=== PATIENT | female | born 1975 | race Caucasian/White ===

== ENCOUNTER 2021-05-15 17:17 | Inpatient (IN) | payer OTHER, SELFPAY ==
[2021-05-15 17:31] VITALS: BP 102/82; BP 103/74; PULSE 121; PULSE 88; RESP 18; TEMP 36.4; O2SAT 100; O2SAT 94; BMI 24.0
--- NOTE | 2021-05-15 17:45 | ECG_ITS ---
Test Reason : MED CLEARANCE Blood Pressure : / mmHG Vent. Rate : 114 BPM Atrial Rate : 114 BPM P-R Int : 120 ms QRS Dur : 090 ms QT Int : 372 ms P-R-T Axes : 043 028 041 degrees QTc Int : 512 ms Sinus tachycardia Otherwise normal ECG No previous ECGs available Referred By: Katina Sawyer Electronically Signed By:MARGARITA PAYTON
--- NOTE | 2021-05-15 18:19 | ED.PSYCH ---
HPI - Psych General Chief Complaint: Psychiatric Symptoms Stated Complaint: si Time Seen by Provider: 05/15/21 17:45 Source: patient and EMS Mode of arrival: EMS Limitations: no limitations History of Present Illness HPI Narrative: 46-year-old female with a past medical history of high blood pressure, high cholesterol, GERD, alcohol abuse here with complaints of feeling depressed, suicidal. Patient has been living in a hotel. Staff called [facility] for wellness check. Mobile crisis was called to the site and a Section 12 was placed for transport to the hospital. Patient tells me for the last 30 days she has been drinking 1 bottle of vodka a day feeling suicidal depressed, not taking any of her medications. 2 days ago she cut her wrist in an attempt to kill herself. States I did not cut deep enough but wish I did. No homicidal ideations. No hallucinations. No additional substance use. Tetanus up-to-date Related Data Home Medications Medication Instructions Recorded Confirmed amlodipine 5 mg tablet 5 mg PO DAILY 05/15/21 05/15/21 pantoprazole 40 mg tablet,delayed 40 mg PO DAILY 05/15/21 05/15/21 release pravastatin 10 mg tablet 10 mg PO DAILY 05/15/21 05/15/21 Allergies Allergy/AdvReac Type Severity Reaction Status Date / Time No Known Allergies Allergy Verified 05/15/21 17:28 Review of Systems Review of Systems: Yes all other systems are reviewed and are negative Constitutional: Constitutional: Reports no additional constitutional complaints, Denies body ache(s), Denies chills, Denies fever(s), Denies headache(s) and Denies weakness Eyes: Eyes: Reports no additional eye complaints and Denies change in vision ENT: Reports system reviewed and no additional complaints, except as documented, Denies dizziness, Denies headache(s), Denies nasal congestion, Denies nasal discharge and Denies neck pain Cardiovascular: Cardiovascular: Reports no additional cardiovascular complaints, Denies chest pain, Denies leg edema and Denies dyspnea Respiratory: Respiratory: Reports no additional respiratory complaints, Denies cough and Denies dyspnea Gastrointestinal: Gastrointestinal: Reports no additional gastrointestinal complaints, Denies abdominal pain, Denies diarrhea, Denies nausea and Denies vomiting Genitourinary: Genitourinary: Reports no additional female genitourinary complaints and Denies urinary incontinence Musculoskeletal: Musculoskeletal: Reports no additional musculoskeletal complaints, Denies back pain, Denies arthralgias, Denies joint swelling, Denies neck pain, Denies numbness and Denies tingling Integumentary/Breasts: Skin/Breast: Reports system reviewed and no additional complaints, except as docu and Denies rash Neurologic: Reports system reviewed and no additional complaints, except as documented, Denies Abnormal speech present, Denies dizziness, Denies headache(s), Denies numbness, Denies tingling and Denies weakness Psychiatric: Psychiatric: Denies anxiety, Reports depression, Denies homicidal ideation and Reports suicidal ideation [facility] Past Medical History Attestation statement: The following information was validated with the patient. Source: old records reviewed and nursing notes reviewed Medical History (Updated 05/15/21 @ 21:05 by Katina Sawyer NP) GERD (gastroesophageal reflux disease) Hyperlipidemia Hypertension Social History Social History Alcohol intake: current Advance Directives: No Advance Directives Information Provided: No Patient : No Physical Exam Vital Signs: Vital Signs: Last Vital Signs Temp 98.2 F 05/15/21 20:38 Pulse 113 H 05/15/21 20:38 Resp 19 05/15/21 20:38 BP 109/73 05/15/21 20:38 Pulse Ox 100 05/15/21 20:38 Body Mass Index 24.0 Const: General: cooperative, healthy appearing, comfortable and no acute distress Orientation/consciousness: patient oriented x3 Limitations: no limitations HENMT: Head: Yes normal to inspection Ears: hearing grossly normal bilaterally General nose exam: Normal external nose present Face and sinus: Yes normal facial exam Mouth: Normal oral and palatal mucosa present Throat: Yes posterior oropharynx normal Eyes: General: appearance normal, both eyes and all related structures Pupils: Equal, round and reactive pupils present Neck: Neck: Yes normal visual inspection Chest: Chest palpation & inspection: normal inspection of the chest Resp: Effort & Inspection: normal respiratory effort Auscultation: clear to auscultation bilaterally Cardio: Rate: regular rate Rhythm: regular rhythm Peripheral pulses: Peripheral pulses 2+ throughout GI: Inspection: Yes normal to inspection Palpation (GI): Soft to palpation and nontender Auscultation: normal bowel sounds Back/Spine/Pelvis: Thoracic/Lumbar Spine: thoracic and lumbar spine normal to inspection Skin: General skin exam: no rashes or lesions noted Neuro: General: patient oriented x3, no focal motor deficits and normal sensation to monofilament Cranial nerves: Yes CN's II-XII intact bilaterally and Yes Equal, round and reactive pupils present Cognition (Neuro): normal cognition Speech: No Abnormal speech present Gait exam (Neuro): Normal gait present Motor exam (neuro): 5/5 motor strength present throughout Extrem: Other: To the right volar wrist there is a 3cm laceration. bleeding controlled General: Yes normal to inspection Psych: Other: flat affect Appearance: disheveled Course Course Course Narrative: 46-year-old female here with complaints of depression, suicidal thoughts, self-harm 2 days ago to the right wrist, daily alcohol abuse. Sent in on Section 12. Will need labs, drug screen, crisis evaluation. Right wrist was cleansed with hydrogen peroxide and normal saline and Steri-Strips replaced with a wrap. 2010-Labs reviewed. Sodium 122. Potassium 2.8. Chloride 88, carbon dioxide 16. Anion gap 21. Normal renal function. Spoke to Dr. Brewer from Nephrology. Recommended adding serum osmolality, urine studies. Recommended 2 L of lactated Ringer's and then a recheck of the sodium level. Also recommended potassium replacement. Ordered 60 mg of p.o. potassium and 10 mEq IV. ?multifactorial from alcohol use, poor PO intake. Nursing aware and patient was moved from the Behavioral pod to a monitored room. Seizure precautions placed. Spoke to Dr. Dodd who accepted admission from the medicine team. [facility] - Psych Medical Records Attestation: I reviewed the patient's medical records. Lab Data Attestation: I reviewed the patient's lab results. Result diagrams: 05/15/21 18:17 05/15/21 18:17 Labs: Lab Results 05/15/21 05/15/21 05/15/21 Range/Units 17:54 17:54 18:16 WBC (4.8-10.8) X10*3/uL RBC (4.20-5.50) X10*6/uL Hgb (12.0-16.0) g/dl Hct (37-47) % MCV (80-98) fL MCH (27.0-33.0) pg MCHC (31.0-35.0) g/dl RDW (11.0-16.0) % Plt Count (160-400) X10*3/uL MPV (9.4-12.3) fL Immature Gran % (Auto) (0.0-0.4) % Neut % (Auto) (45-73) % Lymph % (Auto) (20-40) % [place] % (Auto) (2-11) % Eos % (Auto) (0-4) % Baso % (Auto) (0-2) % Lymph # (Auto) (1.2-4.9) X10*3/uL [place] # (Auto) (0.1-1.2) X10*3/uL Eos # (Auto) (0.0-0.4) X10*3/uL Baso # (Auto) (0.0-0.2) X10*3/uL Abs Immat Gran (auto) (0.00-0.03) X10*3/uL Absolute Neuts (auto) (2.0-8.3) X10*3/uL Absolute Nucleated RBC (0.0-0.012) X10*3/uL Nucleated RBC % (auto) (0.0-0.2) /100WBC VBG pH (7.32-7.43) VBG pCO2 mmHg VBG pO2 mmHg VBG HCO3 (22-26) mmol/L VBG O2 Saturation % VBG Base Excess mmol/L Sodium (135-145) mmol/L Potassium (3.3-5.1) mmol/L Chloride (96-108) mmol/L Carbon Dioxide (22-29) mmol/L Anion Gap (12-20) BUN (9-16) mg/dL Creatinine (0.5-1.4) mg/dL Estim Creat Clear Calc Estimated GFR Random Glucose (60-115) mg/dL Lactic Acid (0.5-2.0) mmol/L Calcium (8.4-10.2) mg/dL Magnesium (1.6-2.6) mg/dL Total Bilirubin (0.0-1.0) mg/dL Direct Bilirubin (0.0-0.5) mg/dL AST (5-31) U/L ALT (0-31) U/L Alkaline Phosphatase (39-117) U/L Total Protein (6.5-8.0) g/dL Albumin (3.5-5.0) g/dL Urine Color Urine Appearance Urine pH (5.0-8.0) Ur Specific [place] (1.005-1.025) Urine Protein (NEG-TRACE) MG/DL Urine Glucose (UA) (NEG) MG/DL Urine Ketones (NEG) MG/DL Urine Blood (NEG) Urine Nitrite (NEG) Ur Leukocyte Esterase (NEG) Salicylates (15-30) mg/dL Urine Opiates Screen Not Detected (Not Detect) Urine Fentanyl Screen Not Detected (Not Detect) Acetaminophen (<30) mcg/mL Ur Barbiturates Screen Not Detected (Not Detect) Ur Phencyclidine Scrn Not Detected (Not Detect) Ur Amphetamines Screen Not Detected (Not Detect) U Benzodiazepines Scrn Not Detected (Not Detect) Urine Cocaine Screen Not Detected (Not Detect) U Marijuana (THC) Screen POSITIVE H (Not Detect) Ethyl Alcohol < 10 mg/dL Acetone, Qual (Negative) COVID-19 ([facility]) Negative (Negative) COVID-19 Clin Com See Note 05/15/21 05/15/21 05/15/21 Range/Units 18:17 18:17 18:17 WBC 7.9 (4.8-10.8) X10*3/uL RBC 3.71 L (4.20-5.50) X10*6/uL Hgb 12.5 (12.0-16.0) g/dl Hct 33.5 L (37-47) % MCV 90.3 (80-98) fL MCH 33.7 H (27.0-33.0) pg MCHC 37.3 H (31.0-35.0) g/dl RDW 13.2 (11.0-16.0) % Plt Count 176 (160-400) X10*3/uL MPV 10.9 (9.4-12.3) fL Immature Gran % (Auto) 0.8 H (0.0-0.4) % Neut % (Auto) 69.3 (45-73) % Lymph % (Auto) 15.6 L (20-40) % [place] % (Auto) 13.6 H (2-11) % Eos % (Auto) 0.6 (0-4) % Baso % (Auto) 0.1 (0-2) % Lymph # (Auto) 1.2 (1.2-4.9) X10*3/uL [place] # (Auto) 1.1 (0.1-1.2) X10*3/uL Eos # (Auto) 0.1 (0.0-0.4) X10*3/uL Baso # (Auto) 0.0 (0.0-0.2) X10*3/uL Abs Immat Gran (auto) 0.06 H (0.00-0.03) X10*3/uL Absolute Neuts (auto) 5.5 (2.0-8.3) X10*3/uL Absolute Nucleated RBC 0.000 (0.0-0.012) X10*3/uL Nucleated RBC % (auto) 0.0 (0.0-0.2) /100WBC VBG pH (7.32-7.43) VBG pCO2 mmHg VBG pO2 mmHg VBG HCO3 (22-26) mmol/L VBG O2 Saturation % VBG Base Excess mmol/L Sodium 122 L (135-145) mmol/L Potassium 2.8 L (3.3-5.1) mmol/L Chloride 88 L (96-108) mmol/L Carbon Dioxide 16 L (22-29) mmol/L Anion Gap 21 H (12-20) BUN 21 H (9-16) mg/dL Creatinine 0.80 (0.5-1.4) mg/dL Estim Creat Clear Calc 74.2 Estimated GFR > 60 Random Glucose 113 (60-115) mg/dL Lactic Acid (0.5-2.0) mmol/L Calcium 9.9 (8.4-10.2) mg/dL Magnesium 2.2 (1.6-2.6) mg/dL Total Bilirubin 0.8 (0.0-1.0) mg/dL Direct Bilirubin 0.3 (0.0-0.5) mg/dL AST 38 H (5-31) U/L ALT 17 (0-31) U/L Alkaline Phosphatase 85 (39-117) U/L Total Protein 7.4 (6.5-8.0) g/dL Albumin 4.7 (3.5-5.0) g/dL Urine Color Urine Appearance Urine pH (5.0-8.0) Ur Specific [place] (1.005-1.025) Urine Protein (NEG-TRACE) MG/DL Urine Glucose (UA) (NEG) MG/DL Urine Ketones (NEG) MG/DL Urine Blood (NEG) Urine Nitrite (NEG) Ur Leukocyte Esterase (NEG) Salicylates < 5.0 L (15-30) mg/dL Urine Opiates Screen (Not Detect) Urine Fentanyl Screen (Not Detect) Acetaminophen < 1 (<30) mcg/mL Ur Barbiturates Screen (Not Detect) Ur Phencyclidine Scrn (Not Detect) Ur Amphetamines Screen (Not Detect) U Benzodiazepines Scrn (Not Detect) Urine Cocaine Screen (Not Detect) U Marijuana (THC) Screen (Not Detect) Ethyl Alcohol mg/dL Acetone, Qual (Negative) COVID-19 ([facility]) (Negative) COVID-19 Clin Com 05/15/21 05/15/21 05/15/21 Range/Units 20:24 20:31 20:31 WBC (4.8-10.8) X10*3/uL RBC (4.20-5.50) X10*6/uL Hgb (12.0-16.0) g/dl Hct (37-47) % MCV (80-98) fL MCH (27.0-33.0) pg MCHC (31.0-35.0) g/dl RDW (11.0-16.0) % Plt Count (160-400) X10*3/uL MPV (9.4-12.3) fL Immature Gran % (Auto) (0.0-0.4) % Neut % (Auto) (45-73) % Lymph % (Auto) (20-40) % [place] % (Auto) (2-11) % Eos % (Auto) (0-4) % Baso % (Auto) (0-2) % Lymph # (Auto) (1.2-4.9) X10*3/uL [place] # (Auto) (0.1-1.2) X10*3/uL Eos # (Auto) (0.0-0.4) X10*3/uL Baso # (Auto) (0.0-0.2) X10*3/uL Abs Immat Gran (auto) (0.00-0.03) X10*3/uL Absolute Neuts (auto) (2.0-8.3) X10*3/uL Absolute Nucleated RBC (0.0-0.012) X10*3/uL Nucleated RBC % (auto) (0.0-0.2) /100WBC VBG pH (7.32-7.43) VBG pCO2 mmHg VBG pO2 mmHg VBG HCO3 (22-26) mmol/L VBG O2 Saturation % VBG Base Excess mmol/L Sodium (135-145) mmol/L Potassium (3.3-5.1) mmol/L Chloride (96-108) mmol/L Carbon Dioxide (22-29) mmol/L Anion Gap (12-20) BUN (9-16) mg/dL Creatinine (0.5-1.4) mg/dL Estim Creat Clear Calc Estimated GFR Random Glucose (60-115) mg/dL Lactic Acid 1.2 (0.5-2.0) mmol/L Calcium (8.4-10.2) mg/dL Magnesium (1.6-2.6) mg/dL Total Bilirubin (0.0-1.0) mg/dL Direct Bilirubin (0.0-0.5) mg/dL AST (5-31) U/L ALT (0-31) U/L Alkaline Phosphatase (39-117) U/L Total Protein (6.5-8.0) g/dL Albumin (3.5-5.0) g/dL Urine Color YELLOW Urine Appearance CLEAR Urine pH 6.5 (5.0-8.0) Ur Specific [place] <= 1.005 (1.005-1.025) Urine Protein TRACE (NEG-TRACE) MG/DL Urine Glucose (UA) NEG (NEG) MG/DL Urine Ketones 40 (NEG) MG/DL Urine Blood NEG (NEG) Urine Nitrite NEG (NEG) Ur Leukocyte Esterase NEG (NEG) Salicylates (15-30) mg/dL Urine Opiates Screen (Not Detect) Urine Fentanyl Screen (Not Detect) Acetaminophen (<30) mcg/mL Ur Barbiturates Screen (Not Detect) Ur Phencyclidine Scrn (Not Detect) Ur Amphetamines Screen (Not Detect) U Benzodiazepines Scrn (Not Detect) Urine Cocaine Screen (Not Detect) U Marijuana (THC) Screen (Not Detect) Ethyl Alcohol mg/dL Acetone, Qual Negative (Negative) COVID-19 ([facility]) (Negative) COVID-19 Clin Com 05/15/21 Range/Units 20:37 WBC (4.8-10.8) X10*3/uL RBC (4.20-5.50) X10*6/uL Hgb (12.0-16.0) g/dl Hct (37-47) % MCV (80-98) fL MCH (27.0-33.0) pg MCHC (31.0-35.0) g/dl RDW (11.0-16.0) % Plt Count (160-400) X10*3/uL MPV (9.4-12.3) fL Immature Gran % (Auto) (0.0-0.4) % Neut % (Auto) (45-73) % Lymph % (Auto) (20-40) % [place] % (Auto) (2-11) % Eos % (Auto) (0-4) % Baso % (Auto) (0-2) % Lymph # (Auto) (1.2-4.9) X10*3/uL [place] # (Auto) (0.1-1.2) X10*3/uL Eos # (Auto) (0.0-0.4) X10*3/uL Baso # (Auto) (0.0-0.2) X10*3/uL Abs Immat Gran (auto) (0.00-0.03) X10*3/uL Absolute Neuts (auto) (2.0-8.3) X10*3/uL Absolute Nucleated RBC (0.0-0.012) X10*3/uL Nucleated RBC % (auto) (0.0-0.2) /100WBC VBG pH 7.44 H (7.32-7.43) VBG pCO2 19 mmHg VBG pO2 43 mmHg VBG HCO3 13 L (22-26) mmol/L VBG O2 Saturation 76.0 % VBG Base Excess -7.6 mmol/L Sodium (135-145) mmol/L Potassium (3.3-5.1) mmol/L Chloride (96-108) mmol/L Carbon Dioxide (22-29) mmol/L Anion Gap (12-20) BUN (9-16) mg/dL Creatinine (0.5-1.4) mg/dL Estim Creat Clear Calc Estimated GFR Random Glucose (60-115) mg/dL Lactic Acid (0.5-2.0) mmol/L Calcium (8.4-10.2) mg/dL Magnesium (1.6-2.6) mg/dL Total Bilirubin (0.0-1.0) mg/dL Direct Bilirubin (0.0-0.5) mg/dL AST (5-31) U/L ALT (0-31) U/L Alkaline Phosphatase (39-117) U/L Total Protein (6.5-8.0) g/dL Albumin (3.5-5.0) g/dL Urine Color Urine Appearance Urine pH (5.0-8.0) Ur Specific [place] (1.005-1.025) Urine Protein (NEG-TRACE) MG/DL Urine Glucose (UA) (NEG) MG/DL Urine Ketones (NEG) MG/DL Urine Blood (NEG) Urine Nitrite (NEG) Ur Leukocyte Esterase (NEG) Salicylates (15-30) mg/dL Urine Opiates Screen (Not Detect) Urine Fentanyl Screen (Not Detect) Acetaminophen (<30) mcg/mL Ur Barbiturates Screen (Not Detect) Ur Phencyclidine Scrn (Not Detect) Ur Amphetamines Screen (Not Detect) U Benzodiazepines Scrn (Not Detect) Urine Cocaine Screen (Not Detect) U Marijuana (THC) Screen (Not Detect) Ethyl Alcohol mg/dL Acetone, Qual (Negative) COVID-19 ([facility]) (Negative) COVID-19 Clin Com ECG Data Attestation: I personally reviewed and interpreted this ECG as follows: ECG interpretation date: 05/15/21 ECG interpretation time: 18:02 Interpretation: ST with rate 114, normal pr, normal qrs, normal qt Discharge Plan Discharge Clinical Impression: Acute hyponatremia, Suicidal thoughts, Acute hypokalemia, Alcohol abuse Patient Disposition: Admitted As Inpatient Prescriptions: No Action amlodipine 5 mg Tablet 5 mg PO DAILY RF: 0 pravastatin 10 mg Tablet 10 mg PO DAILY RF: 0 pantoprazole 40 mg Tablet,Delayed Release (Dr/Ec) 40 mg PO DAILY RF: 0
[2021-05-15 18:24] LABS: MANUAL DIFF FLAG NO
[2021-05-15 18:43] LABS: Acetaminophen LAB < 1 mcg/mL (<30)
[2021-05-15 18:43] LABS: COVID-19 Test Negative (Negative); IDNOW Serial# 9DD0AD1C
[2021-05-15 18:44] LABS: Amphetamine Screen Urine Not Detected (Not Detect); Barbiturates, Urine Not Detected (Not Detect); Benzodiazepines Screen Urine Not Detected (Not Detect); Cannabinoid Screen Urine POSITIVE (Not Detect); Cocaine Screen Urine Not Detected (Not Detect); Fentanyl, urine Not Detected (Not Detect); Opiate Screen Urine Not Detected (Not Detect); Phencyclidine Screen Urine Not Detected (Not Detect)
[2021-05-15 18:45] LABS: Alanine Aminotransferase 17 U/L (0-31); Albumin Level 4.7 g/dL (3.5-5.0); Alkaline Phosphatase 85 U/L (39-117); Aspartate Amino Transferase 38 U/L (5-31); Bilirubin Direct 0.3 mg/dL (0.0-0.5); Bilirubin Total 0.8 mg/dL (0.0-1.0); Blood Urea Nitrogen 21 mg/dL (9-16); Calcium 9.9 mg/dL (8.4-10.2); Creatinine Clr Calc Pharmacy 74.2; Estimated Glomerular Filt Rate > 60; Glucose Random 113 mg/dL (60-115); Magnesium 2.2 mg/dL (1.6-2.6); Total Protein 7.4 g/dL (6.5-8.0)
[2021-05-15 18:55] LABS: Anion Gap 21 (12-20); Carbon Dioxide 16 mmol/L (22-29); Chloride 88 mmol/L (96-108); Potassium 2.8 mmol/L (3.3-5.1); Sodium 122 mmol/L (135-145)
[2021-05-15 18:56] LABS: Salicylate < 5.0 mg/dL (15-30)
[2021-05-15 19:08] LABS: Basophils Percent Auto 0.1 % (0-2); Eosinophils Absolute Auto 0.1 X10*3/uL (0.0-0.4); Eosinophils Percent Auto 0.6 % (0-4); Hematocrit 33.5 % (37-47); Hemoglobin 12.5 g/dl (12.0-16.0); Imm Gran Abs Auto 0.06 X10*3/uL (0.00-0.03); Imm Gran Pct Auto 0.8 % (0.0-0.4); Lymphocytes Absolute Auto 1.2 X10*3/uL (1.2-4.9); Lymphocytes Percent Auto 15.6 % (20-40); Mean Corpuscular HGB Conc 37.3 g/dl (31.0-35.0); Mean Corpuscular Hemoglobin 33.7 pg (27.0-33.0); Mean Corpuscular Volume 90.3 fL (80-98); Mean Platelet Volume 10.9 fL (9.4-12.3); Monocytes Absolute Auto 1.1 X10*3/uL (0.1-1.2); Monocytes Percent Auto 13.6 % (2-11); Neutrophils Absolute Auto 5.5 X10*3/uL (2.0-8.3); Neutrophils Percent Auto 69.3 % (45-73); Platelet Count 176 X10*3/uL (160-400); Red Blood Count 3.71 X10*6/uL (4.20-5.50); Red Cell Distribution Width 13.2 % (11.0-16.0); White Blood Count 7.9 X10*3/uL (4.8-10.8)
[2021-05-15] MEDS: LORazepam 1 MG TABLET PO (19:32)
[2021-05-15 19:33] LABS: Ethanol < 10 mg/dL
--- NOTE | 2021-05-15 20:35 | MHC.CARE ---
Pt is being medically admitted due to electrolytes. She will require a [facility] Crisis asssessment when medically cleared. Staff should consult with CARE Team.
--- NOTE | 2021-05-15 20:36 | PHA.MEDREC ---
Pharmacy Consult ? Medication Reconciliation Pharmacy has completed the medication reconciliation.
[2021-05-15 20:38] VITALS: BP 109/73; PULSE 113; RESP 19; TEMP 36.8; O2SAT 100
[2021-05-15 20:43] LABS: VBG Base Excess -7.6 mmol/L; VBG HCO3 13 mmol/L (22-26); VBG pCO2 19 mmHg; VBG pH 7.44 (7.32-7.43); VBG pO2 43 mmHg
[2021-05-15 20:43] LABS: Venous Blood Gas Refer to POC result
[2021-05-15] MEDS: 0.9 % Sodium Chloride 1,000 ML 999 ML IV (20:43)
[2021-05-15] MEDS: Potassium Chloride ER 20 MEQ TAB.ER.PRT 60 MEQ PO (20:45)
[2021-05-15 20:52] LABS: Glucose Urine UA NEG (NEG); Leukocyte Esterase Urine NEG (NEG); Nitrite Urine NEG (NEG); PH 6.5 (5.0-8.0); Specific Gravity - Urine <= 1.005 (1.005-1.025); Urine Blood NEG (NEG); Urine Ketones 40 MG/DL (NEG); Urine Protein TRACE MG/DL (NEG-TRACE)
[2021-05-15 20:54] LABS: Appearance Urine CLEAR; Color Urine YELLOW
[2021-05-15] MEDS: Potassium Chloride/H20 10 MEQ/100 ML PIGGYBACK 100 MEQ IV (20:54)
[2021-05-15 20:58] LABS: Acetone, serum QL Negative (Negative)
[2021-05-15 21:00] LABS: Lactic Acid 1.2 mmol/L (0.5-2.0)
--- NOTE | 2021-05-15 21:07 | PC.NURSE ---
Per Katina FISHER, stop NS and hang 2L LR instead.
[2021-05-15 21:08] LABS: Osmolality, Serum 255 mosm/kg (281-305)
[2021-05-15] MEDS: Lactated Ringers 2,000 ML 999 ML IV (21:09)
--- NOTE | 2021-05-15 21:19 | PC.NURSE ---
Pt with red fall prevention socks on, red fall wrist band and red star posted outside of room
[2021-05-15 21:29] LABS: Osmolality Urine 365 mosm/kg (373-1093)
[2021-05-15 21:38] LABS: Creatinine Urine 128.88 mg/dL; Potassium Urine Random 5.6 mmol/L; Sodium Urine Random < 20.0 mmol/L
[2021-05-15 21:54] LABS: Chloride Urine Random < 20.0 mmol/L; Uric Acid Urine Random 46.2 mg/dL
[2021-05-15 22:00] VITALS: BP 93/70; PULSE 104; RESP 15; O2SAT 99
--- NOTE | 2021-05-15 22:00 | MHC.CM.PN ---
CM met with admitted pt with bed pending. Pt mother, Karen Hodges at bedside. Pt suicidal. Expressing wishes to . Did try to cut R wrist. Pt tells CM she has lost everything . Has never done this before. 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 Pt has flat affect, but is weepy. Pt has been living in a hotel and drinking. Hotel staff called [employer] for Well Check. Pt was brought to ED. Pt uses no DME and has no services. D/C plan discussed with patient and her mother. Pt understands that she will be treated medically for hyponatremia and hypokalemia and when she is medically stable, the CARE team will see her inpatient to evaluate her psychologically/psychiatrically and determine if she needs inpatient psychiatric treatment. Pt expressed several times her wish to to CM. Pt c/o deep depression. CM listened and provide emotional supports. Pt had a HCP, but wanted to change her HCP. New HCP reviewed and signed. HCP/mother Karen Hodges ([phone]). Copies given. HCP uploaded into [employer] and [employer]. CM contact card given. CM to follow for d/c needs.
[2021-05-15] MEDS: Potassium Chloride Packet 20 MEQ PACKET 40 MEQ PO (22:15)
[2021-05-15] MEDS: Enoxaparin Sodium 40 MG/0.4 ML SYRINGE SUBCUT (22:17)
[2021-05-15] MEDS: PHENobarbitaL sodium 130 MG/ML VIAL 219 MG IM (22:17)
[2021-05-15 22:40] LABS: Anion Gap 14 (12-20); Blood Urea Nitrogen 17 mg/dL (9-16); Calcium 8.4 mg/dL (8.4-10.2); Carbon Dioxide 18 mmol/L (22-29); Chloride 94 mmol/L (96-108); Creatinine Clr Calc Pharmacy 83.6; Estimated Glomerular Filt Rate > 60; Glucose Random 159 mg/dL (60-115); Potassium 3.2 mmol/L (3.3-5.1); Sodium 123 mmol/L (135-145)
--- NOTE | 2021-05-15 23:29 | PC.NURSE ---
Pt's BMP drawn prior to completion of 2L LR. BLUE Duenas who is receiving pt upstairs was made aware. This RN to order repeat BMP after ensuring completion of LR
--- NOTE | 2021-05-15 23:35 | PC.NURSE ---
Per BLUE Serrano shed workers supervisor, pt unable to be transferred to room 9 until sitter is available.
[2021-05-16] VITALS (16 sets, daily range): BP systolic 80–110; BP diastolic 50–68; PULSE 84–109; RESP 12–20; TEMP 36.3–36.9; O2SAT 98–100
[2021-05-16] MEDS: Potassium Chloride Packet 20 MEQ PACKET 40 MEQ PO ×2 (01:01→14:06)
[2021-05-16] MEDS: PHENobarbitaL sodium 130 MG/ML VIAL 164 MG IM ×2 (01:51→05:09)
[2021-05-16] MEDS: oxyCODONE HCl Immed Release 5 MG TABLET PO ×2 (02:30→09:16)
[2021-05-16] MEDS: ondansetron HCL 4 MG/2 ML VIAL IVPUSH (02:30)
[2021-05-16 06:10] LABS: MANUAL DIFF FLAG NO
[2021-05-16 06:51] LABS: Basophils Percent Auto 0.4 % (0-2); Eosinophils Absolute Auto 0.1 X10*3/uL (0.0-0.4); Eosinophils Percent Auto 1.4 % (0-4); Hematocrit 27.5 % (37-47); Hemoglobin 9.9 g/dl (12.0-16.0); Imm Gran Pct Auto 1.2 % (0.0-0.4); Lymphocytes Percent Auto 24.4 % (20-40); Mean Corpuscular Hemoglobin 33.3 pg (27.0-33.0); Mean Corpuscular Volume 92.6 fL (80-98); Mean Platelet Volume 10.7 fL (9.4-12.3); Monocytes Absolute Auto 1.3 X10*3/uL (0.1-1.2); Monocytes Percent Auto 15.9 % (2-11); Neutrophils Absolute Auto 4.6 X10*3/uL (2.0-8.3); Neutrophils Percent Auto 56.7 % (45-73); Platelet Count 189 X10*3/uL (160-400); Red Blood Count 2.97 X10*6/uL (4.20-5.50); Red Cell Distribution Width 13.1 % (11.0-16.0); White Blood Count 8.1 X10*3/uL (4.8-10.8)
--- NOTE | 2021-05-16 06:51 | PM.IMHP ---
History of Present Illness Date of Service: 05/15/21 Chief Complaint: Suicidal ideation This is a 46-year-old female with a past medical history of hypertension, GERD, hyperlipidemia and alcohol abuse who presents to the hospital after the hotel she was residing on called the police for wellness check. Patient reports that she had locked herself in a hotel for the past month drinking heavily about 1 L of vodka daily as well as beer, due to a break-up with her fiance due to her history of alcohol abuse. Patient reports suicidal ideation, she attempted suicide by cutting her wrist but was unsuccessful in committing suicide. She reports that she has been drinking fluids but has not been eating well, denies any headache, no change in vision, no abdominal pain nausea or vomiting, no diarrhea constipation, no urinary symptoms. Reports dizziness but no chest pain. And no shortness of breath. She continues to be suicidal. On arrival to the ED patient hemodynamically stable with no significant abnormal vitals except for a heart rate of 121 Labs are significant for WBC count of 7.9, hemoglobin of 12.5, pH of 7.44, sodium of 122, potassium of 2.8, serum osmolarity of 255, urine osmolality of 365, sodium random less than 20, specific acid level of less than 5 Nephrology was consulted, advised given patient 2 L of LR and admitting. Review of Systems Review of Systems: Yes all other systems are reviewed and are negative [facility] Medical History Alcohol abuse GERD (gastroesophageal reflux disease) Hyperlipidemia Hypertension Social History Household Members: Spouse Household Members Other:: Fiance Housing: House Do you presently have visiting nurse or other home services: No Alcohol intake: current Patient Tobacco Use Status: Current everyday Tobacco user Tobacco use type: Cigarette Cigarettes Per Day: 8 Years Smoked: 36 Patient Interested in Nicotine Replacement: No Patient Given Instructions on How to Stop Smoking: Yes Date Education Initiated: 05/16/21 Second Hand Smoke Exposure: No Use of substances other than those prescribed or required for medical reasons: Yes Substance Use Type: Marijuana Substance Use Frequency: Occasionally Currently Displaying Signs/Symptoms of Drug Intoxication Withdrawal: No Any prior treatment program specific to substance use: No Have you been hit, kicked, punched, or otherwise hurt by someone within the past year? If so, by whom?: No Do you feel safe in your current relationship?: Yes Is there a partner from a previous relationship who is making you feel unsafe now?: No Are you made to feel afraid or neglected: No Advance Directives: No Advance Directives Information Provided: No Do you have thoughts of harming others: None Do you have a plan to hurt others: No Plan Recently lost weight without trying: Unsure How much weight loss: Unsure Eating poorly because of decreased appetite: Yes Nutrition screen score: 5 Nutrition Risks: Poor intake 0-25% >4 days Patient : No : No Poor oral hygiene: No service: No Current occupational status: unemployed Meds Allergies Allergy/AdvReac Type Severity Reaction Status Date / Time No Known Allergies Allergy Verified 05/15/21 17:28 Active Medications: Current Medications Generic Name Dose Route Start Last Admin Trade Name Freq PRN Reason Stop Dose Admin Acetaminophen 650 mg 05/15/21 21:36 Acetaminophen 325 Mg Tablet PO Q6H PRN Pain, Mild (Pain Scale 1-3) Amlodipine Besylate 5 mg 05/16/21 09:00 Amlodipine Besylate 5 Mg Tablet PO DAILY [facility] Protocol Docusate Sodium 100 mg 05/15/21 21:36 Docusate Sodium 100 Mg Capsule PO DAILY PRN Constipation Enoxaparin Sodium 40 mg 05/15/21 22:00 05/15/21 22:17 Enoxaparin Sodium 40 Mg/0.4 Ml Syringe SUBCUT 40 mg Q24H PERLITA Administration Medication 1 each 05/16/21 09:00 No Benzodiazepines MISCELLANE DAILY [facility] Omeprazole 20 mg 05/16/21 09:00 Omeprazole 20 Mg Capsule.Dr PO DAILY [facility] Ondansetron HCl 4 mg 05/15/21 21:36 05/16/21 02:30 Ondansetron Hcl 4 Mg/2 Ml Vial IVPUSH 4 mg Q8H PRN Administration Nausea and Vomiting Oxycodone HCl 5 mg 05/15/21 21:36 05/16/21 02:30 Oxycodone Hcl Immed Release 5 Mg Tablet PO 5 mg Q6H PRN Administration Pain, Severe (Pain Scale 7-10) Pharmacy Consult 1 each 05/15/21 17:46 Consult Rx Perform Med Rec MISCELLANE ONCE PRN Consult order Pharmacy Consult 1 each 05/15/21 20:19 Consult Rx Perform Med Rec MISCELLANE ONCE PRN Consult order Phenobarbital 45 mg 05/16/21 09:00 Phenobarbital 15 Mg Tablet PO 05/17/21 21:01 BID [facility] Phenobarbital 30 mg 05/18/21 09:00 Phenobarbital 30 Mg Tablet PO 05/19/21 21:01 BID [facility] Phenobarbital 15 mg 05/20/21 09:00 Phenobarbital 15 Mg Tablet PO 05/21/21 09:01 DAILY [facility] Pravastatin Sodium 10 mg 05/16/21 09:00 Pravastatin Sodium 10 Mg Tablet PO DAILY [facility] Sodium Chloride 3 ml 05/16/21 00:00 05/16/21 01:00 0.9 % Sodium Chloride Flush 3 Ml Syringe IVFLUSH Not Given QSHIFT [facility] Home Medications Medication Instructions Recorded Confirmed Last Taken Type amlodipine 5 mg tablet 5 mg PO DAILY 05/15/21 05/15/21 Unknown History pantoprazole 40 mg tablet,delayed 40 mg PO DAILY 05/15/21 05/15/21 Unknown History release pravastatin 10 mg tablet 10 mg PO DAILY 05/15/21 05/15/21 Unknown History Physical Exam Vital Signs and Narrative: Vital Signs: Last Vital Signs Temp 98.5 F 05/16/21 02:04 Pulse 109 H 05/16/21 02:04 Resp 16 05/16/21 02:04 BP 98/63 05/16/21 02:04 Pulse Ox 99 05/16/21 02:04 Body Mass Index 24.0 Const: General: cooperative and no acute distress Orientation/consciousness: patient oriented x3 Eyes: General: appearance normal, both eyes and all related structures Resp: Effort & Inspection: normal respiratory effort and able to speak in complete sentences Auscultation: clear to auscultation bilaterally Cardio: Rate: regular rate Rhythm: regular rhythm GI: Palpation (GI): Soft to palpation Auscultation: normal bowel sounds Skin: Other: Has a small laceration on the right wrist Neuro: Other: No neurological deficits General: patient oriented x3 Cognition (Neuro): normal cognition Extrem: General: Yes normal to inspection and Yes no pedal edema Results Labs CBC and Chem 7: 05/15/21 18:17 05/15/21 21:59 Labs: Laboratory Results - last 24 hr 05/15/21 05/15/21 05/15/21 17:54 17:54 18:16 MCV MCH MCHC RDW Plt Count MPV Immature Gran % (Auto) Neut % (Auto) Lymph % (Auto) [place] % (Auto) Eos % (Auto) Baso % (Auto) Lymph # (Auto) [place] # (Auto) Eos # (Auto) Baso # (Auto) Abs Immat Gran (auto) Absolute Neuts (auto) Absolute Nucleated RBC Nucleated RBC % (auto) VBG pH VBG pCO2 VBG pO2 VBG HCO3 VBG O2 Saturation VBG Base Excess Anion Gap Estim Creat Clear Calc Estimated GFR Random Glucose Osmolality Lactic Acid Calcium Magnesium Total Bilirubin Direct Bilirubin AST ALT Alkaline Phosphatase Total Protein Albumin Urine Color Urine Appearance Urine pH Ur Specific [place] Urine Protein Urine Glucose (UA) Urine Ketones Urine Blood Urine Nitrite Ur Leukocyte Esterase Urine Osmolality Ur Random Sodium Ur Random Potassium Ur Random Chloride Ur Random Uric Acid Urine Creatinine Salicylates Urine Opiates Screen Not Detected Urine Fentanyl Screen Not Detected Acetaminophen Ur Barbiturates Screen Not Detected Ur Phencyclidine Scrn Not Detected Ur Amphetamines Screen Not Detected U Benzodiazepines Scrn Not Detected Urine Cocaine Screen Not Detected U Marijuana (THC) Screen POSITIVE H Ethyl Alcohol < 10 Acetone, Qual COVID-19 ([facility]) Negative COVID-19 Clin Com See Note 05/15/21 05/15/21 05/15/21 18:17 18:17 18:17 MCV 90.3 MCH 33.7 H MCHC 37.3 H RDW 13.2 Plt Count 176 MPV 10.9 Immature Gran % (Auto) 0.8 H Neut % (Auto) 69.3 Lymph % (Auto) 15.6 L [place] % (Auto) 13.6 H Eos % (Auto) 0.6 Baso % (Auto) 0.1 Lymph # (Auto) 1.2 [place] # (Auto) 1.1 Eos # (Auto) 0.1 Baso # (Auto) 0.0 Abs Immat Gran (auto) 0.06 H Absolute Neuts (auto) 5.5 Absolute Nucleated RBC 0.000 Nucleated RBC % (auto) 0.0 VBG pH VBG pCO2 VBG pO2 VBG HCO3 VBG O2 Saturation VBG Base Excess Anion Gap 21 H Estim Creat Clear Calc 74.2 Estimated GFR > 60 Random Glucose 113 Osmolality Lactic Acid Calcium 9.9 Magnesium 2.2 Total Bilirubin 0.8 Direct Bilirubin 0.3 AST 38 H ALT 17 Alkaline Phosphatase 85 Total Protein 7.4 Albumin 4.7 Urine Color Urine Appearance Urine pH Ur Specific [place] Urine Protein Urine Glucose (UA) Urine Ketones Urine Blood Urine Nitrite Ur Leukocyte Esterase Urine Osmolality Ur Random Sodium Ur Random Potassium Ur Random Chloride Ur Random Uric Acid Urine Creatinine Salicylates < 5.0 L Urine Opiates Screen Urine Fentanyl Screen Acetaminophen < 1 Ur Barbiturates Screen Ur Phencyclidine Scrn Ur Amphetamines Screen U Benzodiazepines Scrn Urine Cocaine Screen U Marijuana (THC) Screen Ethyl Alcohol Acetone, Qual COVID-19 ([facility]) COVID-19 [employer] 05/15/21 05/15/21 05/15/21 20:23 20:23 20:23 MCV MCH MCHC RDW Plt Count MPV Immature Gran % (Auto) Neut % (Auto) Lymph % (Auto) [place] % (Auto) Eos % (Auto) Baso % (Auto) Lymph # (Auto) [place] # (Auto) Eos # (Auto) Baso # (Auto) Abs Immat Gran (auto) Absolute Neuts (auto) Absolute Nucleated RBC Nucleated RBC % (auto) VBG pH VBG pCO2 VBG pO2 VBG HCO3 VBG O2 Saturation VBG Base Excess Anion Gap Estim Creat Clear Calc Estimated GFR Random Glucose Osmolality Lactic Acid Calcium Magnesium Total Bilirubin Direct Bilirubin AST ALT Alkaline Phosphatase Total Protein Albumin Urine Color Urine Appearance Urine pH Ur Specific [place] Urine Protein Urine Glucose (UA) Urine Ketones Urine Blood Urine Nitrite Ur Leukocyte Esterase Urine Osmolality 365 L Ur Random Sodium < 20.0 Ur Random Potassium 5.6 Ur Random Chloride < 20.0 Ur Random Uric Acid 46.2 Urine Creatinine 128.88 Salicylates Urine Opiates Screen Urine Fentanyl Screen Acetaminophen Ur Barbiturates Screen Ur Phencyclidine Scrn Ur Amphetamines Screen U Benzodiazepines Scrn Urine Cocaine Screen U Marijuana (THC) Screen Ethyl Alcohol Acetone, Qual COVID-19 ([facility]) COVID-19 [employer] 05/15/21 05/15/21 05/15/21 20:24 20:31 20:31 MCV MCH MCHC RDW Plt Count MPV Immature Gran % (Auto) Neut % (Auto) Lymph % (Auto) [place] % (Auto) Eos % (Auto) Baso % (Auto) Lymph # (Auto) [place] # (Auto) Eos # (Auto) Baso # (Auto) Abs Immat Gran (auto) Absolute Neuts (auto) Absolute Nucleated RBC Nucleated RBC % (auto) VBG pH VBG pCO2 VBG pO2 VBG HCO3 VBG O2 Saturation VBG Base Excess Anion Gap Estim Creat Clear Calc Estimated GFR Random Glucose Osmolality 255 L Lactic Acid Calcium Magnesium Total Bilirubin Direct Bilirubin AST ALT Alkaline Phosphatase Total Protein Albumin Urine Color YELLOW Urine Appearance CLEAR Urine pH 6.5 Ur Specific [place] <= 1.005 Urine Protein TRACE Urine Glucose (UA) NEG Urine Ketones 40 Urine Blood NEG Urine Nitrite NEG Ur Leukocyte Esterase NEG Urine Osmolality Ur Random Sodium Ur Random Potassium Ur Random Chloride Ur Random Uric Acid Urine Creatinine Salicylates Urine Opiates Screen Urine Fentanyl Screen Acetaminophen Ur Barbiturates Screen Ur Phencyclidine Scrn Ur Amphetamines Screen U Benzodiazepines Scrn Urine Cocaine Screen U Marijuana (THC) Screen Ethyl Alcohol Acetone, Qual Negative COVID-19 ([facility]) COVID-19 [employer] 05/15/21 05/15/21 05/15/21 20:31 20:37 21:59 MCV MCH MCHC RDW Plt Count MPV Immature Gran % (Auto) Neut % (Auto) Lymph % (Auto) [place] % (Auto) Eos % (Auto) Baso % (Auto) Lymph # (Auto) [place] # (Auto) Eos # (Auto) Baso # (Auto) Abs Immat Gran (auto) Absolute Neuts (auto) Absolute Nucleated RBC Nucleated RBC % (auto) VBG pH 7.44 H VBG pCO2 19 VBG pO2 43 VBG HCO3 13 L VBG O2 Saturation 76.0 VBG Base Excess -7.6 Anion Gap 14 Estim Creat Clear Calc 83.6 Estimated GFR > 60 Random Glucose 159 H D Osmolality Lactic Acid 1.2 Calcium 8.4 D Magnesium Total Bilirubin Direct Bilirubin AST ALT Alkaline Phosphatase Total Protein Albumin Urine Color Urine Appearance Urine pH Ur Specific [place] Urine Protein Urine Glucose (UA) Urine Ketones Urine Blood Urine Nitrite Ur Leukocyte Esterase Urine Osmolality Ur Random Sodium Ur Random Potassium Ur Random Chloride Ur Random Uric Acid Urine Creatinine Salicylates Urine Opiates Screen Urine Fentanyl Screen Acetaminophen Ur Barbiturates Screen Ur Phencyclidine Scrn Ur Amphetamines Screen U Benzodiazepines Scrn Urine Cocaine Screen U Marijuana (THC) Screen Ethyl Alcohol Acetone, Qual COVID-19 ([facility]) COVID-19 [employer] ECG Interpretation: Sinus tachycardia Assessment and Plan (1) Acute hyponatremia: Status: Acute (2) Suicidal thoughts: Status: Acute (3) Acute hypokalemia: Status: Acute (4) Alcohol abuse: Status: Acute 46-year-old female with past medical history of hypertension, presents the hospital of to her attempting suicide found to have hyponatremia # acute hyponatremia - most likely hypovolemic hyponatremia - has low serum osmolality, increased urine osmolality, and sodium urine less than 20 - hemodynamically and neurologically stable - received 2 L of LR per Nephrology recommendation - will start her on NS 100 cc/an hour - follow BMP q.6 hours - nephrology consult # suicidal ideation - crisis consult - patient 1 on 1 - pH evaluation # acute hyperkalemia - repleted - follow BMP # alcohol abuse and withdrawal - patient with a CIWA of 10 - will start on phenobarb - thiamine and folic acid DVT prophylaxis: lovenox Quality Stroke Does the patient have a stroke diagnosis?: No VTE Prior VTE?: No VTE Risk Level:: Medical - moderate - high VTE Device Contraindication: Treatment Not Indicated VTE Drug Contraindication: N/A - Med Ordered
[2021-05-16] MEDS: 0.9 % Sodium Chloride Flush 3 ML SYRINGE IVFLUSH ×3 (07:41→20:14)
[2021-05-16] MEDS: 0.9 % Sodium Chloride 1,000 ML 80 ML IVCONT (07:41)
--- NOTE | 2021-05-16 07:43 | P.CONNP_ITS ---
History of Present Illness Reason for Consult Consult date: 05/16/21 Reason for consult: low na and K Chief Complaint Chief complaint: Hyponatremia History of Present Illness Narrative: 46-year-old female with a past medical history of hypertension, GERD, hyperlipidemia and alcohol abuse who presents to the hospital after the hotel she was residing on called the police for wellness check.? Patient reports that she had locked herself in a hotel for the past month drinking heavily about 1 L of vodka daily as well as beer, due to a break-up with her fiance due to her history of alcohol abuse Review of Systems Review of Systems Yes all other systems are reviewed and are negative Constitutional: Reports no additional constitutional complaints, Denies body ache(s), Denies chills, Denies fever(s), Denies headache(s) and Denies weakness Eyes: Reports no additional eye complaints and Denies change in vision Reports system reviewed and no additional complaints, except as documented, Denies dizziness, Denies headache(s), Denies nasal congestion, Denies nasal discharge and Denies neck pain Cardiovascular: Reports no additional cardiovascular complaints, Denies chest pain, Denies leg edema and Denies dyspnea Respiratory: Reports no additional respiratory complaints, Denies cough and Denies dyspnea Gastrointestinal: Reports no additional gastrointestinal complaints, Denies abdominal pain, Denies diarrhea, Denies nausea and Denies vomiting Musculoskeletal: Reports no additional musculoskeletal complaints, Denies back pain, Denies arthralgias, Denies joint swelling, Denies neck pain, Denies numbness and Denies tingling Skin/Breast: Reports system reviewed and no additional complaints, except as docu and Denies rash Reports system reviewed and no additional complaints, except as documented, Denies Abnormal speech present, Denies dizziness, Denies headache(s), Denies num bness, Denies tingling and Denies weakness Psychiatric: Denies anxiety, Reports depression, Denies homicidal ideation and Reports suicidal ideation [facility] Past Medical History Medical History Alcohol abuse GERD (gastroesophageal reflux disease) Hyperlipidemia Hypertension Social History Social History Household Members: Spouse Household Members Other:: Fiance Housing: House Do you presently have visiting nurse or other home services: No Alcohol intake: current Patient Tobacco Use Status: Current everyday Tobacco user Tobacco use type: Cigarette Cigarettes Per Day: 8 Years Smoked: 36 Patient Interested in Nicotine Replacement: No Patient Given Instructions on How to Stop Smoking: Yes Date Education Initiated: 05/16/21 Second Hand Smoke Exposure: No Use of substances other than those prescribed or required for medical reasons: Yes Substance Use Type: Marijuana Substance Use Frequency: Occasionally Currently Displaying Signs/Symptoms of Drug Intoxication Withdrawal: No Any prior treatment program specific to substance use: No Have you been hit, kicked, punched, or otherwise hurt by someone within the past year? If so, by whom?: No Do you feel safe in your current relationship?: Yes Is there a partner from a previous relationship who is making you feel unsafe now?: No Are you made to feel afraid or neglected: No Advance Directives: No Advance Directives Information Provided: No Do you have thoughts of harming others: None Do you have a plan to hurt others: No Plan Recently lost weight without trying: Unsure How much weight loss: Unsure Eating poorly because of decreased appetite: Yes Nutrition screen score: 5 Nutrition Risks: Poor intake 0-25% >4 days Patient : No : No Poor oral hygiene: No service: No Current occupational status: unemployed Meds Allergies Allergy/AdvReac Type Severity Reaction Status Date / Time No Known Allergies Allergy Verified 05/15/21 17:28 Active Medications: Current Medications Generic Name Dose Route Start Last Admin Trade Name Freq PRN Reason Stop Dose Admin Acetaminophen 650 mg 05/15/21 21:36 Acetaminophen 325 Mg Tablet PO Q6H PRN Pain, Mild (Pain Scale 1-3) Amlodipine Besylate 5 mg 05/16/21 09:00 Amlodipine Besylate 5 Mg Tablet PO DAILY [facility] Protocol Docusate Sodium 100 mg 05/15/21 21:36 Docusate Sodium 100 Mg Capsule PO DAILY PRN Constipation Enoxaparin Sodium 40 mg 05/15/21 22:00 05/15/21 22:17 Enoxaparin Sodium 40 Mg/0.4 Ml Syringe SUBCUT 40 mg Q24H PERLITA Administration Folic Acid 1 mg 05/16/21 09:00 Folic Acid 1 Mg Tablet PO DAILY [facility] Sodium Chloride 1,000 mls @ 80 mls/hr 05/16/21 07:00 05/16/21 07:41 Ns IVCONT 80 mls/hr .[id number] [facility] Administration Medication 1 each 05/16/21 09:00 No Benzodiazepines MISCELLANE DAILY [facility] Omeprazole 20 mg 05/16/21 09:00 Omeprazole 20 Mg Capsule.Dr PO DAILY [facility] Ondansetron HCl 4 mg 05/15/21 21:36 05/16/21 02:30 Ondansetron Hcl 4 Mg/2 Ml Vial IVPUSH 4 mg Q8H PRN Administration Nausea and Vomiting Oxycodone HCl 5 mg 05/15/21 21:36 05/16/21 02:30 Oxycodone Hcl Immed Release 5 Mg Tablet PO 5 mg Q6H PRN Administration Pain, Severe (Pain Scale 7-10) Pharmacy Consult 1 each 05/15/21 17:46 Consult Rx Perform Med Rec MISCELLANE ONCE PRN Consult order Pharmacy Consult 1 each 05/15/21 20:19 Consult Rx Perform Med Rec MISCELLANE ONCE PRN Consult order Phenobarbital 45 mg 05/16/21 09:00 Phenobarbital 15 Mg Tablet PO 05/17/21 21:01 BID [facility] Phenobarbital 30 mg 05/18/21 09:00 Phenobarbital 30 Mg Tablet PO 05/19/21 21:01 BID [facility] Phenobarbital 15 mg 05/20/21 09:00 Phenobarbital 15 Mg Tablet PO 05/21/21 09:01 DAILY [facility] Pravastatin Sodium 10 mg 05/16/21 09:00 Pravastatin Sodium 10 Mg Tablet PO DAILY [facility] Sodium Chloride 3 ml 05/16/21 00:00 05/16/21 07:41 0.9 % Sodium Chloride Flush 3 Ml Syringe IVFLUSH 3 ml QSHIFT [facility] Administration Thiamine HCl 100 mg 05/16/21 09:00 Thiamine Hcl 100 Mg Tablet PO DAILY [facility] Home Medications Medication Instructions Recorded Confirmed Last Taken Type amlodipine 5 mg tablet 5 mg PO DAILY 05/15/21 05/15/21 Unknown History pantoprazole 40 mg tablet,delayed 40 mg PO DAILY 05/15/21 05/15/21 Unknown History release pravastatin 10 mg tablet 10 mg PO DAILY 05/15/21 05/15/21 Unknown History Physical Exam Vital Signs: Last Vital Signs Temp 98.3 F 05/16/21 07:27 Pulse 93 05/16/21 07:27 Resp 12 05/16/21 07:27 BP 82/58 L 05/16/21 07:27 Pulse Ox 100 05/16/21 07:27 Body Mass Index 24.0 Const General: cooperative, healthy appearing, comfortable and no acute distress Orientation/consciousness: patient oriented x3 Limitations: no limitations HENMT Head: Yes normal to inspection Ears: hearing grossly normal bilaterally General nose exam: Normal external nose present Face and sinus: Yes normal facial exam Mouth: Normal oral and palatal mucosa present Throat: Yes posterior oropharynx normal Eyes General: appearance normal, both eyes and all related structures Pupils: Equal, round and reactive pupils present Neck Neck: Yes normal visual inspection Chest Chest palpation & inspection: normal inspection of the chest Resp Effort & Inspection: normal respiratory effort and able to speak in complete sentences Auscultation: clear to auscultation bilaterally Cardio Rate: regular rate Rhythm: regular rhythm Peripheral pulses: Peripheral pulses 2+ throughout GI Inspection: Yes normal to inspection Palpation (GI): Soft to palpation and nontender Auscultation: normal bowel sounds Back/Spine/Pelvis Thoracic/Lumbar Spine: thoracic and lumbar spine normal to inspection Skin Other: Has a small laceration on the right wrist General skin exam: no rashes or lesions noted Neuro Other: No neurological deficits General: patient oriented x3, no focal motor deficits and normal sensation to monofilament Cranial nerves: Yes CN's II-XII intact bilaterally and Yes Equal, round and reactive pupils present Cognition (Neuro): normal cognition Speech: No Abnormal speech present Gait exam (Neuro): Normal gait present Motor exam (neuro): 5/5 motor strength present throughout Extrem Other: To the right volar wrist there is a 3cm laceration. bleeding controlled General: Yes normal to inspection and Yes no pedal edema Psych Other: flat affect Appearance: disheveled Results Lab Results Result Diagrams: 05/16/21 05:37 05/15/21 21:59 Lab results: Chemistry 05/15/21 05/15/21 18:17 21:59 Sodium 122 L 123 L Potassium 2.8 L 3.2 L Carbon Dioxide 16 L 18 L BUN 21 H 17 H Creatinine 0.80 0.71 Calcium 9.9 8.4 D Hematology 05/15/21 05/16/21 18:17 05:37 WBC 7.9 8.1 Hgb 12.5 9.9 L D Plt Count 176 189 Urinalysis 05/15/21 20:24 Urine Color YELLOW Urine Appearance CLEAR Urine pH 6.5 Ur Specific [place] <= 1.005 Urine Protein TRACE Urine Glucose (UA) NEG Urine Ketones 40 Urine Blood NEG Urine Nitrite NEG Ur Leukocyte Esterase NEG Urine Studies 05/15/21 05/15/21 20:23 20:23 Urine Osmolality 365 L Urine Creatinine 128.88 Assessment and Plan (1) Acute hyponatremia: Status: Acute beer potomania low urine na replace with NS and aggressive IV kcl (2) Suicidal thoughts: Status: Acute (3) Acute hypokalemia: Status: Acute as above (4) Alcohol abuse: Status: Acute 46-year-old female with past medical history of hypertension, presents the hospital of to her attempting suicide found to have hyponatremia # acute hyponatremia - most likely hypovolemic hyponatremia - has low serum osmolality, increased urine osmolality, and sodium urine less than 20 - hemodynamically and neurologically stable - received 2 L of LR per Nephrology recommendation - will start her on NS 100 cc/an hour - follow BMP q.6 hours - nephrology consult # suicidal ideation - crisis consult - patient 1 on 1 - pH evaluation # acute hyperkalemia - repleted - follow BMP # alcohol abuse and withdrawal - patient with a CIWA of 10 - will start on phenobarb - thiamine and folic acid DVT prophylaxis: lovenox Procedures Date of Service Date of Service: 05/16/21
[2021-05-16] MEDS: PHENobarbitaL 15 MG TABLET 45 MG PO ×2 (08:12→20:13)
[2021-05-16] MEDS: Thiamine HCL 100 MG TABLET PO (08:12)
[2021-05-16] MEDS: Pravastatin Sodium 10 MG TABLET PO (08:12)
[2021-05-16] MEDS: Folic Acid 1 MG TABLET PO (08:12)
[2021-05-16] MEDS: Omeprazole 20 MG CAPSULE.DR PO (08:12)
[2021-05-16] MEDS: Midodrine HCl 5 MG TABLET PO ×4 (11:34→20:13)
--- NOTE | 2021-05-16 13:14 | P.PNIM_ITS ---
Subjective Subjective Date of Service: 05/16/21 Interval History: the patient was seen and evaluated this morning Laying in bed, feels little better today Still reporting feeling suicidal Feeling weak, sodium level improving Denies any fever, chills or shortness of breath No reported other overnight events. Systemic review: No fever, chills but reporting weakness No chest pain, palpitation No shortness of breath or coughing No abdominal pain, nausea or vomiting No urinary symptoms No any rash or wounds Physical Exam Vital Signs: Vital Signs: Last Vital Signs Temp 97.4 F 05/16/21 11:01 Pulse 93 05/16/21 11:34 Resp 20 05/16/21 11:01 BP 110/50 L 05/16/21 12:22 Pulse Ox 100 05/16/21 11:01 Body Mass Index 24.0 Const: Other: Constitutional : Alert, oriented, not in distress Neck : Normal inspection, Supple Cardiovascular : RRR, S1 S2, no lower extremity edema Respiratory : Good bilateral air entry, no crackles, wheezes or rhonchi Gastrointestinal: soft, lax, Normal bowel sounds, Non tender Skin : Warm, Dry, large wound on her right wrist Neurological : Alert & oriented x3, No focal deficit the Objective Data Current Medications Generic Name Dose Route Start Last Admin Trade Name Freq PRN Reason Stop Dose Admin Acetaminophen 650 mg 05/15/21 21:36 Acetaminophen 325 Mg Tablet PO Q6H PRN Pain, Mild (Pain Scale 1-3) Docusate Sodium 100 mg 05/15/21 21:36 Docusate Sodium 100 Mg Capsule PO DAILY PRN Constipation Enoxaparin Sodium 40 mg 05/15/21 22:00 05/15/21 22:17 Enoxaparin Sodium 40 Mg/0.4 Ml Syringe SUBCUT 40 mg Q24H PERLITA Administration Folic Acid 1 mg 05/16/21 09:00 05/16/21 08:12 Folic Acid 1 Mg Tablet PO 1 mg DAILY PERLITA Administration Sodium Chloride 1,000 mls @ 100 mls/hr 05/16/21 07:00 05/16/21 11:32 Ns IVCONT 100 mls/hr .Q10H PERLITA Infusion Medication 1 each 05/16/21 09:00 No Benzodiazepines MISCELLANE DAILY PERLITA Midodrine 5 mg 05/16/21 11:25 05/16/21 11:34 Midodrine Hcl 5 Mg Tablet PO 5 mg TID PERLITA Administration Omeprazole 20 mg 05/16/21 09:00 05/16/21 08:12 Omeprazole 20 Mg Capsule.Dr PO 20 mg DAILY PERLITA Administration Ondansetron HCl 4 mg 05/15/21 21:36 05/16/21 02:30 Ondansetron Hcl 4 Mg/2 Ml Vial IVPUSH 4 mg Q8H PRN Administration Nausea and Vomiting Oxycodone HCl 5 mg 05/15/21 21:36 05/16/21 09:16 Oxycodone Hcl Immed Release 5 Mg Tablet PO 5 mg Q6H PRN Administration Pain, Severe (Pain Scale 7-10) Pharmacy Consult 1 each 05/15/21 17:46 Consult Rx Perform Med Rec MISCELLANE ONCE PRN Consult order Pharmacy Consult 1 each 05/15/21 20:19 Consult Rx Perform Med Rec MISCELLANE ONCE PRN Consult order Phenobarbital 45 mg 05/16/21 09:00 05/16/21 08:12 Phenobarbital 15 Mg Tablet PO 05/17/21 21:01 45 mg BID PERLITA Administration Phenobarbital 30 mg 05/18/21 09:00 Phenobarbital 30 Mg Tablet PO 05/19/21 21:01 BID PERLITA Phenobarbital 15 mg 05/20/21 09:00 Phenobarbital 15 Mg Tablet PO 05/21/21 09:01 DAILY PERLITA Pravastatin Sodium 10 mg 05/16/21 09:00 05/16/21 08:12 Pravastatin Sodium 10 Mg Tablet PO 10 mg DAILY PERLITA Administration Sodium Chloride 3 ml 05/16/21 00:00 05/16/21 07:41 0.9 % Sodium Chloride Flush 3 Ml Syringe IVFLUSH 3 ml QSHIFT [facility] Administration Thiamine HCl 100 mg 05/16/21 09:00 05/16/21 08:12 Thiamine Hcl 100 Mg Tablet PO 100 mg DAILY PERLITA Administration Labs CBC & Chem 7: 05/16/21 05:37 05/15/21 21:59 Labs: Laboratory Results - last 24 hr 05/15/21 05/15/21 05/15/21 17:54 17:54 18:16 MCV MCH MCHC RDW Plt Count MPV Immature Gran % (Auto) Neut % (Auto) Lymph % (Auto) [place] % (Auto) Eos % (Auto) Baso % (Auto) Lymph # (Auto) [place] # (Auto) Eos # (Auto) Baso # (Auto) Abs Immat Gran (auto) Absolute Neuts (auto) Absolute Nucleated RBC Nucleated RBC % (auto) VBG pH VBG pCO2 VBG pO2 VBG HCO3 VBG O2 Saturation VBG Base Excess Anion Gap Estim Creat Clear Calc Estimated GFR Random Glucose Osmolality Lactic Acid Calcium Magnesium Total Bilirubin Direct Bilirubin AST ALT Alkaline Phosphatase Total Protein Albumin Urine Color Urine Appearance Urine pH Ur Specific [place] Urine Protein Urine Glucose (UA) Urine Ketones Urine Blood Urine Nitrite Ur Leukocyte Esterase Urine Osmolality Ur Random Sodium Ur Random Potassium Ur Random Chloride Ur Random Uric Acid Urine Creatinine Salicylates Urine Opiates Screen Not Detected Urine Fentanyl Screen Not Detected Acetaminophen Ur Barbiturates Screen Not Detected Ur Phencyclidine Scrn Not Detected Ur Amphetamines Screen Not Detected U Benzodiazepines Scrn Not Detected Urine Cocaine Screen Not Detected U Marijuana (THC) Screen POSITIVE H Ethyl Alcohol < 10 Acetone, Qual COVID-19 ([facility]HELBIE) Negative COVID-19 Clin Com See Note 05/15/21 05/15/21 05/15/21 18:17 18:17 18:17 MCV 90.3 MCH 33.7 H MCHC 37.3 H RDW 13.2 Plt Count 176 MPV 10.9 Immature Gran % (Auto) 0.8 H Neut % (Auto) 69.3 Lymph % (Auto) 15.6 L [place] % (Auto) 13.6 H Eos % (Auto) 0.6 Baso % (Auto) 0.1 Lymph # (Auto) 1.2 [place] # (Auto) 1.1 Eos # (Auto) 0.1 Baso # (Auto) 0.0 Abs Immat Gran (auto) 0.06 H Absolute Neuts (auto) 5.5 Absolute Nucleated RBC 0.000 Nucleated RBC % (auto) 0.0 VBG pH VBG pCO2 VBG pO2 VBG HCO3 VBG O2 Saturation VBG Base Excess Anion Gap 21 H Estim Creat Clear Calc 74.2 Estimated GFR > 60 Random Glucose 113 Osmolality Lactic Acid Calcium 9.9 Magnesium 2.2 Total Bilirubin 0.8 Direct Bilirubin 0.3 AST 38 H ALT 17 Alkaline Phosphatase 85 Total Protein 7.4 Albumin 4.7 Urine Color Urine Appearance Urine pH Ur Specific [place] Urine Protein Urine Glucose (UA) Urine Ketones Urine Blood Urine Nitrite Ur Leukocyte Esterase Urine Osmolality Ur Random Sodium Ur Random Potassium Ur Random Chloride Ur Random Uric Acid Urine Creatinine Salicylates < 5.0 L Urine Opiates Screen Urine Fentanyl Screen Acetaminophen < 1 Ur Barbiturates Screen Ur Phencyclidine Scrn Ur Amphetamines Screen U Benzodiazepines Scrn Urine Cocaine Screen U Marijuana (THC) Screen Ethyl Alcohol Acetone, Qual COVID-19 ([facility]E) COVID-19 [employer] 05/15/21 05/15/21 05/15/21 20:23 20:23 20:23 MCV MCH MCHC RDW Plt Count MPV Immature Gran % (Auto) Neut % (Auto) Lymph % (Auto) [place] % (Auto) Eos % (Auto) Baso % (Auto) Lymph # (Auto) [place] # (Auto) Eos # (Auto) Baso # (Auto) Abs Immat Gran (auto) Absolute Neuts (auto) Absolute Nucleated RBC Nucleated RBC % (auto) VBG pH VBG pCO2 VBG pO2 VBG HCO3 VBG O2 Saturation VBG Base Excess Anion Gap Estim Creat Clear Calc Estimated GFR Random Glucose Osmolality Lactic Acid Calcium Magnesium Total Bilirubin Direct Bilirubin AST ALT Alkaline Phosphatase Total Protein Albumin Urine Color Urine Appearance Urine pH Ur Specific [place] Urine Protein Urine Glucose (UA) Urine Ketones Urine Blood Urine Nitrite Ur Leukocyte Esterase Urine Osmolality 365 L Ur Random Sodium < 20.0 Ur Random Potassium 5.6 Ur Random Chloride < 20.0 Ur Random Uric Acid 46.2 Urine Creatinine 128.88 Salicylates Urine Opiates Screen Urine Fentanyl Screen Acetaminophen Ur Barbiturates Screen Ur Phencyclidine Scrn Ur Amphetamines Screen U Benzodiazepines Scrn Urine Cocaine Screen U Marijuana (THC) Screen Ethyl Alcohol Acetone, Qual COVID-19 ([facility]E) COVID-19 [employer] 05/15/21 05/15/21 05/15/21 20:24 20:31 20:31 MCV MCH MCHC RDW Plt Count MPV Immature Gran % (Auto) Neut % (Auto) Lymph % (Auto) [place] % (Auto) Eos % (Auto) Baso % (Auto) Lymph # (Auto) [place] # (Auto) Eos # (Auto) Baso # (Auto) Abs Immat Gran (auto) Absolute Neuts (auto) Absolute Nucleated RBC Nucleated RBC % (auto) VBG pH VBG pCO2 VBG pO2 VBG HCO3 VBG O2 Saturation VBG Base Excess Anion Gap Estim Creat Clear Calc Estimated GFR Random Glucose Osmolality 255 L Lactic Acid Calcium Magnesium Total Bilirubin Direct Bilirubin AST ALT Alkaline Phosphatase Total Protein Albumin Urine Color YELLOW Urine Appearance CLEAR Urine pH 6.5 Ur Specific [place] <= 1.005 Urine Protein TRACE Urine Glucose (UA) NEG Urine Ketones 40 Urine Blood NEG Urine Nitrite NEG Ur Leukocyte Esterase NEG Urine Osmolality Ur Random Sodium Ur Random Potassium Ur Random Chloride Ur Random Uric Acid Urine Creatinine Salicylates Urine Opiates Screen Urine Fentanyl Screen Acetaminophen Ur Barbiturates Screen Ur Phencyclidine Scrn Ur Amphetamines Screen U Benzodiazepines Scrn Urine Cocaine Screen U Marijuana (THC) Screen Ethyl Alcohol Acetone, Qual Negative COVID-19 ([facility]E) COVID-19 [employer] 05/15/21 05/15/21 05/15/21 20:31 20:37 21:59 MCV MCH MCHC RDW Plt Count MPV Immature Gran % (Auto) Neut % (Auto) Lymph % (Auto) [place] % (Auto) Eos % (Auto) Baso % (Auto) Lymph # (Auto) [place] # (Auto) Eos # (Auto) Baso # (Auto) Abs Immat Gran (auto) Absolute Neuts (auto) Absolute Nucleated RBC Nucleated RBC % (auto) VBG pH 7.44 H VBG pCO2 19 VBG pO2 43 VBG HCO3 13 L VBG O2 Saturation 76.0 VBG Base Excess -7.6 Anion Gap 14 Estim Creat Clear Calc 83.6 Estimated GFR > 60 Random Glucose 159 H D Osmolality Lactic Acid 1.2 Calcium 8.4 D Magnesium Total Bilirubin Direct Bilirubin AST ALT Alkaline Phosphatase Total Protein Albumin Urine Color Urine Appearance Urine pH Ur Specific [place] Urine Protein Urine Glucose (UA) Urine Ketones Urine Blood Urine Nitrite Ur Leukocyte Esterase Urine Osmolality Ur Random Sodium Ur Random Potassium Ur Random Chloride Ur Random Uric Acid Urine Creatinine Salicylates Urine Opiates Screen Urine Fentanyl Screen Acetaminophen Ur Barbiturates Screen Ur Phencyclidine Scrn Ur Amphetamines Screen U Benzodiazepines Scrn Urine Cocaine Screen U Marijuana (THC) Screen Ethyl Alcohol Acetone, Qual COVID-19 ([facility]E) COVID-19 [employer] 05/16/21 05:37 MCV 92.6 MCH 33.3 H MCHC 36.0 H RDW 13.1 Plt Count 189 MPV 10.7 Immature Gran % (Auto) 1.2 H Neut % (Auto) 56.7 Lymph % (Auto) 24.4 [place] % (Auto) 15.9 H Eos % (Auto) 1.4 Baso % (Auto) 0.4 Lymph # (Auto) 2.0 [place] # (Auto) 1.3 H Eos # (Auto) 0.1 Baso # (Auto) 0.0 Abs Immat Gran (auto) 0.10 H Absolute Neuts (auto) 4.6 Absolute Nucleated RBC 0.000 Nucleated RBC % (auto) 0.0 VBG pH VBG pCO2 VBG pO2 VBG HCO3 VBG O2 Saturation VBG Base Excess Anion Gap Estim Creat Clear Calc Estimated GFR Random Glucose Osmolality Lactic Acid Calcium Magnesium Total Bilirubin Direct Bilirubin AST ALT Alkaline Phosphatase Total Protein Albumin Urine Color Urine Appearance Urine pH Ur Specific [place] Urine Protein Urine Glucose (UA) Urine Ketones Urine Blood Urine Nitrite Ur Leukocyte Esterase Urine Osmolality Ur Random Sodium Ur Random Potassium Ur Random Chloride Ur Random Uric Acid Urine Creatinine Salicylates Urine Opiates Screen Urine Fentanyl Screen Acetaminophen Ur Barbiturates Screen Ur Phencyclidine Scrn Ur Amphetamines Screen U Benzodiazepines Scrn Urine Cocaine Screen U Marijuana (THC) Screen Ethyl Alcohol Acetone, Qual COVID-19 ([facility]) COVID-19 Clin Com Assessment and Plan (1) Alcohol abuse: Status: Acute (2) Acute hyponatremia: Status: Acute (3) Suicidal thoughts: Status: Acute (4) Acute hypokalemia: Status: Acute (5) Suicide attempt: Status: Acute Assessment and Plan: 46-year-old female with past medical history of hypertension, presents the hospital of to her attempting suicide found to have hyponatremia # acute hyponatremia Secondary to possible Beer potomania, hypokalemia Sodium 123 Continue IVF follow BMP q.6 hours nephrology consult appreciated # suicidal ideation # forearm wound crisis consult patient 1 on 1 To get surgical evaluation of the wound # acute hypokalemia Give supplement follow BMP # alcohol abuse and withdrawal CIWA on phenobarb thiamine and folic acid DVT prophylaxis lovenox Quality Stroke Does the patient have a stroke diagnosis?: No VTE Prior VTE?: No VTE Risk Level:: Medical - moderate - high VTE Device Contraindication: Treatment Not Indicated VTE Drug Contraindication: N/A - Med Ordered
[2021-05-16 15:41] LABS: Anion Gap 12 (12-20); Blood Urea Nitrogen 9 mg/dL (9-16); Calcium 8.1 mg/dL (8.4-10.2); Carbon Dioxide 17 mmol/L (22-29); Chloride 100 mmol/L (96-108); Creatinine Clr Calc Pharmacy 97.3; Estimated Glomerular Filt Rate > 60; Glucose Random 124 mg/dL (60-115); Potassium 4.5 mmol/L (3.3-5.1); Sodium 124 mmol/L (135-145)
[2021-05-16] MEDS: 0.9 % Sodium Chloride 500 ML IV (16:34)
--- NOTE | 2021-05-16 16:57 | P.CONGS_ITS ---
History of Present Illness Consult details Consult date: 05/16/21 Reason for consult: wound care Narrative: This is a 46-year-old female who presented to the emergency room yesterday for evaluation of suicidal ideation and heavy alcohol use. She attempted suicide by cutting her right forearm 3 days ago. In the emergency department,She was noted to have a sodium of 122 and a potassium of 2.8. She was admitted to the medical service for management of hyponatremia, hypokalemia, alcohol abuse and suicidal ideation. General surgery is asked to evaluate the wound on her right forearm, which was not sutured in the emergency room because of the length of time that had elapsed between the occurrence and evaluation in the emergency department. She reports tenderness in the area of the injury and difficulty closing her hand fully because of pain in the area of the laceration. She does not report fever or chills. She reports increasing difficulty with depression and alcohol use as well as concern regarding her daughter's health. Her daughter lives in [place] and was recently diagnosed with glaucoma. Review of Systems Constitutional: Constitutional: Denies chills and Denies fever(s) ENT: Denies dizziness Gastrointestinal: Gastrointestinal: Denies melena and Denies hematochezia Musculoskeletal: Musculoskeletal: Reports as per HPI Neurologic: Denies dizziness PMFSH Past Medical History Medical History Alcohol abuse GERD (gastroesophageal reflux disease) Hyperlipidemia Hypertension Family History Pertinent family history: Daughter-glaucoma Social History Social History Household Members: Spouse Household Members Other:: Fiance Housing: House Do you presently have visiting nurse or other home services: No Alcohol intake: current Patient Tobacco Use Status: Current everyday Tobacco user Tobacco use type: Cigarette Cigarettes Per Day: 8 Years Smoked: 36 Patient Interested in Nicotine Replacement: No Patient Given Instructions on How to Stop Smoking: Yes Date Education Initiated: 05/16/21 Second Hand Smoke Exposure: No Use of substances other than those prescribed or required for medical reasons: Yes Substance Use Type: Marijuana Substance Use Frequency: Occasionally Currently Displaying Signs/Symptoms of Drug Intoxication Withdrawal: No Any prior treatment program specific to substance use: No Have you been hit, kicked, punched, or otherwise hurt by someone within the past year? If so, by whom?: No Do you feel safe in your current relationship?: Yes Is there a partner from a previous relationship who is making you feel unsafe now?: No Are you made to feel afraid or neglected: No Advance Directives: No Advance Directives Information Provided: No Do you have thoughts of harming others: None Do you have a plan to hurt others: No Plan Recently lost weight without trying: Unsure How much weight loss: Unsure Eating poorly because of decreased appetite: Yes Nutrition screen score: 5 Nutrition Risks: Poor intake 0-25% >4 days Patient : No : No Poor oral hygiene: No service: No Current occupational status: unemployed Meds Allergies Allergy/AdvReac Type Severity Reaction Status Date / Time No Known Allergies Allergy Verified 05/15/21 17:28 Active Medications: Current Medications Generic Name Dose Route Start Last Admin Trade Name Freq PRN Reason Stop Dose Admin Acetaminophen 650 mg 05/15/21 21:36 Acetaminophen 325 Mg Tablet PO Q6H PRN Pain, Mild (Pain Scale 1-3) Docusate Sodium 100 mg 05/15/21 21:36 Docusate Sodium 100 Mg Capsule PO DAILY PRN Constipation Enoxaparin Sodium 40 mg 05/15/21 22:00 05/15/21 22:17 Enoxaparin Sodium 40 Mg/0.4 Ml Syringe SUBCUT 40 mg Q24H PERLITA Administration Folic Acid 1 mg 05/16/21 09:00 05/16/21 08:12 Folic Acid 1 Mg Tablet PO 1 mg DAILY PERLITA Administration Sodium Chloride 1,000 mls @ 100 mls/hr 05/16/21 07:00 05/16/21 16:35 Ns IVCONT 0 mls/hr .Q10H PERLITA Infusion Sodium Chloride 500 mls @ 500 mls/hr 05/16/21 16:15 05/16/21 16:34 Ns IV 05/16/21 17:14 500 mls/hr .Q1H PERLITA Administration Medication 1 each 05/16/21 09:00 No Benzodiazepines MISCELLANE DAILY PERLITA Midodrine 5 mg 05/16/21 11:25 05/16/21 14:06 Midodrine Hcl 5 Mg Tablet PO 5 mg TID PERLITA Administration Omeprazole 20 mg 05/16/21 09:00 05/16/21 08:12 Omeprazole 20 Mg Capsule.Dr PO 20 mg DAILY PERLITA Administration Ondansetron HCl 4 mg 05/15/21 21:36 05/16/21 02:30 Ondansetron Hcl 4 Mg/2 Ml Vial IVPUSH 4 mg Q8H PRN Administration Nausea and Vomiting Oxycodone HCl 5 mg 05/15/21 21:36 05/16/21 09:16 Oxycodone Hcl Immed Release 5 Mg Tablet PO 5 mg Q6H PRN Administration Pain, Severe (Pain Scale 7-10) Pharmacy Consult 1 each 05/15/21 17:46 Consult Rx Perform Med Rec MISCELLANE ONCE PRN Consult order Pharmacy Consult 1 each 05/15/21 20:19 Consult Rx Perform Med Rec MISCELLANE ONCE PRN Consult order Phenobarbital 45 mg 05/16/21 09:00 05/16/21 08:12 Phenobarbital 15 Mg Tablet PO 05/17/21 21:01 45 mg BID PERLITA Administration Phenobarbital 30 mg 05/18/21 09:00 Phenobarbital 30 Mg Tablet PO 05/19/21 21:01 BID PERLITA Phenobarbital 15 mg 05/20/21 09:00 Phenobarbital 15 Mg Tablet PO 05/21/21 09:01 DAILY PERLITA Pravastatin Sodium 10 mg 05/16/21 09:00 05/16/21 08:12 Pravastatin Sodium 10 Mg Tablet PO 10 mg DAILY PERLITA Administration Sodium Chloride 3 ml 05/16/21 00:00 05/16/21 16:35 0.9 % Sodium Chloride Flush 3 Ml Syringe IVFLUSH 3 ml QSHIFT PERLITA Administration Thiamine HCl 100 mg 05/16/21 09:00 05/16/21 08:12 Thiamine Hcl 100 Mg Tablet PO 100 mg DAILY PERLITA Administration Home Medications Medication Instructions Recorded Confirmed Last Taken Type amlodipine 5 mg tablet 5 mg PO DAILY 05/15/21 05/15/21 Unknown History pantoprazole 40 mg tablet,delayed 40 mg PO DAILY 05/15/21 05/15/21 Unknown History release pravastatin 10 mg tablet 10 mg PO DAILY 05/15/21 05/15/21 Unknown History Physical Exam Vital Signs: Vital Signs: Last Vital Signs Temp 98.1 F 05/16/21 15:49 Pulse 88 05/16/21 16:35 Resp 18 05/16/21 15:49 BP 84/50 L 05/16/21 16:35 Pulse Ox 100 05/16/21 15:49 Body Mass Index 24.0 Const: General: cooperative, no acute distress and alert HENMT: Head: Yes normocephalic and Yes atraumatic Eyes: Sclerae: sclerae normal EOM: EOMs intact bilaterally Skin: Other: Normal color, warm and dry Extrem: Other: Clean, slightly oblique laceration volar surface right distal forearm approximately 3 cm resulting in open wound 1 cm x 3 cm by 0.4 cm, exposed subcutaneous tissue is clean Results Labs Result diagrams: 05/16/21 05:37 05/16/21 14:48 Labs: Abnormal lab results 05/15/21 05/15/21 05/15/21 Range/Units 17:54 18:17 18:17 RBC 3.71 L (4.20-5.50) X10*6/uL Hgb (12.0-16.0) g/dl Hct 33.5 L (37-47) % MCH 33.7 H (27.0-33.0) pg MCHC 37.3 H (31.0-35.0) g/dl Immature Gran % (Auto) 0.8 H (0.0-0.4) % Lymph % (Auto) 15.6 L (20-40) % [place] % (Auto) 13.6 H (2-11) % [place] # (Auto) (0.1-1.2) X10*3/uL Abs Immat Gran (auto) 0.06 H (0.00-0.03) X10*3/uL VBG pH (7.32-7.43) VBG HCO3 (22-26) mmol/L Sodium 122 L (135-145) mmol/L Potassium 2.8 L (3.3-5.1) mmol/L Chloride 88 L (96-108) mmol/L Carbon Dioxide 16 L (22-29) mmol/L Anion Gap 21 H (12-20) BUN 21 H (9-16) mg/dL Random Glucose (60-115) mg/dL Osmolality (281-305) mosm/kg Calcium (8.4-10.2) mg/dL AST 38 H (5-31) U/L Urine Osmolality (373-1093) mosm/kg Salicylates (15-30) mg/dL U Marijuana (THC) Screen POSITIVE H (Not Detect) 05/15/21 05/15/21 05/15/21 Range/Units 18:17 20:23 20:31 RBC (4.20-5.50) X10*6/uL Hgb (12.0-16.0) g/dl Hct (37-47) % MCH (27.0-33.0) pg MCHC (31.0-35.0) g/dl Immature Gran % (Auto) (0.0-0.4) % Lymph % (Auto) (20-40) % [place] % (Auto) (2-11) % [place] # (Auto) (0.1-1.2) X10*3/uL Abs Immat Gran (auto) (0.00-0.03) X10*3/uL VBG pH (7.32-7.43) VBG HCO3 (22-26) mmol/L Sodium (135-145) mmol/L Potassium (3.3-5.1) mmol/L Chloride (96-108) mmol/L Carbon Dioxide (22-29) mmol/L Anion Gap (12-20) BUN (9-16) mg/dL Random Glucose (60-115) mg/dL Osmolality 255 L (281-305) mosm/kg Calcium (8.4-10.2) mg/dL AST (5-31) U/L Urine Osmolality 365 L (373-1093) mosm/kg Salicylates < 5.0 L (15-30) mg/dL U Marijuana (THC) Screen (Not Detect) 05/15/21 05/15/21 05/16/21 Range/Units 20:37 21:59 05:37 RBC 2.97 L (4.20-5.50) X10*6/uL Hgb 9.9 L D (12.0-16.0) g/dl Hct 27.5 L (37-47) % MCH 33.3 H (27.0-33.0) pg MCHC 36.0 H (31.0-35.0) g/dl Immature Gran % (Auto) 1.2 H (0.0-0.4) % Lymph % (Auto) (20-40) % [place] % (Auto) 15.9 H (2-11) % [place] # (Auto) 1.3 H (0.1-1.2) X10*3/uL Abs Immat Gran (auto) 0.10 H (0.00-0.03) X10*3/uL VBG pH 7.44 H (7.32-7.43) VBG HCO3 13 L (22-26) mmol/L Sodium 123 L (135-145) mmol/L Potassium 3.2 L (3.3-5.1) mmol/L Chloride 94 L (96-108) mmol/L Carbon Dioxide 18 L (22-29) mmol/L Anion Gap (12-20) BUN 17 H (9-16) mg/dL Random Glucose 159 H D (60-115) mg/dL Osmolality (281-305) mosm/kg Calcium (8.4-10.2) mg/dL AST (5-31) U/L Urine Osmolality (373-1093) mosm/kg Salicylates (15-30) mg/dL U Marijuana (THC) Screen (Not Detect) 05/16/21 Range/Units 14:48 RBC (4.20-5.50) X10*6/uL Hgb (12.0-16.0) g/dl Hct (37-47) % MCH (27.0-33.0) pg MCHC (31.0-35.0) g/dl Immature Gran % (Auto) (0.0-0.4) % Lymph % (Auto) (20-40) % [place] % (Auto) (2-11) % [place] # (Auto) (0.1-1.2) X10*3/uL Abs Immat Gran (auto) (0.00-0.03) X10*3/uL VBG pH (7.32-7.43) VBG HCO3 (22-26) mmol/L Sodium 124 L (135-145) mmol/L Potassium (3.3-5.1) mmol/L Chloride (96-108) mmol/L Carbon Dioxide 17 L (22-29) mmol/L Anion Gap (12-20) BUN (9-16) mg/dL Random Glucose 124 H (60-115) mg/dL Osmolality (281-305) mosm/kg Calcium 8.1 L (8.4-10.2) mg/dL AST (5-31) U/L Urine Osmolality (373-1093) mosm/kg Salicylates (15-30) mg/dL U Marijuana (THC) Screen (Not Detect) Short CBC 05/15/21 05/16/21 Range/Units 18:17 05:37 WBC 7.9 8.1 (4.8-10.8) X10*3/uL Hgb 12.5 9.9 L D (12.0-16.0) g/dl Hct 33.5 L 27.5 L (37-47) % Plt Count 176 189 (160-400) X10*3/uL BMP 05/15/21 05/15/21 05/16/21 18:17 21:59 14:48 Sodium 122 L 123 L 124 L Potassium 2.8 L 3.2 L 4.5 D Chloride 88 L 94 L 100 Carbon Dioxide 16 L 18 L 17 L BUN 21 H 17 H 9 Creatinine 0.80 0.71 0.61 Calcium 9.9 8.4 D 8.1 L Liver Function 05/15/21 Range/Units 18:17 Total Bilirubin 0.8 (0.0-1.0) mg/dL Direct Bilirubin 0.3 (0.0-0.5) mg/dL AST 38 H (5-31) U/L ALT 17 (0-31) U/L Alkaline Phosphatase 85 (39-117) U/L Albumin 4.7 (3.5-5.0) g/dL Urine 05/15/21 Range/Units 20:24 Urine Color YELLOW Urine Appearance CLEAR Urine pH 6.5 (5.0-8.0) Ur Specific [place] <= 1.005 (1.005-1.025) Urine Protein TRACE (NEG-TRACE) MG/DL Urine Glucose (UA) NEG (NEG) MG/DL All other labs normal. Assessment and Plan (1) Laceration of right forearm: Status: Acute She has a clean laceration of the volar aspect of the right distal forearm secondary to a suicide attempt. She did not seek medical attention initially and evaluation of the wound did not occur until approximately 48 hours after the injury. Primary closure is not appropriate due to the increased risk of infection. Dressing change, new Steri-Strips applied. Anticipate conversion to an alternate dressing type within next few days, likely silver alginate and DSD. Procedures Date of Service Date of Service: 05/16/21
[2021-05-16] MEDS: 0.9 % Sodium Chloride 1,000 ML 100 ML IVCONT (17:43)
[2021-05-16] MEDS: 0.9 % Sodium Chloride 1,000 ML 999 ML IV (18:25)
--- NOTE | 2021-05-16 18:36 | PC.NURSE ---
Patient's BP in the 80s systolic throughout the day; midodrine 5 mg given x 3, 500 mL of NS given, 1L bolus of NS currently running. Patient denies dizziness/lightheadedness, just feels tired. Hospitalist notified, to monitor, to contact if any further symptoms. Patient expressing SI, 1:[address] Laceration to right wrist covered with steri-strips, gauze pad, and wrapped with gauze. General surgery consulted. Will pass to oncoming RN.
[2021-05-16] MEDS: Enoxaparin Sodium 40 MG/0.4 ML SYRINGE SUBCUT (20:14)
[2021-05-16] MEDS: Acetaminophen 325 MG TABLET 650 MG PO (20:17)
[2021-05-17] VITALS (11 sets, daily range): BP systolic 82–101; BP diastolic 57–72; PULSE 88–100; RESP 16–20; TEMP 36.1–36.9; O2SAT 99–100
[2021-05-17] MEDS: 0.9 % Sodium Chloride 1,000 ML 999 ML IV
[2021-05-17] MEDS: 0.9 % Sodium Chloride 1,000 ML 100 ML IVCONT ×2 (06:06→20:05)
--- NOTE | 2021-05-17 08:21 | PM.PNNEP ---
Subjective Subjective Date of Service: 05/17/21 Interval history: the patient was seen and evaluated this morning Laying in bed, feels little better today Still reporting feeling suicidal Feeling weak, sodium level improving Denies any fever, chills or shortness of breath No reported other overnight events. Systemic review: No fever, chills but reporting weakness No chest pain, palpitation No shortness of breath or coughing No abdominal pain, nausea or vomiting No urinary symptoms No any rash or wounds Physical Exam Vital Signs: Vital Signs: Last Vital Signs Temp 98.5 F 05/17/21 07:32 Pulse 92 05/17/21 07:32 Resp 18 05/17/21 07:32 BP 90/64 05/17/21 07:32 Pulse Ox 100 05/17/21 07:32 Body Mass Index 24.0 Const: Other: Constitutional : Alert, oriented, not in distress Neck : Normal inspection, Supple Cardiovascular : RRR, S1 S2, no lower extremity edema Respiratory : Good bilateral air entry, no crackles, wheezes or rhonchi Gastrointestinal: soft, lax, Normal bowel sounds, Non tender Skin : Warm, Dry, large wound on her right wrist Neurological : Alert & oriented x3, No focal deficit the General: cooperative, healthy appearing, comfortable, no acute distress and alert Orientation/consciousness: patient oriented x3 Limitations: no limitations HENMT: Head: Yes normal to inspection, Yes normocephalic and Yes atraumatic Ears: hearing grossly normal bilaterally General nose exam: Normal external nose present Face and sinus: Yes normal facial exam Mouth: Normal oral and palatal mucosa present Throat: Yes posterior oropharynx normal Eyes: General: appearance normal, both eyes and all related structures Sclerae: sclerae normal Pupils: Equal, round and reactive pupils present EOM: EOMs intact bilaterally Neck: Neck: Yes normal visual inspection Chest: Chest palpation & inspection: normal inspection of the chest Resp: Effort & Inspection: normal respiratory effort and able to speak in complete sentences Auscultation: clear to auscultation bilaterally Cardio: Rate: regular rate Rhythm: regular rhythm Peripheral pulses: Peripheral pulses 2+ throughout GI: Inspection: Yes normal to inspection Palpation (GI): Soft to palpation and nontender Auscultation: normal bowel sounds Back/Spine/Pelvis: Thoracic/Lumbar Spine: thoracic and lumbar spine normal to inspection Skin: Other: Normal color, warm and dry General skin exam: no rashes or lesions noted Neuro: Other: No neurological deficits General: patient oriented x3, no focal motor deficits and normal sensation to monofilament Cranial nerves: Yes CN's II-XII intact bilaterally and Yes Equal, round and reactive pupils present Cognition (Neuro): normal cognition Speech: No Abnormal speech present Gait exam (Neuro): Normal gait present Motor exam (neuro): 5/5 motor strength present throughout Extrem: Other: Clean, slightly oblique laceration volar surface right distal forearm approximately 3 cm resulting in open wound 1 cm x 3 cm by 0.4 cm, exposed subcutaneous tissue is clean General: Yes normal to inspection and Yes no pedal edema Psych: Other: flat affect Appearance: disheveled Objective Data Labs CBC & Chem 7: 05/16/21 05:37 05/16/21 14:48 Labs: Laboratory Results - last 24 hr 05/16/21 14:48 Sodium 124 L Potassium 4.5 D Chloride 100 Carbon Dioxide 17 L Anion Gap 12 BUN 9 Creatinine 0.61 Estim Creat Clear Calc 97.3 Estimated GFR > 60 Random Glucose 124 H Calcium 8.1 L Microbiology Microbiology Results: Microbiology 05/15/21 20:31 Blood - Venous Blood Culture - Preliminary No growth after 24 hours. 05/15/21 20:31 Blood - Venous Blood Culture - Preliminary No growth after 24 hours. Procedures Date of Service Date of Service: 05/17/21 Assessment & Plan Assessment and plan (1) Acute hyponatremia: Status: Acute Assessment and Plan: persistent low na the urine na is low c/w pre-renal picture will repeat urine studies (2) Acute hypokalemia: Status: Acute Assessment and Plan: this has resolved with aggressive replacement Time Spent With Patient Time: Total time spent is greater than 50% in coordination of care (as documented) at patient's floor/unit and/or counseling patient: Progress Note: Quality Stroke Does the patient have a stroke diagnosis?: No
[2021-05-17] MEDS: Pravastatin Sodium 10 MG TABLET PO (08:45)
[2021-05-17] MEDS: Folic Acid 1 MG TABLET PO (08:45)
[2021-05-17] MEDS: PHENobarbitaL 15 MG TABLET 45 MG PO ×2 (08:45→20:00)
[2021-05-17] MEDS: Thiamine HCL 100 MG TABLET PO (08:45)
[2021-05-17] MEDS: Omeprazole 20 MG CAPSULE.DR PO (08:45)
[2021-05-17] MEDS: Midodrine HCl 5 MG TABLET PO ×3 (08:46→20:00)
[2021-05-17] MEDS: Acetaminophen 325 MG TABLET 650 MG PO ×3 (08:49→23:30)
[2021-05-17 09:16] LABS: Hematocrit 23.9 % (37-47); Hemoglobin 8.5 g/dl (12.0-16.0); Mean Corpuscular HGB Conc 35.6 g/dl (31.0-35.0); Mean Corpuscular Volume 95.6 fL (80-98); Mean Platelet Volume 10.1 fL (9.4-12.3); Platelet Count 234 X10*3/uL (160-400); Red Cell Distribution Width 13.7 % (11.0-16.0)
[2021-05-17 09:52] LABS: Anion Gap 10 (12-20); Blood Urea Nitrogen 4 mg/dL (9-16); Calcium 7.5 mg/dL (8.4-10.2); Carbon Dioxide 17 mmol/L (22-29); Chloride 106 mmol/L (96-108); Creatinine Clr Calc Pharmacy 118.7; Estimated Glomerular Filt Rate > 60; Glucose Random 110 mg/dL (60-115); Potassium 3.2 mmol/L (3.3-5.1); Sodium 130 mmol/L (135-145)
[2021-05-17 10:02] LABS: Alanine Aminotransferase 13 U/L (0-31); Alkaline Phosphatase 60 U/L (39-117); Aspartate Amino Transferase 35 U/L (5-31); Bilirubin Direct < 0.2 mg/dL (0.0-0.5); Bilirubin Total < 0.2 mg/dL (0.0-1.0); Total Protein 4.5 g/dL (6.5-8.0)
[2021-05-17] MEDS: vancomycin HCL 1,500 MG in 0.9 % Sodium Chloride 500 ML 333.33 MG IV (10:06)
[2021-05-17 10:41] LABS: Lactic Acid 1.9 mmol/L (0.5-2.0)
[2021-05-17] MEDS: cefTRIAXone sodium 1 GM in 0.9 % Sodium Chloride 50 ML IV (10:47)
[2021-05-17] MEDS: 0.9 % Sodium Chloride 1,905.09 ML 952.55 ML IV (11:59)
--- NOTE | 2021-05-17 13:12 | HO.PM.IMPN ---
Subjective Subjective Date of Service: 05/17/21 Interval History: the patient was seen and evaluated this morning Laying in bed, feels weak and has no energy Still reporting feeling suicidal Right forearm wound draining whitish material with increased pain in the area the Denies any fever, chills or shortness of breath No reported other overnight events. Systemic review: No fever, chills but reporting weakness No chest pain, palpitation No shortness of breath or coughing No abdominal pain, nausea or vomiting No urinary symptoms Right forearm CT wound with reported drainage Physical Exam Vital Signs: Vital Signs: Last Vital Signs Temp 98.0 F 05/17/21 10:51 Pulse 96 05/17/21 10:51 Resp 20 05/17/21 10:51 BP 101/72 05/17/21 10:51 Pulse Ox 99 05/17/21 10:51 Body Mass Index 24.0 Const: Other: Constitutional : Alert, oriented, not in distress Neck : Normal inspection, Supple Cardiovascular : RRR, S1 S2, no lower extremity edema Respiratory : Good bilateral air entry, no crackles, wheezes or rhonchi Gastrointestinal: soft, lax, Normal bowel sounds, Non tender Skin : Warm, Dry, large wound on her right wrist covered with dressing with reported drainage Neurological : Alert & oriented x3, No focal deficit the Objective Data Current Medications Generic Name Dose Route Start Last Admin Trade Name Tinq PRN Reason Stop Dose Admin Acetaminophen 650 mg 05/15/21 21:36 05/17/21 08:49 Acetaminophen 325 Mg Tablet PO 650 mg Q6H PRN Administration Pain, Mild (Pain Scale 1-3) Docusate Sodium 100 mg 05/15/21 21:36 Docusate Sodium 100 Mg Capsule PO DAILY PRN Constipation Enoxaparin Sodium 40 mg 05/15/21 22:00 05/16/21 20:14 Enoxaparin Sodium 40 Mg/0.4 Ml Syringe SUBCUT 40 mg Q24H PERLITA Administration Folic Acid 1 mg 05/16/21 09:00 05/17/21 08:45 Folic Acid 1 Mg Tablet PO 1 mg DAILY PERLITA Administration Sodium Chloride 1,000 mls @ 100 mls/hr 05/16/21 07:00 05/17/21 12:08 Ns IVCONT 100 mls/hr .Q10H PERLITA Infusion Ceftriaxone Sodium 1 gm/ 50 mls @ 100 mls/hr 05/17/21 10:00 05/17/21 11:17 Sodium Chloride IV Infused Q24H PERLITA Infusion Medication 1 each 05/16/21 09:00 No Benzodiazepines MISCELLANE DAILY PERLITA Midodrine 5 mg 05/16/21 11:25 05/17/21 08:46 Midodrine Hcl 5 Mg Tablet PO 5 mg TID PERLITA Administration Omeprazole 20 mg 05/16/21 09:00 05/17/21 08:45 Omeprazole 20 Mg Capsule.Dr PO 20 mg DAILY PERLITA Administration Ondansetron HCl 4 mg 05/15/21 21:36 05/16/21 02:30 Ondansetron Hcl 4 Mg/2 Ml Vial IVPUSH 4 mg Q8H PRN Administration Nausea and Vomiting Oxycodone HCl 5 mg 05/15/21 21:36 05/16/21 09:16 Oxycodone Hcl Immed Release 5 Mg Tablet PO 5 mg Q6H PRN Administration Pain, Severe (Pain Scale 7-10) Pharmacy Consult 1 each 05/15/21 17:46 Consult Rx Perform Med Rec MISCELLANE ONCE PRN Consult order Pharmacy Consult 1 each 05/15/21 20:19 Consult Rx Perform Med Rec MISCELLANE ONCE PRN Consult order Pharmacy Consult 1 each 05/17/21 09:44 Consult Rx Vancomycin Dosing MISCELLANE DAILY PRN Consult order Phenobarbital 45 mg 05/16/21 09:00 05/17/21 08:45 Phenobarbital 15 Mg Tablet PO 05/17/21 21:01 45 mg BID PERLITA Administration Phenobarbital 30 mg 05/18/21 09:00 Phenobarbital 30 Mg Tablet PO 05/19/21 21:01 BID PERLITA Phenobarbital 15 mg 05/20/21 09:00 Phenobarbital 15 Mg Tablet PO 05/21/21 09:01 DAILY PERLITA Pravastatin Sodium 10 mg 05/16/21 09:00 05/17/21 08:45 Pravastatin Sodium 10 Mg Tablet PO 10 mg DAILY PERLITA Administration Sodium Chloride 3 ml 05/16/21 00:00 05/17/21 08:08 0.9 % Sodium Chloride Flush 3 Ml Syringe IVFLUSH Not Given QSHIFT PERLITA Thiamine HCl 100 mg 05/16/21 09:00 05/17/21 08:45 Thiamine Hcl 100 Mg Tablet PO 100 mg DAILY PERLITA Administration Labs CBC & Chem 7: 05/17/21 08:59 05/17/21 08:59 Labs: Laboratory Results - last 24 hr 05/16/21 05/17/21 05/17/21 14:48 08:59 08:59 MCV 95.6 MCH 34.0 H MCHC 35.6 H RDW 13.7 Plt Count 234 MPV 10.1 Absolute Nucleated RBC 0.000 Nucleated RBC % (auto) 0.0 Anion Gap 12 10 L Estim Creat Clear Calc 97.3 118.7 Estimated GFR > 60 > 60 Random Glucose 124 H 110 Lactic Acid Calcium 8.1 L 7.5 L D Total Bilirubin Direct Bilirubin AST ALT Alkaline Phosphatase Total Protein Albumin 05/17/21 05/17/21 08:59 10:11 MCV MCH MCHC RDW Plt Count MPV Absolute Nucleated RBC Nucleated RBC % (auto) Anion Gap Estim Creat Clear Calc Estimated GFR Random Glucose Lactic Acid 1.9 Calcium Total Bilirubin < 0.2 Direct Bilirubin < 0.2 AST 35 H ALT 13 Alkaline Phosphatase 60 D Total Protein 4.5 L D Albumin 3.0 L D Microbiology Microbiology Results: Microbiology 05/15/21 20:31 Blood Culture - Preliminary Blood - Venous No growth after 24 hours. 05/15/21 20:31 Blood Culture - Preliminary Blood - Venous No growth after 24 hours. Assessment and Plan (1) Laceration of right forearm: Status: Acute (2) Suicide attempt: Status: Acute (3) Alcohol abuse: Status: Acute (4) Acute hyponatremia: Status: Acute Assessment and Plan: 46-year-old female with past medical history of hypertension, presents the hospital of to her attempting suicide found to have hyponatremia # right forearm wound infection Hypotension could be secondary to severe sepsis, responded 30 cc/kg IV fluids Sepsis focused exam done Lactic acid within normal blood culture sent Started IV antibiotics of vancomycin and ceftriaxone continue to monitor Surgery following the patient # acute hyponatremia Secondary to possible Beer potomania, hypokalemia Sodium improved to 130 Continue IVF follow BMP nephrology consult appreciated # suicidal ideation # forearm wound crisis consult patient 1 on 1 To get surgical evaluation of the wound # acute hypokalemia Give supplement follow BMP # alcohol abuse and withdrawal CIWA on phenobarb thiamine and folic acid DVT prophylaxis lovenox Quality Stroke Does the patient have a stroke diagnosis?: No VTE Prior VTE?: No VTE Risk Level:: Medical - moderate - high VTE Device Contraindication: Treatment Not Indicated VTE Drug Contraindication: N/A - Med Ordered
[2021-05-17 16:19] LABS: Anion Gap 10 (12-20); Blood Urea Nitrogen 4 mg/dL (9-16); Calcium 7.1 mg/dL (8.4-10.2); Carbon Dioxide 15 mmol/L (22-29); Chloride 112 mmol/L (96-108); Creatinine Clr Calc Pharmacy 114.2; Estimated Glomerular Filt Rate > 60; Glucose Random 83 mg/dL (60-115); Potassium 3.3 mmol/L (3.3-5.1); Sodium 134 mmol/L (135-145)
[2021-05-17 18:06] LABS: Potassium Urine Random 40.8 mmol/L
[2021-05-17 18:27] LABS: Urea, Random Urine 746 mg/dL
[2021-05-17 18:56] LABS: OBS Int Ctl Valid YES; OBS1 NEGATIVE (NEGATIVE)
[2021-05-17] MEDS: Enoxaparin Sodium 40 MG/0.4 ML SYRINGE SUBCUT (20:00)
[2021-05-17] MEDS: 0.9 % Sodium Chloride Flush 3 ML SYRINGE IVFLUSH (20:01)
[2021-05-18] VITALS (9 sets, daily range): BP systolic 84–106; BP diastolic 54–72; PULSE 60–94; RESP 18–20; TEMP 36.1–36.9; O2SAT 98–100
[2021-05-18] MEDS: 0.9 % Sodium Chloride 1,000 ML 100 ML IVCONT ×2 (06:20→17:17)
[2021-05-18] MEDS: Omeprazole 20 MG CAPSULE.DR PO (06:20)
[2021-05-18] MEDS: Acetaminophen 325 MG TABLET 650 MG PO ×2 (06:29→22:43)
[2021-05-18 07:06] LABS: Anion Gap 11 (12-20); Blood Urea Nitrogen 3 mg/dL (9-16); Calcium 7.6 mg/dL (8.4-10.2); Carbon Dioxide 17 mmol/L (22-29); Chloride 109 mmol/L (96-108); Creatinine Clr Calc Pharmacy 126.4; Estimated Glomerular Filt Rate > 60; Glucose Random 76 mg/dL (60-115); Potassium 3.1 mmol/L (3.3-5.1); Sodium 134 mmol/L (135-145)
[2021-05-18 07:17] LABS: Magnesium 1.2 mg/dL (1.6-2.6)
[2021-05-18] MEDS: oxyCODONE HCl Immed Release 5 MG TABLET PO ×2 (08:02→17:22)
[2021-05-18] MEDS: Midodrine HCl 5 MG TABLET PO ×3 (08:03→20:52)
[2021-05-18] MEDS: Folic Acid 1 MG TABLET PO (08:03)
[2021-05-18] MEDS: Pravastatin Sodium 10 MG TABLET PO (08:03)
[2021-05-18] MEDS: PHENobarbitaL 30 MG TABLET PO ×2 (08:03→20:52)
[2021-05-18] MEDS: Thiamine HCL 100 MG TABLET PO (08:03)
[2021-05-18] MEDS: 0.9 % Sodium Chloride Flush 3 ML SYRINGE IVFLUSH ×2 (08:04→20:53)
[2021-05-18] MEDS: Potassium Chloride Packet 20 MEQ PACKET 40 MEQ PO ×2 (08:17→14:17)
[2021-05-18] MEDS: Magnesium Sulfate/H2O 2 GM/50 ML PIGGYBACK IV ×2 (08:17→14:20)
[2021-05-18] MEDS: Magnesium Oxide 400 MG TABLET PO ×2 (08:18→17:17)
--- NOTE | 2021-05-18 08:45 | P.PNGS_ITS ---
Subjective Subjective Date of Service: 05/18/21 Interval history: Says the right wrist is sore Otherwise no new complaints Says she feels much better mentally Physical Exam Vital Signs: Vital Signs: Last Vital Signs Temp 97 F 05/18/21 07:36 Pulse 89 05/18/21 08:03 Resp 20 05/18/21 07:36 BP 106/72 05/18/21 08:03 Pulse Ox 100 05/18/21 07:36 Body Mass Index 24.0 Const: Other: Chemistry 05/15/21 05/15/21 05/16/21 18:17 21:59 14:48 Sodium 122 L 123 L 124 L Potassium 2.8 L 3.2 L 4.5 D Carbon Dioxide 16 L 18 L 17 L BUN 21 H 17 H 9 Creatinine 0.80 0.71 0.61 Calcium 9.9 8.4 D 8.1 L 05/17/21 05/17/21 05/18/21 08:59 14:55 06:01 Sodium 130 L 134 L 134 L Potassium 3.2 L D 3.3 3.1 L Carbon Dioxide 17 L 15 L 17 L BUN 4 L D 4 L 3 L Creatinine 0.50 0.52 0.47 L Calcium 7.5 L D 7.1 L 7.6 L D Hematology 05/15/21 05/16/21 05/17/21 18:17 05:37 08:59 WBC 7.9 8.1 8.0 Hgb 12.5 9.9 L D 8.5 L Plt Count 176 189 234 Urinalysis 05/15/21 20:24 Urine Color YELLOW Urine Appearance CLEAR Urine pH 6.5 Ur Specific Gravit y <= 1.005 Urine Protein TRACE Urine Glucose (UA) NEG Urine Ketones 40 Urine Blood NEG Urine Nitrite NEG Ur Leukocyte Yulissa ase NEG Urine Studies 05/15/21 05/15/21 20:23 20:23 Urine Osmolality 365 L Urine Creatinine 128.88 General: comfortable and no acute distress Resp: Effort & Inspection: normal respiratory effort Cardio: Rate: regular rate GI: Palpation (GI): Soft to palpation and nontender Extrem: Other: Laceration, wrist, clean, with skin gap, no cellulitis, no pus Procedures Date of Service Date of Service: 05/18/21 Progress Note: A&P Assessment and plan (1) Laceration of right forearm: Status: Acute Assessment and Plan: Laceration clean, with skin gap Will allow to heal by secondary intention Dressings changed Continue daily wound care - okay to do dry dressings, wrap wrist with Josiane roll Keep the area clean and dry Once discharged, we can follow her in the office for wound checks Fall Risk Details Current Medications: Current Medications Generic Name Dose Route Start Last Admin Trade Name Tinq PRN Reason Stop Dose Admin Acetaminophen 650 mg 05/15/21 21:36 05/18/21 06:29 Acetaminophen 325 Mg Tablet PO 650 mg Q6H PRN Administration Pain, Mild (Pain Scale 1-3) Docusate Sodium 100 mg 05/15/21 21:36 Docusate Sodium 100 Mg Capsule PO DAILY PRN Constipation Enoxaparin Sodium 40 mg 05/15/21 22:00 05/17/21 20:00 Enoxaparin Sodium 40 Mg/0.4 Ml Syringe SUBCUT 40 mg Q24H PERLITA Administration Folic Acid 1 mg 05/16/21 09:00 05/18/21 08:03 Folic Acid 1 Mg Tablet PO 1 mg DAILY PERLITA Administration Sodium Chloride 1,000 mls @ 100 mls/hr 05/16/21 07:00 05/18/21 06:20 Ns IVCONT 100 mls/hr .Q10H PERLITA Administration Ceftriaxone Sodium 1 gm/ 50 mls @ 100 mls/hr 05/17/21 10:00 05/17/21 11:17 Sodium Chloride IV Infused Q24H PERLITA Infusion Magnesium Sulfate 2 gm in 50 mls @ 25 mls/hr 05/18/21 08:30 05/18/21 08:17 Magnesium Sulfate/H2o IV 05/18/21 10:29 25 mls/hr ONCE ONE Administration Loperamide HCl 2 mg 05/18/21 08:12 Loperamide Hcl 2 Mg Capsule PO Q4H PRN Diarrhea Magnesium Oxide 400 mg 05/18/21 08:30 05/18/21 08:18 Magnesium Oxide 400 Mg Tablet PO 400 mg BIDPC PERLITA Administration Medication 1 each 05/16/21 09:00 No Benzodiazepines MISCELLANE DAILY PERLITA Midodrine 5 mg 05/16/21 11:25 05/18/21 08:03 Midodrine Hcl 5 Mg Tablet PO 5 mg TID PERLITA Administration Omeprazole 20 mg 05/16/21 09:00 05/18/21 06:20 Omeprazole 20 Mg Capsule.Dr PO 20 mg DAILY PERLITA Administration Ondansetron HCl 4 mg 05/15/21 21:36 05/16/21 02:30 Ondansetron Hcl 4 Mg/2 Ml Vial IVPUSH 4 mg Q8H PRN Administration Nausea and Vomiting Oxycodone HCl 5 mg 05/15/21 21:36 05/18/21 08:02 Oxycodone Hcl Immed Release 5 Mg Tablet PO 5 mg Q6H PRN Administration Pain, Severe (Pain Scale 7-10) Pharmacy Consult 1 each 05/15/21 17:46 Consult Rx Perform Med Rec MISCELLANE ONCE PRN Consult order Pharmacy Consult 1 each 05/15/21 20:19 Consult Rx Perform Med Rec MISCELLANE ONCE PRN Consult order Pharmacy Consult 1 each 05/17/21 09:44 Consult Rx Vancomycin Dosing MISCELLANE DAILY PRN Consult order Phenobarbital 30 mg 05/18/21 09:00 05/18/21 08:03 Phenobarbital 30 Mg Tablet PO 05/19/21 21:01 30 mg BID PERLITA Administration Phenobarbital 15 mg 05/20/21 09:00 Phenobarbital 15 Mg Tablet PO 05/21/21 09:01 DAILY PERLITA Potassium Chloride 40 meq 05/18/21 09:00 05/18/21 08:17 Potassium Chloride Packet 20 Meq Packet PO 05/18/21 13:01 40 meq Q4H PERLITA Administration Pravastatin Sodium 10 mg 05/16/21 09:00 05/18/21 08:03 Pravastatin Sodium 10 Mg Tablet PO 10 mg DAILY PERLITA Administration Sodium Chloride 3 ml 05/16/21 00:00 05/18/21 08:04 0.9 % Sodium Chloride Flush 3 Ml Syringe IVFLUSH 3 ml QSHIFT PERLITA Administration Thiamine HCl 100 mg 05/16/21 09:00 05/18/21 08:03 Thiamine Hcl 100 Mg Tablet PO 100 mg DAILY PERLITA Administration Time Spent With Patient Time: Total time spent is greater than 50% in coordination of care (as do cumented) at patient's floor/unit and/or counseling patient: Time with patient: 15 - 24 minutes Quality Stroke Does the patient have a stroke diagnosis?: No VTE Prior VTE?: No VTE Risk Level:: Medical - moderate - high VTE Device Contraindication: Treatment Not Indicated VTE Drug Contraindication: N/A - Med Ordered
[2021-05-18] MEDS: cefTRIAXone sodium 1 GM in 0.9 % Sodium Chloride 50 ML IV (10:09)
[2021-05-18] MEDS: Loperamide HCl 2 MG CAPSULE PO ×2 (10:09→22:44)
[2021-05-18 10:21] LABS: CDiff Gene PCR NEGATIVE (Negative)
--- NOTE | 2021-05-18 11:59 | MHC.CM.PN ---
CM RECEIVED A MESSAGE INDICATING THIS PTS MOTHER/HCP HAD CALLED AND WAS REQUESTING TO SPEAK TO CM RE PTS TREATMENT/DC PLANS. BECAUSE PT IS FULLY ALERT AND ORIENTED, CM MET WITH HER AND REQUESTED PERMISSION TO RETURN HER MOTHERS CALL. PT STATED SHE HAD JUST SPOKEN TO HER MOTHER AND WOULD UPDATE HER PERSONALLY. PT REPORTED SHE DOES NOT WANT CM TO CONTACT HER MOTHER.
--- NOTE | 2021-05-18 13:39 | HO.PM.IMPN ---
Subjective Subjective Date of Service: 05/18/21 Interval History: the patient was seen and evaluated this morning Laying in bed, feels weak and has no energy Blood pressure running solved Right forearm wound painful today, no drainage reported Denies any fever, chills or shortness of breath No reported other overnight events. Systemic review: No fever, chills but reporting weakness No chest pain, palpitation No shortness of breath or coughing No abdominal pain, nausea or vomiting No urinary symptoms Right forearm wound with reported drainage Physical Exam Vital Signs: Vital Signs: Last Vital Signs Temp 97 F 05/18/21 11:38 Pulse 83 05/18/21 11:38 Resp 18 05/18/21 11:38 BP 98/57 L 05/18/21 11:38 Pulse Ox 100 05/18/21 11:38 Body Mass Index 24.0 Const: Other: Constitutional : Alert, oriented, not in distress Neck : Normal inspection, Supple Cardiovascular : RRR, S1 S2, no lower extremity edema Respiratory : Good bilateral air entry, no crackles, wheezes or rhonchi Gastrointestinal: soft, lax, Normal bowel sounds, Non tender Skin : Warm, Dry, large wound on her right wrist covered with dressing with no drainage Neurological : Alert & oriented x3, No focal deficit the Objective Data Current Medications Generic Name Dose Route Start Last Admin Trade Name Tinq PRN Reason Stop Dose Admin Acetaminophen 650 mg 05/15/21 21:36 05/18/21 06:29 Acetaminophen 325 Mg Tablet PO 650 mg Q6H PRN Administration Pain, Mild (Pain Scale 1-3) Docusate Sodium 100 mg 05/15/21 21:36 Docusate Sodium 100 Mg Capsule PO DAILY PRN Constipation Enoxaparin Sodium 40 mg 05/15/21 22:00 05/17/21 20:00 Enoxaparin Sodium 40 Mg/0.4 Ml Syringe SUBCUT 40 mg Q24H PERLITA Administration Folic Acid 1 mg 05/16/21 09:00 05/18/21 08:03 Folic Acid 1 Mg Tablet PO 1 mg DAILY PERLITA Administration Sodium Chloride 1,000 mls @ 100 mls/hr 05/16/21 07:00 05/18/21 06:20 Ns IVCONT 100 mls/hr .Q10H PERLITA Administration Ceftriaxone Sodium 1 gm/ 50 mls @ 100 mls/hr 05/17/21 10:00 05/18/21 10:46 Sodium Chloride IV Infused Q24H PERLITA Infusion Loperamide HCl 2 mg 05/18/21 08:12 05/18/21 10:09 Loperamide Hcl 2 Mg Capsule PO 2 mg Q4H PRN Administration Diarrhea Magnesium Oxide 400 mg 05/18/21 08:30 05/18/21 08:18 Magnesium Oxide 400 Mg Tablet PO 400 mg BIDPC PERLITA Administration Medication 1 each 05/16/21 09:00 No Benzodiazepines MISCELLANE DAILY PERLITA Midodrine 5 mg 05/16/21 11:25 05/18/21 08:03 Midodrine Hcl 5 Mg Tablet PO 5 mg TID PERLITA Administration Omeprazole 20 mg 05/16/21 09:00 05/18/21 06:20 Omeprazole 20 Mg Capsule.Dr PO 20 mg DAILY PERLITA Administration Ondansetron HCl 4 mg 05/15/21 21:36 05/16/21 02:30 Ondansetron Hcl 4 Mg/2 Ml Vial IVPUSH 4 mg Q8H PRN Administration Nausea and Vomiting Oxycodone HCl 5 mg 05/15/21 21:36 05/18/21 08:02 Oxycodone Hcl Immed Release 5 Mg Tablet PO 5 mg Q6H PRN Administration Pain, Severe (Pain Scale 7-10) Pharmacy Consult 1 each 05/15/21 17:46 Consult Rx Perform Med Rec MISCELLANE ONCE PRN Consult order Pharmacy Consult 1 each 05/15/21 20:19 Consult Rx Perform Med Rec MISCELLANE ONCE PRN Consult order Pharmacy Consult 1 each 05/17/21 09:44 Consult Rx Vancomycin Dosing MISCELLANE DAILY PRN Consult order Phenobarbital 30 mg 05/18/21 09:00 05/18/21 08:03 Phenobarbital 30 Mg Tablet PO 05/19/21 21:01 30 mg BID PERLITA Administration Phenobarbital 15 mg 05/20/21 09:00 Phenobarbital 15 Mg Tablet PO 05/21/21 09:01 DAILY PERLITA Pravastatin Sodium 10 mg 05/16/21 09:00 05/18/21 08:03 Pravastatin Sodium 10 Mg Tablet PO 10 mg DAILY PERLITA Administration Sodium Chloride 3 ml 05/16/21 00:00 05/18/21 08:04 0.9 % Sodium Chloride Flush 3 Ml Syringe IVFLUSH 3 ml QSHIFT PERLITA Administration Thiamine HCl 100 mg 05/16/21 09:00 05/18/21 08:03 Thiamine Hcl 100 Mg Tablet PO 100 mg DAILY PERLITA Administration Labs CBC & Chem 7: 05/17/21 08:59 05/18/21 06:01 Labs: Laboratory Results - last 24 hr 05/15/21 05/17/21 05/17/21 20:23 14:55 17:20 Anion Gap 10 L Estim Creat Clear Calc 114.2 Estimated GFR > 60 Random Glucose 83 Calcium 7.1 L Magnesium Ur Random Sodium 114.0 Ur Random Potassium 40.8 Ur Random Urea 746 Stool Occult Blood C. difficile Tox B Gene 05/17/21 05/18/21 05/18/21 17:20 06:01 06:01 Anion Gap 11 L Estim Creat Clear Calc 126.4 Estimated GFR > 60 Random Glucose 76 Calcium 7.6 L D Magnesium 1.2 L* Ur Random Sodium Ur Random Potassium Ur Random Urea Stool Occult Blood NEGATIVE C. difficile Tox B Gene 05/18/21 09:00 Anion Gap Estim Creat Clear Calc Estimated GFR Random Glucose Calcium Magnesium Ur Random Sodium Ur Random Potassium Ur Random Urea Stool Occult Blood C. difficile Tox B Gene NEGATIVE Microbiology Microbiology Results: Microbiology 05/17/21 10:11 Blood Culture - Preliminary Blood - Venous No growth after 24 hours. 05/17/21 10:16 Blood Culture - Preliminary Blood - Venous No growth after 24 hours. 05/15/21 20:31 Blood Culture - Preliminary Blood - Venous No growth after 48 hours. 05/15/21 20:31 Blood Culture - Preliminary Blood - Venous No growth after 48 hours. Assessment and Plan (1) Laceration of right forearm: Status: Acute (2) Suicide attempt: Status: Acute (3) Alcohol abuse: Status: Acute (4) Acute hyponatremia: Status: Acute (5) Suicidal thoughts: Status: Acute (6) Hypomagnesemia: Status: Acute Assessment and Plan: 46-year-old female with past medical history of hypertension, presents the hospital of to her attempting suicide found to have hyponatremia # right forearm wound infection Clean wound per surgical team blood culture pending Discontinue vancomycin and ceftriaxone continue to monitor Surgery following the patient # Hypotension Blood pressure running on the soft side, patient is able to ambulate and go to the bathroom with no reported symptoms Could be secondary to liver disease from alcoholism Responded partially to IV fluids and albumin, no infection identified Will continue to monitor and give IV fluid # Metabolic acidosis Bicarbonate of 17 Start p.o. supplement continue to monitor # acute hyponatremia Secondary to possible Beer potomania, hypokalemia Sodium improved to 134 Continue IVF follow BMP nephrology consult appreciated # suicidal ideation # forearm wound crisis consult patient 1 on 1 To get BHN 1 patient is medically clear # Hypo magnesemia Magnesium 1.3 to give IV and oral supplement Follow mg # acute hypokalemia Give supplement follow BMP # alcohol abuse and withdrawal CIWA on phenobarb thiamine and folic acid DVT prophylaxis lovenox Quality Stroke Does the patient have a stroke diagnosis?: No VTE Prior VTE?: No VTE Risk Level:: Medical - moderate - high VTE Device Contraindication: Treatment Not Indicated VTE Drug Contraindication: N/A - Med Ordered
[2021-05-18] MEDS: Sodium Bicarbonate 650 MG TABLET 1300 MG PO ×2 (14:18→20:52)
--- NOTE | 2021-05-18 15:54 | PC.NURSE ---
Skin/Wound assessment completed today. On admission it was noted patient has a laceration to right wrist. The laceration is slowly closing up, there is scant serosanguineous draining with subcutaneous fat showing no pus seen at this time. Applied woundres' gel covered with gauze and roll gauze.
[2021-05-18] MEDS: Enoxaparin Sodium 40 MG/0.4 ML SYRINGE SUBCUT (20:52)
[2021-05-19] VITALS (7 sets, daily range): BP systolic 92–114; BP diastolic 62–77; PULSE 75–89; RESP 16–20; TEMP 36.3–36.8; O2SAT 96–100
[2021-05-19] MEDS: oxyCODONE HCl Immed Release 5 MG TABLET PO ×3 (01:36→15:29)
[2021-05-19] MEDS: 0.9 % Sodium Chloride 1,000 ML 100 ML IVCONT (06:42)
[2021-05-19] MEDS: Omeprazole 20 MG CAPSULE.DR PO (06:47)
[2021-05-19 07:43] LABS: Alanine Aminotransferase 13 U/L (0-31); Alkaline Phosphatase 70 U/L (39-117); Anion Gap 12 (12-20); Aspartate Amino Transferase 24 U/L (5-31); Bilirubin Direct < 0.2 mg/dL (0.0-0.5); Bilirubin Total 0.3 mg/dL (0.0-1.0); Blood Urea Nitrogen 2 mg/dL (9-16); Calcium 7.6 mg/dL (8.4-10.2); Carbon Dioxide 16 mmol/L (22-29); Chloride 110 mmol/L (96-108); Creatinine Clr Calc Pharmacy 126.4; Estimated Glomerular Filt Rate > 60; Glucose Random 72 mg/dL (60-115); Magnesium 2.3 mg/dL (1.6-2.6); Potassium 3.9 mmol/L (3.3-5.1); Sodium 134 mmol/L (135-145); Total Protein 4.9 g/dL (6.5-8.0)
[2021-05-19 07:55] LABS: Hematocrit 24.5 % (37-47); Hemoglobin 8.6 g/dl (12.0-16.0); Mean Corpuscular HGB Conc 35.1 g/dl (31.0-35.0); Mean Corpuscular Hemoglobin 33.9 pg (27.0-33.0); Mean Corpuscular Volume 96.5 fL (80-98); Mean Platelet Volume 9.5 fL (9.4-12.3); Platelet Count 464 X10*3/uL (160-400); Red Blood Count 2.54 X10*6/uL (4.20-5.50); Red Cell Distribution Width 14.6 % (11.0-16.0); White Blood Count 8.8 X10*3/uL (4.8-10.8)
[2021-05-19 07:56] LABS: VBG Base Excess -5.6 mmol/L; VBG HCO3 18 mmol/L (22-26); VBG pCO2 30 mmHg; VBG pH 7.38 (7.32-7.43); VBG pO2 35 mmHg
[2021-05-19 07:56] LABS: Venous Blood Gas Refer to POC result
[2021-05-19] MEDS: Midodrine HCl 5 MG TABLET PO ×2 (08:16→15:30)
[2021-05-19] MEDS: Pravastatin Sodium 10 MG TABLET PO (08:16)
[2021-05-19] MEDS: Folic Acid 1 MG TABLET PO (08:17)
[2021-05-19] MEDS: PHENobarbitaL 30 MG TABLET PO (08:17)
[2021-05-19] MEDS: Thiamine HCL 100 MG TABLET PO (08:17)
[2021-05-19] MEDS: Magnesium Oxide 400 MG TABLET PO (08:17)
[2021-05-19] MEDS: Sodium Bicarbonate 650 MG TABLET 1300 MG PO (08:18)
--- NOTE | 2021-05-19 08:44 | P.CDIC_ITS ---
[facility] Concurrent Query Service Date: 05/19/21 Documentation Clarification: Please clarify if you are treating a proba ble/suspected/likely or confirmed: Severe Sepsis, Treat/Rule out/Resolved Other, please specify if known or undetermined Provider Response: Other Other Diagnosis: No sepsis\severe sepsis PLEASE DO NOT DELETE/MODIFY EXISTING CONTENT Additional information is needed in order to code to the highest accuracy and appropriate Severity of Illness (SOI). Please clarify the information noted below in your progress notes and discharge summary. Risk Factors/Clinical Indicators/Treatments PN: 05/17 - hypotension could be secondary to severe sepsis, responded 30 cc/kg IV. Sepsis focus exam done. PN: 05/18 - Discontinued Vancomycin, Ceftriaxone. BP could be 2nd to liver disease from alcoholism, no infection ID. CDS: Bibi Amezcua CCS, [facility] Contact Number: [phone] Please Review the information above and exercise your independent professional judgment in responding to the query. If you concur, pleas document in the PROGRESS NOTES and DISCHARGE SUMMARY. If you do not agree with the query, please document in the query above. THIS QUERY IS PART OF THE PERMANENT MEDICAL RECORD
--- NOTE | 2021-05-19 12:52 | PM.PNNEP ---
Subjective Subjective Date of Service: 05/19/21 Interval history: Seen and examined, events noted Physical Exam Vital Signs: Vital Signs: Last Vital Signs Temp 97.6 F 05/19/21 10:59 Pulse 75 05/19/21 10:59 Resp 20 05/19/21 10:59 BP 92/66 05/19/21 10:59 Pulse Ox 100 05/19/21 10:59 Body Mass Index 24.0 Const: Other: Constitutional : Alert, oriented, not in distress Neck : Normal inspection, Supple Cardiovascular : RRR, S1 S2, no lower extremity edema Respiratory : Good bilateral air entry, no crackles, wheezes or rhonchi Gastrointestinal: soft, lax, Normal bowel sounds, Non tender Skin : Warm, Dry, large wound on her right wrist Neurological : Alert & oriented x3, No focal deficit the General: cooperative, healthy appearing, comfortable, no acute distress and alert Orientation/consciousness: patient oriented x3 Limitations: no limitations HENMT: Head: Yes normal to inspection, Yes normocephalic and Yes atraumatic Ears: hearing grossly normal bilaterally General nose exam: Normal external nose present Face and sinus: Yes normal facial exam Mouth: Normal oral and palatal mucosa present Throat: Yes posterior oropharynx normal Eyes: General: appearance normal, both eyes and all related structures Sclerae: sclerae normal Pupils: Equal, round and reactive pupils present EOM: EOMs intact bilaterally Neck: Neck: Yes normal visual inspection Chest: Chest palpation & inspection: normal inspection of the chest Resp: Effort & Inspection: normal respiratory effort and able to speak in complete sentences Auscultation: clear to auscultation bilaterally Cardio: Rate: regular rate Rhythm: regular rhythm Peripheral pulses: Peripheral pulses 2+ throughout GI: Inspection: Yes normal to inspection Palpation (GI): Soft to palpation and nontender Auscultation: normal bowel sounds Back/Spine/Pelvis: Thoracic/Lumbar Spine: thoracic and lumbar spine normal to inspection Skin: Other: Normal color, warm and dry General skin exam: no rashes or lesions noted Neuro: Other: No neurological deficits General: patient oriented x3, no focal motor deficits and normal sensation to monofilament Cranial nerves: Yes CN's II-XII intact bilaterally and Yes Equal, round and reactive pupils present Cognition (Neuro): normal cognition Speech: No Abnormal speech present Gait exam (Neuro): Normal gait present Motor exam (neuro): 5/5 motor strength present throughout Extrem: Other: Clean, slightly oblique laceration volar surface right distal forearm approximately 3 cm resulting in open wound 1 cm x 3 cm by 0.4 cm, exposed subcutaneous tissue is clean General: Yes normal to inspection and Yes no pedal edema Psych: Other: flat affect Appearance: disheveled Objective Data Labs CBC & Chem 7: 05/19/21 07:46 05/19/21 06:13 Labs: Laboratory Results - last 24 hr 05/19/21 05/19/21 05/19/21 06:13 07:46 07:48 WBC 8.8 RBC 2.54 L Hgb 8.6 L Hct 24.5 L MCV 96.5 MCH 33.9 H MCHC 35.1 H RDW 14.6 Plt Count 464 H D MPV 9.5 Absolute Nucleated RBC 0.000 Nucleated RBC % (auto) 0.0 VBG pH 7.38 VBG pCO2 30 VBG pO2 35 VBG HCO3 18 L VBG O2 Saturation 63.0 VBG Base Excess -5.6 Sodium 134 L Potassium 3.9 D Chloride 110 H Carbon Dioxide 16 L Anion Gap 12 BUN 2 L Creatinine 0.47 L Estim Creat Clear Calc 126.4 Estimated GFR > 60 Random Glucose 72 Calcium 7.6 L Magnesium 2.3 Total Bilirubin 0.3 Direct Bilirubin < 0.2 AST 24 ALT 13 Alkaline Phosphatase 70 Total Protein 4.9 L Albumin 3.0 L Microbiology Microbiology Results: Microbiology 05/17/21 10:11 Blood - Venous Blood Culture - Preliminary No growth after 48 hours. 05/17/21 10:16 Blood - Venous Blood Culture - Preliminary No growth after 48 hours. 05/15/21 20:31 Blood - Venous Blood Culture - Preliminary No growth after 48 hours. 05/15/21 20:31 Blood - Venous Blood Culture - Preliminary No growth after 48 hours. Procedures Date of Service Date of Service: 05/19/21 Assessment & Plan Assessment and plan (1) Acute hyponatremia: Status: Acute Assessment and Plan: persistent low na the urine na is low c/w pre-renal picture will repeat urine studies (2) Acute hypokalemia: Status: Acute Assessment and Plan: HypoNatremia: mulitfact; resolving NAG depressed HCO3 but VABG c/w primary resp alkalosis: etiol for this is unlcear and may have combination mied A/B disorder with both a primary resp alk and primary NAGMA DDx for resp alk is quite narrow and she does not fit in with any causes other than possibly psychogenic chronic hypervent DDx NAGMA: diarrhea, RTA or if her primary disoder is vanessa resp alk then the kidney dumps HCO3 didier to compensate ( her urine pH was high) Low BPs REC: agree with po NaHCO3; check TSH, am cortisol; may need BG if serum HCO3 decr further; will repeat urine stuides and measure Urine AG if serum HCO3 decr furhter will follow with team Time Spent With Patient Time: Total time spent is greater than 50% in coordination of care (as documented) at patient's floor/unit and/or counseling patient: Progress Note: Quality Stroke Does the patient have a stroke diagnosis?: No
--- NOTE | 2021-05-19 14:21 | P.DS_ITS ---
DS: Providers Provider Date of Service: 05/19/21 Date of admission: 05/15/21 21:23 Primary care physician: Unknown Physician Consults: 05/15/21 20:10 Consult to Nephrology Stat Consulting Provider: Asher Brewer Reason for consultation: hyponatremia 05/16/21 13:21 Consult to General Surgery Routine Consulting Provider: Imani Noble Reason for consultation: Forearm cut wound, suicidal attempt for your kind eval DS: Diagnosis Discharge Diagnosis (1) Acute hyponatremia: Status: Resolved (2) Acute hypokalemia: Status: Resolved (3) Hypomagnesemia: Status: Resolved (4) Laceration of right forearm: Status: Resolved (5) Suicide attempt: (6) Alcohol abuse: DS: Medications Discharge Medications Home Medications: Home Medications Medication Instructions Recorded Confirmed amlodipine 5 mg tablet 5 mg PO DAILY 05/15/21 05/15/21 pantoprazole 40 mg tablet,delayed 40 mg PO DAILY 05/15/21 05/15/21 release pravastatin 10 mg tablet 10 mg PO DAILY 05/15/21 05/15/21 DS: Summary Hospital Course Hospital Course: Admission note HPI This is a 46-year-old female with a past medical history of hypertension, GERD, hyperlipidemia and alcohol abuse who presents to the hospital after the hotel she was residing on called the police for wellness check.? Patient reports that she had locked herself in a hotel for the past month drinking heavily about 1 L of vodka daily as well as beer, due to a break-up with her fiance due to her history of alcohol abuse.? Patient reports suicidal ideation, she attempted suicide by cutting her wrist but was unsuccessful in committing suicide.? She reports that she has been drinking fluids but has not been eating well, denies any headache, no change in vision, no abdominal pain nausea or vomiting, no d iarrhea constipation, no urinary symptoms.? Reports dizziness but no chest pain.? And no shortness of breath.? She continues to be suicidal. On arrival to the ED patient hemodynamically stable with no significant abnormal vitals except for a heart rate of 121 Labs are significant for WBC count of 7.9, hemoglobin of 12.5, pH of 7.44, sodium of 122, potassium of 2.8, serum osmolarity of 255, urine osmolality of 365, sodium random less than 20, specific acid level of less than 5 Hospital course The patient was admitted to the hospital for suicidal attempt by laceration of the right wrist few days prior to hospital presentation. No infection was noted in the wound as to was evaluated by surgical team who recommended wound care with no surgical intervention needed at this point. To follow-up with surgery team as outpatient after discharge. The patient was noted to have acute hyponatremia which believed to be a result of poor p.o. to chase and hypovolemia. Treated with IV fluid with good response over the course of hospital stay as nephrology team follow the patient closely. Sodium improved back to 134. She was noted as well to hypokalemia and hypomagnesemia which both were replaced and improved back to normal. Started on phenobarbital for alcohol withdrawal with good response as no symptoms developed. To be continued on both thiamine and folic acid. Advised to quit drinking altogether. Patient was noted to be hypotensive. Workup started for possible infection but no infection was found and the patient seems to be doing well on T-piece low readings of 90s over 60s which could be contributed to her chronic alcohol usage. A started on midodrine which will keep her on at time of discharge. Patient was evaluated by the crisis team after being medically stable who recom mended inpatient psych admission. Time Spent with Patient Time attestation: Total time spent providing and/or coordinating discharge services: Discharge coordination time: Greater than 30 minutes Quality: Stroke Does the patient have a stroke diagnosis?: No Physical Exam Vital Signs: Vital Signs: Last Vital Signs Temp 97.6 F 05/19/21 10:59 Pulse 75 05/19/21 10:59 Resp 20 05/19/21 10:59 BP 92/66 05/19/21 10:59 Pulse Ox 100 05/19/21 10:59 Body Mass Index 24.0 Const: Other: Constitutional : Alert, oriented, not in distress Neck : Normal inspection, Supple Cardiovascular : RRR, S1 S2, no lower extremity edema Respiratory : Good bilateral air entry, no crackles, wheezes or rhonchi Gastrointestinal: soft, lax, Normal bowel sounds, Non tender Skin : Warm, clean and dry wound on her right wrist covered with dressing with no drainage Neurological : Alert & oriented x3, No focal deficit the DS: Data Data Completed and Pending Labs on day of discharge: Laboratory Results - last 24 hr 05/19/21 05/19/21 05/19/21 06:13 07:46 07:48 WBC 8.8 RBC 2.54 L Hgb 8.6 L Hct 24.5 L MCV 96.5 MCH 33.9 H MCHC 35.1 H RDW 14.6 Plt Count 464 H D MPV 9.5 Absolute Nucleated RBC 0.000 Nucleated RBC % (auto) 0.0 VBG pH 7.38 VBG pCO2 30 VBG pO2 35 VBG HCO3 18 L VBG O2 Saturation 63.0 VBG Base Excess -5.6 Sodium 134 L Potassium 3.9 D Chloride 110 H Carbon Dioxide 16 L Anion Gap 12 BUN 2 L Creatinine 0.47 L Estim Creat Clear Calc 126.4 Estimated GFR > 60 Random Glucose 72 Calcium 7.6 L Magnesium 2.3 Total Bilirubin 0.3 Direct Bilirubin < 0.2 AST 24 ALT 13 Alkaline Phosphatase 70 Total Protein 4.9 L Albumin 3.0 L Preliminary micro results at discharge 05/17/21 10:11 Blood Culture - Preliminary Blood - Venous No growth after 48 hours. 05/17/21 10:16 Blood Culture - Preliminary Blood - Venous No growth after 48 hours. 05/15/21 20:31 Blood Culture - Preliminary Blood - Venous No growth after 48 hours. 05/15/21 20:31 Blood Culture - Preliminary Blood - Venous No growth after 48 hours. Discharge Plan Discharge Patient Disposition: Xfer Psychiatric Hosp Referrals: Physician,Unknown [Primary Care Provider] - 1 Week Discharge Medications: New midodrine 5 mg Tablet 5 mg PO TID 7 Days Qty: 21 RF: 0 magnesium oxide 400 mg (241.3 mg magnesium) Tablet 400 mg PO BIDPC 30 Days Qty: 60 RF: 0 sodium bicarbonate 650 mg Tablet 650 mg PO BID 7 Days Qty: 14 RF: 0 folic acid 1 mg Tablet 1 mg PO DAILY 30 Days Qty: 30 RF: 0 thiamine mononitrate (vit B1) 100 mg Tablet 100 mg PO DAILY 30 Days Qty: 30 RF: 0 Continued pravastatin 10 mg Tablet 10 mg PO DAILY RF: 0 pantoprazole 40 mg Tablet,Delayed Release (Dr/Ec) 40 mg PO DAILY RF: 0 Discontinued amlodipine 5 mg Tablet 5 mg PO DAILY RF: 0 Discharge Orders: Discharge Order (Routine); Ordered 05/19/21 Ordered By: Ingrid Pollard Activity on Discharge: As tolerated Stand Alone Forms: Patient Portal Discharge page Discharge Date/Time: 05/19/21 20:59
--- NOTE | 2021-05-19 16:19 | MHC.RECOVRN ---
46 year old female presented to [facility] ED via EMS on 05/15 due to currently living in a hotel/recently became homeless. Hotel staff called [employer] for wellness check. According to EMS pt cut wrist with razor a few days ago and has been laying in bed since. Pt still reports SI upon arrival to ED per lead cargo mover. Upon evaluation, reported drinking 1 bottle vodka daily x 30 days and was found to have hyponatremia as well as hypokalemia. Pt medically admitted.? T/w met with pt in 473 after consult placed to CARE Team. Pt has been medically cleared and will be transferring to later today. Pt reports always having a drinking problem however, can abstain for periods of time. Pt reports most recent increase in alcohol consumption has been due to depression, loss of job, and daughter living in [place]. Pt reports within the past 30 days consuming alcohol most days. Pt reports some days will be a 12 pack of beer others will be a 1.75 liter bottle of vodka.? Pt denies ever experiencing withdrawal symptoms. Other than one ATS admission to [facility] at age 23, pt has not received treatment for AUD. Pt states I know I can do it on my own. I was just in [place] for 2 weeks and didn't have a drop. Pt provided with education and resources regarding treatment and supports for AUD. Pt educated regarding medication for AUD; interested in Campral.? Pt denies other questions or concerns at this time. Pt provided with t/w contact information if needed.? Case discussed with pts RN as well as Gladys Carolina APRN.?
[2021-05-20 06:46] LABS: VBG Base Excess -6.9 mmol/L; VBG HCO3 15 mmol/L (22-26); VBG pCO2 24 mmHg; VBG pH 7.41 (7.32-7.43); VBG pO2 39 mmHg
== END 2021-05-19 20:59 | DRG 426 ==
LOC: HO.ED 21:05 → HO.EDOVER 21:39 → HO.IMC 23:01
PROVIDERS: Nurse Practitioner Family; Admitting Provider Internal Medicine; Emergency Provider Emergency Medicine; Visit Provider Student in an Organized Health Care Education/Training Program
DX: E87.1 Hypo-osmolality and hyponatremia (principal); R45.851 Suicidal ideations; E83.42 Hypomagnesemia; E78.5 Hyperlipidemia, unspecified; S61.511A Laceration without foreign body of right wrist, initial encounter; X78.9XXA Intentional self-harm by unspecified sharp object, initial encounter; K21.9 Gastro-esophageal reflux disease without esophagitis; F10.10 Alcohol abuse, uncomplicated; Z20.822 Contact with and (suspected) exposure to COVID-19; E87.6 Hypokalemia; F17.210 Nicotine dependence, cigarettes, uncomplicated; Z91.5 Personal history of self-harm; Z71.6 Tobacco abuse counseling; Z79.899 Other long term (current) drug therapy
CPT/HCPCS: 36415; 80048; 80076; 80143; 80179; 80307; 81003; 82009; 82077; 82272; 82436; 82803; 83605; 83735; 83930; 83935; 84133; 84300; 84540; 84560; 85025; 85027; 87040; 87493; 87635; 93005; 96361; 96365; 99285; J0696; J1650; J2405; J2560; J3370; J3475

== ENCOUNTER 2021-05-19 21:02 | Inpatient (IN) | payer OTHER, SELFPAY ==
--- NOTE | ~2021-05-19 | XR_ITS ---
EXAMINATION: XR CHEST CLINICAL INFORMATION: Elevated BNP. Edema. COMPARISON: None TECHNIQUE: Frontal portable view of the chest was obtained. 4:38 PM FINDINGS: No significant abnormality is noted involving the heart, lungs, mediastinum, bony thorax or soft tissues. XR/XR chest 1V IMPRESSION: Unremarkable examination.
--- NOTE | ~2021-05-19 | US_ITS ---
EXAMINATION: US VENOUS ULTRASOUND WITH DOPPLER LOWER EXTREMITY, BILATERAL CLINICAL INFORMATION: Swelling and pain COMPARISON: None TECHNIQUE: Ultrasound of the deep veins is performed from the hip to the calf with compression sonography and color and pulse Doppler assessment. Spectral analysis with color-flow imaging is performed. FINDINGS: RIGHT: There is normal venous compression and respiratory variation and augmented flow. The visualized common femoral vein, superficial femoral vein, profunda femoral vein, popliteal vein, and the trifurcation region shows no evidence of deep venous thrombosis. There is no significant popliteal fossa cyst. Subcutaneous edema is seen in the medial calf. LEFT: There is normal venous compression and respiratory variation and augmented flow. The visualized common femoral vein, superficial femoral vein, profunda femoral vein, popliteal vein, and the trifurcation region shows no evidence of deep venous thrombosis. There is no significant popliteal fossa cyst. Subcutaneous edema is seen in the medial calf. If the patient's symptoms persist, followup ultrasound in 5 days 7 days might be of value to exclude proximal propagation from a non-visualized calf vein. US/US venous duplex LE BI IMPRESSION: No DVT demonstrated in the bilateral lower extremities.
[2021-05-19 21:41] VITALS: BMI 51.2
[2021-05-19] MEDS: oxyCODONE HCl Immed Release 5 MG TABLET 2.5 MG PO (22:30)
[2021-05-19] MEDS: hydrOXYzine HCL 25 MG TABLET PO (22:31)
[2021-05-19] MEDS: traZODone HCL 50 MG TABLET PO ×2 (22:31→23:56)
[2021-05-19 22:41] VITALS: BP 110/70; PULSE 83; RESP 16; TEMP 36.5; O2SAT 99
[2021-05-19] MEDS: Sodium Bicarbonate 650 MG TABLET PO (23:56)
--- NOTE | 2021-05-20 00:05 | PC.ADMIT ---
PT is 46 year old female admitted to unit for first time at 21:32 from [facility], PT is on here on a CV, NKA, denies SI/HI. PT has history of alcohol abuse and SI. PT has a gash on right wrist from razor, dressing clean, dry and intact. Past medical history of GERD, hyperlipidemia, and HTN. PT oriented to unit and staff. PT states she is depressed 'because my daughter lives in [place] and recently got diagnosed with glaucoma . PT was recently living in a hotel due to significant other not being able to deal with PT drinking anymore, PT reported drinking heavily ever day and not eating. Hotel staff did a wellness check on PT and called EMS. PT would like to get help for drinking and depressive issues. PT had a fall within the past 6 months but was drinking at the time. PT took meds and was pleasant.
[2021-05-20] MEDS: Omeprazole 20 MG CAPSULE.DR PO (08:01)
[2021-05-20 08:23] LABS: Cholesterol 112 mg/dL; HDL Cholesterol 33 mg/dL; LDL Cholesterol Calculated 59 mg/dl; Triglycerides 102 mg/dL
[2021-05-20 08:25] VITALS: BP 90/58; PULSE 84; RESP 14; TEMP 36.3; O2SAT 100
[2021-05-20 08:34] LABS: Thyroid Stimulating Hormone 1.14 uIU/mL (0.32-4.0)
[2021-05-20] MEDS: Pravastatin Sodium 10 MG TABLET PO (08:52)
[2021-05-20] MEDS: Magnesium Oxide 400 MG TABLET PO ×2 (08:52→16:17)
[2021-05-20] MEDS: Thiamine HCL 100 MG TABLET PO (08:52)
[2021-05-20 08:53] VITALS: BP 90/58; PULSE 84
[2021-05-20] MEDS: Sodium Bicarbonate 650 MG TABLET PO ×2 (08:53→22:17)
[2021-05-20] MEDS: Midodrine HCl 5 MG TABLET PO ×3 (08:53→22:17)
[2021-05-20] MEDS: Folic Acid 1 MG TABLET PO (08:54)
[2021-05-20] MEDS: Acetaminophen 325 MG TABLET 650 MG PO ×2 (08:58→15:53)
[2021-05-20] MEDS: oxyCODONE HCl Immed Release 5 MG TABLET 2.5 MG PO (08:58)
[2021-05-20 09:37] LABS: Folate 5.4 ng/mL (> or = 4.0); Vitamin B12 474 pg/mL (200-900)
[2021-05-20 11:18] LABS: Estimated Average Glucose 85 mg/dL; Hemoglobin A1c % 4.6 %
--- NOTE | 2021-05-20 15:44 | P.HPPS_ITS ---
HPI Chief Complaint: SI Sources of Information: patient interviewed, chart reviewed and crisis/core team assessment reviewed HPI Subjective Notes: Conditional Voluntary Healthcare Proxy: No Guardianship: No Medical Problems Affecting Mental Status: No Narrative: recently homeless after sirisha left her due to her drinking (14 year relationship). recently lost her job due to calling out sick too many times due to drinking. daughter recently diagnosed with glaucoma, which she has found has affected her mood and alcohol consumption. had been staying in a hotel for the 30 days [employer], ended up cutting her wrist in hotel room. a safety and welfare check had been requested by hotel staff and police found her in her room with wound and she was then brought to the ED. on interview with pt explains she has been depressed ever since her daughter was about 13 years old (she is 26 yo now). she believes she has been drinking so much because of her depression. she feels she has thrown herself into her work in order to avoid feeling her depression and has just been on the go for years and years. she denies any symptoms of depression until she found out her daughter has glaucoma, per her report, and her drinking escalated. she has been drinking 3-4 times per week, 3 or so drinks each time, for most of the past 20 years. in the past month she has sharply escalated to what sounds like 750 mL of vodka in a day. she reports she was sober at the time of her cutting. she states she just felt like giving up, like there was nothing worth living for. upon admission she felt the same, but since she has been in the hospital her perspective has changed. she states she does not want to or kill herself and she just wants to get better. she denies any HI/AVH. she denies CASTORENA, swe ats, tremors, n/v/d, panic. she denies all neurovegetative Sx of depression until she heard the news about her daughter's health and started drinking more (calling into question her narrative of chronic depression and her drinking's being driven by it). R/B of wellbutrin discussed, including Sz, agitation/insomnia. pt reports previous Rx for the medication for smoking cessation; she tolerated it without difficulty then. agrees to start at wellbutrin XL 150 mg daily. also interested in campral. does not want antabuse or naltrexone. plan made to start campral trial once it is evident she is tolerating wellbutrin again. Past Psychiatric History: pt denies any formal psychiatric history. she does report feeling she developed a depression when her daughter was about 13 yo and her daughter developed mental health issues and started to have psychiatric hospitalizations. she believes she has been depressed more or less since, although she has never had any counseling or medication. no h/o SA. no SI prior to the index event, by her report. Medical Evaluation Reviewed: Yes [facility] Medical History Alcohol abuse GERD (gastroesophageal reflux disease) Hyperlipidemia Hypertension Family History: daughter - diagnosed with bipolar disorder and ADHD. currently doing well, on medication. daughter has h/o psychiatric hosps. pt's father and various non-first degree relatives with alcohol use disorder. Social History: lived in [place], [place] until 10 yo, then moved to [place]. has 2 younger brothers and grew up with both parents in the home. one daughter who is 26 yo and recently moved to [place]. Substance History: pt reports h/o drinking 3-4 nights weekly about 3 drinks per night for most of the past 20 years. she had a detox about 23 [address] [facility] and then was sober 2.5 years. since she learned her daughter has glaucoma she began drinking more (daughter also recently moved to [place]). then she lost her housing, fiancee, and job; she radically increased her drinking over the past month such that she is unable to reliably indicate how much she was drinking, but she states that some days she consumed a bottle of vodka. cigarettes - yes cannabis - yes (utox POS) Diagnostics Vital Signs (24Hr): Vital Signs - 24 hr 05/19/21 22:41 05/20/21 08:25 05/20/21 08:53 Temperature 97.7 F 97.3 F Pulse Rate 83 84 84 Respiratory Rate 16 14 Blood Pressure 110/70 90/58 L 90/58 L Pulse Oximetry 99 100 Body Mass Index 51.2 Labs Labs: Laboratory Results - last 48 hr 05/20/21 05/20/21 05/20/21 07:09 07:10 07:10 Estimat Average Glucose 85 Hemoglobin A1c % 4.6 Triglycerides 102 Cholesterol 112 LDL Cholesterol, Calc 59 HDL Cholesterol 33 Vitamin B12 474 Folate 5.4 TSH 1.14 Meds/Allergies Meds Home Medications Acetaminophen (Acetaminophen 325 Mg Tablet) 650 mg PO Q6H PRN PRN Reason: Pain, Mild (Pain Scale 1-3) Last Admin: 05/20/21 15:53 Dose: 650 mg Documented by: Al Hydroxide/Mg Hydroxide (Magnesium Hydrox/Alum Hydrox 30 Ml Oral.Susp) 30 ml PO Q6H PRN PRN Reason: Heartburn/Nausea Bupropion HCl (Bupropion Hcl Xl 150 Mg Tab.Er.24h) 150 mg PO DAILY [facility] Last Admin: 05/20/21 15:53 Dose: 150 mg Documented by: Docusate Sodium (Docusate Sodium 100 Mg Capsule) 100 mg PO DAILY PRN PRN Reason: Constipation Folic Acid (Folic Acid 1 Mg Tablet) 1 mg PO DAILY [facility] Last Admin: 05/20/21 08:54 Dose: 1 mg Documented by: Hydroxyzine HCl (Hydroxyzine Hcl 25 Mg Tablet) 25 mg PO BEDTIME PRN PRN Reason: Anxiety Last Admin: 05/19/21 22:31 Dose: 25 mg Documented by: Loperamide HCl (Loperamide Hcl 2 Mg Capsule) 2 mg PO Q4H PRN PRN Reason: Diarrhea Magnesium Hydroxide (Milk Of Magnesia 30 Ml Oral.Susp) 30 ml PO DAILY PRN PRN Reason: Constipation Magnesium Oxide (Magnesium Oxide 400 Mg Tablet) 400 mg PO BIDPC [facility] Last Admin: 05/20/21 16:17 Dose: 400 mg Documented by: Midodrine (Midodrine Hcl 5 Mg Tablet) 5 mg PO TID [facility] Last Admin: 05/20/21 15:53 Dose: 5 mg Documented by: Omeprazole (Omeprazole 20 Mg Capsule.) 20 mg PO DAILY@0630 [facility] Last Admin: 05/20/21 08:01 Dose: 20 mg Documented by: Ondansetron HCl (Ondansetron Hcl 4 Mg/2 Ml Vial) 4 mg IVPUSH Q8H PRN PRN Reason: Nausea and Vomiting Oxycodone HCl (Oxycodone Hcl Immed Release 5 Mg Tablet) 5 mg PO Q6H PRN PRN Reason: Pain, Severe (Pain Scale 7-10) Last Admin: 05/20/21 16:16 Dose: 5 mg Documented by: Pravastatin Sodium (Pravastatin Sodium 10 Mg Tablet) 10 mg PO DAILY [facility] Last Admin: 05/20/21 08:52 Dose: 10 mg Documented by: Sodium Bicarbonate (Sodium Bicarbonate 650 Mg Tablet) 650 mg PO BID [facility] Last Admin: 05/20/21 08:53 Dose: 650 mg Documented by: Thiamine HCl (Thiamine Hcl 100 Mg Tablet) 100 mg PO DAILY [facility] Last Admin: 05/20/21 08:52 Dose: 100 mg Documented by: Trazodone HCl (Trazodone Hcl 50 Mg Tablet) 50 mg PO BEDTIME PRN PRN Reason: Insomnia Last Admin: 05/19/21 23:56 Dose: 50 mg Documented by: Allergies Allergies Allergy/AdvReac Type Severity Reaction Status Date / Time No Known Allergies Allergy Verified 05/15/21 17:28 Mental Status Exam Mental Status Exam Narrative: appropriately dressed and groomed. bandage on right volar forearm. no PMA/PMR. cooperative with interview. speech nml in rate, amount. decr loudness. decr prosody. nml latency. thoughts linear and logical without paranoia or delusions. affect constricted, appropriate to context, normo- intense, non-labile. mood i'm sad. i just want to get better. denies SI/HI/AVH. Assessment & Plan Assessment & Plan (1) Major depressive disorder with current active episode: Status: Acute Code(s): F32.9 - Major depressive disorder, single episode, unspecified Assessment and Plan: improved mood since admission, no longer suicidal. (2) Alcohol use disorder: Status: Acute Assessment and Plan: detoxed. no need for 4th dose of phenobarb. Assessment and Plan: 1. MDD - started wellbutrin XL 150 mg daily as of 05/20. interested in med mgmt and psychotherapy at discharge. 2. AUD - detox completed. interested in campral. will start once stable on wellbutrin. 3. Dispo - pending. Reason for continued inpatient stay Substantial Risk for: harm to self, inability to function and rapid decompensation
[2021-05-20 15:53] VITALS: BP 92/53; PULSE 80
[2021-05-20] MEDS: buPROPion HCl XL 150 MG TAB.ER.24H PO (15:53)
[2021-05-20] MEDS: oxyCODONE HCl Immed Release 5 MG TABLET PO ×2 (16:16→22:21)
[2021-05-20 18:00] VITALS: BP 92/55; PULSE 87; TEMP 36.6; O2SAT 100
[2021-05-20 19:17] VITALS: BMI 23.3
[2021-05-20 22:17] VITALS: BP 97/52; PULSE 86
[2021-05-20] MEDS: traZODone HCL 50 MG TABLET PO (22:17)
[2021-05-20 22:26] VITALS: BP 97/52; PULSE 81; O2SAT 100
[2021-05-21] MEDS: traZODone HCL 50 MG TABLET PO ×2 (00:06→22:29)
[2021-05-21 06:00] VITALS: BP 87/61; PULSE 77; RESP 16; TEMP 36.4; O2SAT 100
[2021-05-21] MEDS: Omeprazole 20 MG CAPSULE.DR PO (06:43)
[2021-05-21] MEDS: Acetaminophen 325 MG TABLET 650 MG PO ×3 (06:45→20:02)
[2021-05-21] MEDS: oxyCODONE HCl Immed Release 5 MG TABLET PO ×3 (06:45→20:01)
[2021-05-21 08:18] VITALS: BP 87/61; PULSE 77
[2021-05-21] MEDS: Midodrine HCl 5 MG TABLET PO ×3 (08:18→20:02)
[2021-05-21] MEDS: buPROPion HCl XL 150 MG TAB.ER.24H PO (08:18)
[2021-05-21] MEDS: Magnesium Oxide 400 MG TABLET PO ×2 (08:18→17:32)
[2021-05-21] MEDS: Pravastatin Sodium 10 MG TABLET PO (08:18)
[2021-05-21] MEDS: Sodium Bicarbonate 650 MG TABLET PO ×2 (08:18→20:03)
[2021-05-21] MEDS: Folic Acid 1 MG TABLET PO (08:18)
[2021-05-21] MEDS: Thiamine HCL 100 MG TABLET PO (08:18)
--- NOTE | 2021-05-21 13:22 | P.PNPSI_ITS ---
Subjective Subjective Date of Service: 05/21/21 Reason For Visit: SI Interim History: pt reports she continues to improve in terms of her mood, just wants to get better and move on with her life. interested in rehab for AUD Tx. mother brought her some clothes and will be visiting today. feeling lonely and sad. plans to call her daughter today as well. did not sleep well last night but declines to increase trazodone dosing for the time being. agreeable to increase wellbutrin on tuesday and then start campral on tuesday. no other complaints or requests, states she is enjoying art group and looking forward to attending more psychotherapy groups. learning about coping skills. per staff, anxious and depression 03/12. angry with her self for what she has done. showering, saw wound care nurse last night. states wound not closed. attending groups, pleasant. interacting with peers. Mental Status Exam Mental Status Exam Narrative: appropriately dressed and groomed. bandage on right volar forearm. no PMA/PMR. cooperative with interview. speech nml in rate, amount, loudness. decr prosody. nml latency. thoughts linear and logical without paranoia or delusions. affect constricted, appropriate to context, normo-intense. no SI/HI/AVH expressed. Diagnostics Vital Signs (24Hr): Vital Signs - 24 hr 05/20/21 15:53 05/20/21 18:00 05/20/21 22:17 Temperature 97.8 F Pulse Rate 80 87 86 Respiratory Rate Blood Pressure 92/53 L 92/55 L 97/52 L Pulse Oximetry 100 05/20/21 22:26 05/21/21 06:00 05/21/21 08:18 Temperature 97.6 F Pulse Rate 81 77 77 Respiratory Rate 16 Blood Pressure 97/52 L 87/61 L 87/61 L Pulse Oximetry 100 100 Body Mass Index 23.3 Labs Labs: Laboratory Results - last 48 hr 05/20/21 05/20/21 05/20/21 07:09 07:10 07:10 Estimat Average Glucose 85 Hemoglobin A1c % 4.6 Triglycerides 102 Cholesterol 112 LDL Cholesterol, Calc 59 HDL Cholesterol 33 Vitamin B12 474 Folate 5.4 TSH 1.14 Medications Medications Current Medications Generic Name Dose Route Start Last Admin Trade Name Freq PRN Reason Stop Dose Admin Acetaminophen 650 mg 05/19/21 21:14 05/21/21 13:16 Acetaminophen 325 Mg Tablet PO 650 mg Q6H PRN Administration Pain, Mild (Pain Scale 1-3) Al Hydroxide/Mg Hydroxide 30 ml 05/19/21 21:14 Magnesium Hydrox/Alum Hydrox 30 Ml Oral.Susp PO Q6H PRN Heartburn/Nausea Bupropion HCl 150 mg 05/20/21 14:00 05/21/21 08:18 Bupropion Hcl Xl 150 Mg Tab.Er.24h PO 150 mg DAILY [facility] Administration Docusate Sodium 100 mg 05/19/21 21:14 Docusate Sodium 100 Mg Capsule PO DAILY PRN Constipation Folic Acid 1 mg 05/20/21 09:00 05/21/21 08:18 Folic Acid 1 Mg Tablet PO 1 mg DAILY [facility] Administration Hydroxyzine HCl 25 mg 05/19/21 21:14 05/19/21 22:31 Hydroxyzine Hcl 25 Mg Tablet PO 25 mg BEDTIME PRN Administration Anxiety Loperamide HCl 2 mg 05/19/21 21:14 Loperamide Hcl 2 Mg Capsule PO Q4H PRN Diarrhea Magnesium Hydroxide 30 ml 05/19/21 21:14 Milk Of Magnesia 30 Ml Oral.Susp PO DAILY PRN Constipation Magnesium Oxide 400 mg 05/20/21 08:30 05/21/21 08:18 Magnesium Oxide 400 Mg Tablet PO 400 mg BIDPC [facility] Administration Midodrine 5 mg 05/20/21 09:00 05/21/21 08:18 Midodrine Hcl 5 Mg Tablet PO 5 mg TID [facility] Administration Omeprazole 20 mg 05/20/21 06:30 05/21/21 06:43 Omeprazole 20 Mg Capsule. PO 20 mg DAILY@0630 [facility] Administration Ondansetron HCl 4 mg 05/19/21 21:14 Ondansetron Hcl 4 Mg/2 Ml Vial IVPUSH Q8H PRN Nausea and Vomiting Oxycodone HCl 5 mg 05/20/21 15:43 05/21/21 13:16 Oxycodone Hcl Immed Release 5 Mg Tablet PO 5 mg Q6H PRN Administration Pain, Severe (Pain Scale 7-10) Pravastatin Sodium 10 mg 05/20/21 09:00 05/21/21 08:18 Pravastatin Sodium 10 Mg Tablet PO 10 mg DAILY [facility] Administration Sodium Bicarbonate 650 mg 05/19/21 21:14 05/21/21 08:18 Sodium Bicarbonate 650 Mg Tablet PO 650 mg BID [facility] Administration Thiamine HCl 100 mg 05/20/21 09:00 05/21/21 08:18 Thiamine Hcl 100 Mg Tablet PO 100 mg DAILY [facility] Administration Trazodone HCl 50 mg 05/19/21 21:14 05/21/21 00:06 Trazodone Hcl 50 Mg Tablet PO 50 mg BEDTIME PRN Administration Insomnia Allergies Allergies Allergy/AdvReac Type Severity Reaction Status Date / Time No Known Allergies Allergy Verified 05/15/21 17:28 Assessment & Plan Assessment & Plan (1) Major depressive disorder with current active episode: Status: Acute Code(s): F32.9 - Major depressive disorder, single episode, unspecified Assessment and Plan: improved mood since admission, no longer suicidal. (2) Alcohol use disorder: Status: Acute Assessment and Plan: detoxed. no need for 4th dose of phenobarb. Assessment and Plan: 1. MDD - started wellbutrin XL 150 mg daily as of 05/20; increase to 300 mg daily as of 05/23. interested in med mgmt and psychotherapy at discharge. 2. AUD - detox completed. interested in campral. will start once stable on wellbutrin (planning for friday 05/25). 3. Dispo - pending. Greater than 50% of the session was spent on counseling and/or coordination of care Reason for contiued inpatient stay Substantial Risk for: harm to self
[2021-05-21 18:00] VITALS: BP 97/71; PULSE 88; RESP 18; TEMP 36.7
[2021-05-21 20:02] VITALS: BP 95/71; PULSE 84
[2021-05-22] MEDS: traZODone HCL 50 MG TABLET PO ×2 (00:38→22:24)
[2021-05-22 06:00] VITALS: BP 91/53; PULSE 85; RESP 16; TEMP 36.7; O2SAT 100
[2021-05-22] MEDS: Omeprazole 20 MG CAPSULE.DR PO (06:24)
[2021-05-22] MEDS: oxyCODONE HCl Immed Release 5 MG TABLET PO ×3 (06:29→18:31)
[2021-05-22] MEDS: Magnesium Oxide 400 MG TABLET PO ×2 (08:08→17:30)
[2021-05-22 08:09] VITALS: BP 91/53; PULSE 85
[2021-05-22] MEDS: Midodrine HCl 5 MG TABLET PO ×3 (08:09→21:06)
[2021-05-22] MEDS: Sodium Bicarbonate 650 MG TABLET PO ×2 (08:09→20:39)
[2021-05-22] MEDS: Pravastatin Sodium 10 MG TABLET PO (08:09)
[2021-05-22] MEDS: buPROPion HCl XL 150 MG TAB.ER.24H PO (08:09)
[2021-05-22] MEDS: Folic Acid 1 MG TABLET PO (08:09)
[2021-05-22] MEDS: Acetaminophen 325 MG TABLET 650 MG PO (08:10)
[2021-05-22] MEDS: Thiamine HCL 100 MG TABLET PO (08:10)
--- NOTE | 2021-05-22 12:28 | HO.PSYCHPN ---
Subjective Subjective Date of Service: 05/22/21 Reason For Visit: SI Interim History: pt c/o severe pain at her incision site not relieved by oxycodone. MD and pt agree to schedule ibuprofen 600 mg QID and T/C hospitalist consult if pain does not improve with ibuprofen. pt reports that otherwise she is feeling better, had a good talk with her daughter this morning and her mother last night. interested in rehab. no other complaints or requests. per staff, pt has been active, out of her room, attending groups. c/o 8/10 anxiety and 7/10 depression. wound open but no signs of infection. late rin the day RN reported she asked wound nurse to come look at the wound and wound nurse recommended a surgical consult. Mental Status Exam Mental Status Exam Narrative: appropriately dressed and groomed. bandage on right volar forearm. no PMA/PMR. cooperative with interview. speech nml in rate, amount, loudness. decr prosody. nml latency. thoughts linear and logical without paranoia or delusions. affect constricted, appropriate to context, normo-intense. no SI/HI/AVH expressed. Diagnostics Vital Signs (24Hr): Vital Signs - 24 hr 05/21/21 18:00 05/21/21 20:02 05/22/21 08:09 Temperature 98.0 F Pulse Rate 88 84 85 Respiratory Rate 18 Blood Pressure 97/71 95/71 91/53 L Body Mass Index 23.3 Medications Medications Current Medications Generic Name Dose Route Start Last Admin Trade Name Freq PRN Reason Stop Dose Admin Acetaminophen 650 mg 05/19/21 21:14 05/22/21 08:10 Acetaminophen 325 Mg Tablet PO 650 mg Q6H PRN Administration Pain, Mild (Pain Scale 1-3) Al Hydroxide/Mg Hydroxide 30 ml 05/19/21 21:14 Magnesium Hydrox/Alum Hydrox 30 Ml Oral.Susp PO Q6H PRN Heartburn/Nausea Bupropion HCl 300 mg 05/23/21 09:00 Bupropion Hcl Xl 300 Mg Tab.Er.24h PO DAILY [facility] Docusate Sodium 100 mg 05/19/21 21:14 Docusate Sodium 100 Mg Capsule PO DAILY PRN Constipation Folic Acid 1 mg 05/20/21 09:00 05/22/21 08:09 Folic Acid 1 Mg Tablet PO 1 mg DAILY [facility] Administration Hydroxyzine HCl 25 mg 05/19/21 21:14 05/19/21 22:31 Hydroxyzine Hcl 25 Mg Tablet PO 25 mg BEDTIME PRN Administration Anxiety Loperamide HCl 2 mg 05/19/21 21:14 Loperamide Hcl 2 Mg Capsule PO Q4H PRN Diarrhea Magnesium Hydroxide 30 ml 05/19/21 21:14 Milk Of Magnesia 30 Ml Oral.Susp PO DAILY PRN Constipation Magnesium Oxide 400 mg 05/20/21 08:30 05/22/21 08:08 Magnesium Oxide 400 Mg Tablet PO 400 mg BIDPC [facility] Administration Midodrine 5 mg 05/20/21 09:00 05/22/21 08:09 Midodrine Hcl 5 Mg Tablet PO 5 mg TID [facility] Administration Non-Formulary Medication 666 mg 05/25/21 09:00 Campral PO TID [facility] Omeprazole 20 mg 05/20/21 06:30 05/22/21 06:24 Omeprazole 20 Mg Capsule.Dr PO 20 mg DAILY@0630 [facility] Administration Ondansetron HCl 4 mg 05/19/21 21:14 Ondansetron Hcl 4 Mg/2 Ml Vial IVPUSH Q8H PRN Nausea and Vomiting Oxycodone HCl 5 mg 05/20/21 15:43 05/22/21 06:29 Oxycodone Hcl Immed Release 5 Mg Tablet PO 5 mg Q6H PRN Administration Pain, Severe (Pain Scale 7-10) Pravastatin Sodium 10 mg 05/20/21 09:00 05/22/21 08:09 Pravastatin Sodium 10 Mg Tablet PO 10 mg DAILY [facility] Administration Sodium Bicarbonate 650 mg 05/19/21 21:14 05/22/21 08:09 Sodium Bicarbonate 650 Mg Tablet PO 650 mg BID [facility] Administration Thiamine HCl 100 mg 05/20/21 09:00 05/22/21 08:10 Thiamine Hcl 100 Mg Tablet PO 100 mg DAILY [facility] Administration Trazodone HCl 50 mg 05/19/21 21:14 05/22/21 00:38 Trazodone Hcl 50 Mg Tablet PO 50 mg BEDTIME PRN Administration Insomnia Allergies Allergies Allergy/AdvReac Type Severity Reaction Status Date / Time No Known Allergies Allergy Verified 05/15/21 17:28 Assessment & Plan Assessment & Plan (1) Major depressive disorder with current active episode: Status: Acute Code(s): F32.9 - Major depressive disorder, single episode, unspecified Assessment and Plan: improved mood since admission, no longer suicidal. (2) Alcohol use disorder: Status: Acute Assessment and Plan: detoxed. no need for 4th dose of phenobarb. (3) Laceration of right forearm: Status: Acute Code(s): S51.811A - Laceration without foreign body of right forearm, initial encounter Assessment and Plan: wound care. surgical consult ordered as of 05/22 at the request of wound care nurse. Assessment and Plan: 1. MDD - started wellbutrin XL 150 mg daily as of 05/20; increase to 300 mg daily as of 05/23. interested in med mgmt and psychotherapy at discharge. 2. AUD - detox completed. interested in campral. will start once stable on wellbutrin (planning for friday 05/25). 3. wound - wound care nurse advising care. 05/22 she recommended surgical consult, which has been placed. 3. Dispo - pending. referrals to rehabs in place. Greater than 50% of the session was spent on counseling and/or coordination of care Reason for contiued inpatient stay Substantial Risk for: harm to self and rapid decompensation
[2021-05-22] MEDS: Ibuprofen 600 MG TABLET PO ×3 (13:12→20:39)
--- NOTE | 2021-05-22 13:48 | P.CONGS_ITS ---
History of Present Illness Consult details Consult date: 05/22/21 Narrative: 46-year-old female referred for wound check. She is known to me from the [facility]. She had been admitted last 05/16/2021 because of recent suicidal thoughts, with an attempted suicide attempt via a laceration the right wrist. She had an open wound as it had been more than 3 days after date of injury before she presented in the ER. I had recommended doing wound care daily with dry dressings at that time. She was eventually transferred to the psych unit as the patient stated that she was willing to go through detox and further treatment of her behavior health issues. I have been requested to go wound check. The patient says that she thought that the wound seemed to be a little ?dirty?. She describes persistent pain in the area. Dressing changes are being done with a foam dressing. Overall, the patient says she feels better mentally and says she wants to complete her treatment here in the psych unit. Review of Systems Constitutional: Constitutional: Denies chills and Denies fever(s) Cardiovascular: Cardiovascular: Denies chest pain, Denies dyspnea and Denies dyspnea on exertion Respiratory: Respiratory: Denies cough, Denies dyspnea and Denies dyspnea on exertion Gastrointestinal: Gastrointestinal: Denies hematochezia and Denies change in bowel habits Genitourinary: Genitourinary: Denies hematuria Musculoskeletal: Musculoskeletal: Denies back pain and Denies limited range of motion Neurologic: Denies focal weakness and Denies convulsions Psychiatric: Psychiatric: Denies depression and Denies mood swings PMFSH Past Medical History Medical History (Updated 05/22/21 @ 13:52 by Andrey Clements MD) Alcohol abuse GERD (gastroesophageal reflux disease) Hyperlipidemia Hypertension Open wound Social History Social History Household Members: Significant Other Household Members Other:: NA Housing: House Housing Other:: Significant other said, You need to get some help Do you presently have visiting nurse or other home services: No Alcohol intake: current Patient Tobacco Use Status: Current everyday Tobacco user Tobacco use type: Cigarette Cigarettes Per Day: 5 Years Smoked: 37 Smoked in Last 30 Days: Yes Patient Interested in Nicotine Replacement: No Patient Given Instructions on How to Stop Smoking: Yes Date Education Initiated: 05/19/21 Second Hand Smoke Exposure: No Use of substances other than those prescribed or required for medical reasons: Yes Substance Use Type: Marijuana Substance Use Type Other:: NA Substance Use Frequency: Occasionally Last Used Substance: Weeks (ago) Last Used Substance Other:: marijuana Currently Displaying Signs/Symptoms of Drug Intoxication Withdrawal: No Other Past Substance Use Problem:: NA Any prior treatment program specific to substance use: No Have you been hit, kicked, punched, or otherwise hurt by someone within the past year? If so, by whom?: No Do you feel safe in your current relationship?: Yes Is there a partner from a previous relationship who is making you feel unsafe now?: No Are you made to feel afraid or neglected: No Spiritual Healthcare Practices: NA Holiness Healthcare Practices: NA Cultural Healthcare Practices: NA Advance Directives: No Advance Directives Information Provided: No Advance Directives on File: No Do you have thoughts of harming others: None Do you have a plan to hurt others: No Plan Recently lost weight without trying: Yes How much weight loss: Unsure Eating poorly because of decreased appetite: No Nutrition screen score: 4 Nutrition Risks: No Nutritional Risk Patient : No : No Poor oral hygiene: No service: No Current occupational status: unemployed Sexual orientation: Did not discuss. Meds Allergies Allergy/AdvReac Type Severity Reaction Status Date / Time No Known Allergies Allergy Verified 05/15/21 17:28 Active Medications: Current Medications Generic Name Dose Route Start Last Admin Trade Name Freq PRN Reason Stop Dose Admin Acamprosate 666 mg 05/25/21 09:00 Acamprosate Calcium 333 Mg Tablet. PO TID [facility] Acetaminophen 650 mg 05/19/21 21:14 05/22/21 08:10 Acetaminophen 325 Mg Tablet PO 650 mg Q6H PRN Administration Pain, Mild (Pain Scale 1-3) Al Hydroxide/Mg Hydroxide 30 ml 05/19/21 21:14 Magnesium Hydrox/Alum Hydrox 30 Ml Oral.Susp PO Q6H PRN Heartburn/Nausea Bupropion HCl 300 mg 05/23/21 09:00 Bupropion Hcl Xl 300 Mg Tab.Er.24h PO DAILY [facility] Docusate Sodium 100 mg 05/19/21 21:14 Docusate Sodium 100 Mg Capsule PO DAILY PRN Constipation Folic Acid 1 mg 05/20/21 09:00 05/22/21 08:09 Folic Acid 1 Mg Tablet PO 1 mg DAILY [facility] Administration Hydroxyzine HCl 25 mg 05/19/21 21:14 05/19/21 22:31 Hydroxyzine Hcl 25 Mg Tablet PO 25 mg BEDTIME PRN Administration Anxiety Ibuprofen 600 mg 05/22/21 13:00 05/22/21 13:12 Ibuprofen 600 Mg Tablet PO 600 mg QID [facility] Administration Loperamide HCl 2 mg 05/19/21 21:14 Loperamide Hcl 2 Mg Capsule PO Q4H PRN Diarrhea Magnesium Hydroxide 30 ml 05/19/21 21:14 Milk Of Magnesia 30 Ml Oral.Susp PO DAILY PRN Constipation Magnesium Oxide 400 mg 05/20/21 08:30 05/22/21 08:08 Magnesium Oxide 400 Mg Tablet PO 400 mg BIDPC [facility] Administration Midodrine 5 mg 05/20/21 09:00 05/22/21 08:09 Midodrine Hcl 5 Mg Tablet PO 5 mg TID [facility] Administration Omeprazole 20 mg 05/20/21 06:30 05/22/21 06:24 Omeprazole 20 Mg Capsule.Dr PO 20 mg DAILY@0630 [facility] Administration Ondansetron HCl 4 mg 05/19/21 21:14 Ondansetron Hcl 4 Mg/2 Ml Vial IVPUSH Q8H PRN Nausea and Vomiting Oxycodone HCl 5 mg 05/20/21 15:43 05/22/21 12:29 Oxycodone Hcl Immed Release 5 Mg Tablet PO 5 mg Q6H PRN Administration Pain, Severe (Pain Scale 7-10) Pravastatin Sodium 10 mg 05/20/21 09:00 05/22/21 08:09 Pravastatin Sodium 10 Mg Tablet PO 10 mg DAILY [facility] Administration Sodium Bicarbonate 650 mg 05/19/21 21:14 05/22/21 08:09 Sodium Bicarbonate 650 Mg Tablet PO 650 mg BID [facility] Administration Thiamine HCl 100 mg 05/20/21 09:00 05/22/21 08:10 Thiamine Hcl 100 Mg Tablet PO 100 mg DAILY [facility] Administration Trazodone HCl 50 mg 05/19/21 21:14 05/22/21 00:38 Trazodone Hcl 50 Mg Tablet PO 50 mg BEDTIME PRN Administration Insomnia Home Medications Medication Instructions Recorded Confirmed Last Taken Type pantoprazole 40 mg tablet,delayed 40 mg PO DAILY 05/15/21 05/15/21 Unknown History release pravastatin 10 mg tablet 10 mg PO DAILY 05/15/21 05/15/21 Unknown History Physical Exam Vital Signs: Vital Signs: Last Vital Signs Temp 98.0 F 05/22/21 06:00 Pulse 85 05/22/21 08:09 Resp 16 05/22/21 06:00 BP 91/53 L 05/22/21 08:09 Pulse Ox 100 05/22/21 06:00 Body Mass Index 23.3 Const: Other: Does not appear depressed General: comfortable and no acute distress Resp: Effort & Inspection: normal respiratory effort Cardio: Rate: regular rate Extrem: Other: Right wrist - open wound, clean, about 3 cm long, with skin separation about 2 cm, no pus, some redness on the edges of the skin, no cellulitis , no necrotic tissue Results Labs Labs: All other labs normal. Assessment and Plan (1) Open wound: Status: Acute This is from a recent laceration, self-inflicted. The wound was left open as it had been at least 3 days after injury before she presented. I had gently debrided the wound bluntly with a gauze. I covered the wound with a dry dressing and wrapped this with a Josiane. I would continue with the same daily wound care for now. The wound can be gently cleaned with normal saline. I would allow the wound to heal by secondary intention. I will see her again for wound check while she is here and the psych unit. The above was discussed with the nursing staff. Procedures Date of Service Date of Service: 05/22/21
[2021-05-22 18:00] VITALS: BP 95/54; PULSE 61; RESP 18; TEMP 36.6; O2SAT 95
[2021-05-22 21:06] VITALS: BP 119/75; PULSE 85
[2021-05-23] MEDS: oxyCODONE HCl Immed Release 5 MG TABLET PO ×4 (01:14→18:38)
[2021-05-23] MEDS: traZODone HCL 50 MG TABLET PO ×2 (01:15→22:21)
[2021-05-23] MEDS: Acetaminophen 325 MG TABLET 650 MG PO ×4 (01:15→21:03)
[2021-05-23] MEDS: Omeprazole 20 MG CAPSULE.DR PO (06:16)
--- NOTE | 2021-05-23 07:22 | HO.PSYCHPN ---
Subjective Subjective Date of Service: 05/25/21 Reason For Visit: SI Interim History: pt continues to c/o severe pain at her incision site not relieved by oxycodone. Pt reports in terms of mood she is less depressed. she is future oriented in that she wants to continue tx for alcohol use. She adamantly denies Si/HI. she reports sleeping fairly well but woken up but pain. She has been visible in the unit, she is attending every groups. She reports having supportive family. Medication Compliance: Yes Side effects from medications: No Review of Systems Constitutional: Denies chills and Denies fever(s) Cardiovascular: Denies chest pain, Denies dyspnea and Denies dyspnea on exertion Respiratory: Denies cough, Denies dyspnea and Denies dyspnea on exertion Gastrointestinal: Denies hematochezia and Denies change in bowel habits Musculoskeletal: Denies back pain and Denies limited range of motion Denies focal weakness and Denies convulsions Psychiatric: Denies depression and Denies mood swings Mental Status Exam Mental Status Exam Narrative: appropriately dressed and groomed. bandage on right volar forearm. no PMA/PMR. cooperative with interview. speech nml in rate, amount, loudness. decr prosody. nml latency. thoughts linear and logical without paranoia or delusions. affect constricted, appropriate to context, normo-intense. no SI/HI/AVH expressed. Diagnostics Vital Signs (24Hr): Vital Signs - 24 hr 05/24/21 08:03 05/24/21 14:05 05/24/21 18:00 Temperature 97.1 F Pulse Rate 76 76 81 Respiratory Rate 18 Blood Pressure 103/65 103/65 132/87 Pulse Oximetry 99 05/24/21 20:45 Temperature Pulse Rate 81 Respiratory Rate Blood Pressure 132/87 Pulse Oximetry Body Mass Index 23.3 Medications Medications Current Medications Generic Name Dose Route Start Last Admin Trade Name Freq PRN Reason Stop Dose Admin Acamprosate 666 mg 05/25/21 09:00 Acamprosate Calcium 333 Mg Tablet. PO TID [facility] Acetaminophen 650 mg 05/19/21 21:14 05/25/21 06:13 Acetaminophen 325 Mg Tablet PO 650 mg Q6H PRN Administration Pain, Mild (Pain Scale 1-3) Al Hydroxide/Mg Hydroxide 30 ml 05/19/21 21:14 Magnesium Hydrox/Alum Hydrox 30 Ml Oral.Susp PO Q6H PRN Heartburn/Nausea Bupropion HCl 300 mg 05/23/21 09:00 05/24/21 08:03 Bupropion Hcl Xl 300 Mg Tab.Er.24h PO 300 mg DAILY [facility] Administration Docusate Sodium 100 mg 05/19/21 21:14 Docusate Sodium 100 Mg Capsule PO DAILY PRN Constipation Folic Acid 1 mg 05/20/21 09:00 05/24/21 08:01 Folic Acid 1 Mg Tablet PO 1 mg DAILY [facility] Administration Hydroxyzine HCl 25 mg 05/19/21 21:14 05/24/21 22:32 Hydroxyzine Hcl 25 Mg Tablet PO 25 mg BEDTIME PRN Administration Anxiety Ibuprofen 600 mg 05/22/21 13:00 05/24/21 20:46 Ibuprofen 600 Mg Tablet PO 600 mg QID [facility] Administration Loperamide HCl 2 mg 05/19/21 21:14 Loperamide Hcl 2 Mg Capsule PO Q4H PRN Diarrhea Magnesium Hydroxide 30 ml 05/19/21 21:14 Milk Of Magnesia 30 Ml Oral.Susp PO DAILY PRN Constipation Magnesium Oxide 400 mg 05/20/21 08:30 05/24/21 17:33 Magnesium Oxide 400 Mg Tablet PO 400 mg BIDPC [facility] Administration Midodrine 5 mg 05/20/21 09:00 05/24/21 20:45 Midodrine Hcl 5 Mg Tablet PO 5 mg TID [facility] Administration Omeprazole 20 mg 05/20/21 06:30 05/25/21 06:13 Omeprazole 20 Mg Capsule.Dr PO 20 mg DAILY@0630 [facility] Administration Ondansetron HCl 4 mg 05/19/21 21:14 Ondansetron Hcl 4 Mg/2 Ml Vial IVPUSH Q8H PRN Nausea and Vomiting Oxycodone HCl 5 mg 05/20/21 15:43 05/25/21 06:27 Oxycodone Hcl Immed Release 5 Mg Tablet PO 5 mg Q6H PRN Administration Pain, Severe (Pain Scale 7-10) Pravastatin Sodium 10 mg 05/20/21 09:00 05/24/21 08:03 Pravastatin Sodium 10 Mg Tablet PO 10 mg DAILY [facility] Administration Sodium Bicarbonate 650 mg 05/19/21 21:14 05/24/21 20:47 Sodium Bicarbonate 650 Mg Tablet PO 650 mg BID [facility] Administration Thiamine HCl 100 mg 05/20/21 09:00 05/24/21 08:01 Thiamine Hcl 100 Mg Tablet PO 100 mg DAILY [facility] Administration Trazodone HCl 50 mg 05/19/21 21:14 05/25/21 01:03 Trazodone Hcl 50 Mg Tablet PO 50 mg BEDTIME PRN Administration Insomnia Allergies Allergies Allergy/AdvReac Type Severity Reaction Status Date / Time No Known Allergies Allergy Verified 05/15/21 17:28 Assessment & Plan Assessment & Plan (1) Open wound: Status: Acute Code(s): T14.8XXA - Other injury of unspecified body region, initial encounter Assessment and Plan: This is from a recent laceration, self-inflicted. The wound was left open as it had been at least 3 days after injury before she presented. I had gently debrided the wound bluntly with a gauze. I covered the wound with a dry dressing and wrapped this with a Josiane. I would continue with the same daily wound care for now. The wound can be gently cleaned with normal saline. I would allow the wound to heal by secondary intention. I will see her again for wound check while she is here and the psych unit. The above was discussed with the nursing staff. Greater than 50% of the session was spent on counseling and/or coordination of care Reason for contiued inpatient stay Substantial Risk for: harm to self
[2021-05-23 08:29] VITALS: BP 102/59; PULSE 84
[2021-05-23] MEDS: Sodium Bicarbonate 650 MG TABLET PO ×2 (08:29→20:10)
[2021-05-23] MEDS: Midodrine HCl 5 MG TABLET PO ×3 (08:29→20:08)
[2021-05-23] MEDS: Pravastatin Sodium 10 MG TABLET PO (08:29)
[2021-05-23] MEDS: Ibuprofen 600 MG TABLET PO ×4 (08:29→20:09)
[2021-05-23] MEDS: Magnesium Oxide 400 MG TABLET PO ×2 (08:30→17:52)
[2021-05-23] MEDS: Thiamine HCL 100 MG TABLET PO (08:30)
[2021-05-23] MEDS: Folic Acid 1 MG TABLET PO (08:30)
[2021-05-23] MEDS: buPROPion HCl XL 300 MG TAB.ER.24H PO (08:30)
[2021-05-23 08:33] VITALS: BP 102/59; PULSE 84; RESP 16; TEMP 36.3; O2SAT 100
[2021-05-23 15:16] VITALS: BP 99/57; PULSE 84
[2021-05-23 18:00] VITALS: BP 118/71; PULSE 81; RESP 18; TEMP 36.3; O2SAT 100
[2021-05-23 20:08] VITALS: BP 118/71; PULSE 81
[2021-05-24] MEDS: traZODone HCL 50 MG TABLET PO ×2 (00:49→22:33)
[2021-05-24] MEDS: hydrOXYzine HCL 25 MG TABLET PO ×2 (00:49→22:32)
[2021-05-24] MEDS: oxyCODONE HCl Immed Release 5 MG TABLET PO ×4 (00:49→20:46)
[2021-05-24 06:00] VITALS: BP 103/65; PULSE 76; RESP 16; TEMP 36.5; O2SAT 100
[2021-05-24] MEDS: Omeprazole 20 MG CAPSULE.DR PO (07:21)
--- NOTE | 2021-05-24 07:24 | HO.PSYCHPN ---
Subjective Subjective Date of Service: 05/25/21 Reason For Visit: SI Interim History: pt continues to c/o severe pain at her incision site not relieved by oxycodone. Pt reports in terms of mood she is less depressed. she is future oriented in that she wants to continue tx for alcohol use. She adamantly denies Si/HI. she reports sleeping fairly well but woken up but pain. She has been visible in the unit, she is attending every groups. She reports having supportive family. Review of Systems Constitutional: Denies chills and Denies fever(s) Cardiovascular: Denies chest pain, Denies dyspnea and Denies dyspnea on exertion Respiratory: Denies cough, Denies dyspnea and Denies dyspnea on exertion Gastrointestinal: Denies hematochezia and Denies change in bowel habits Musculoskeletal: Denies back pain and Denies limited range of motion Denies focal weakness and Denies convulsions Psychiatric: Denies depression and Denies mood swings Mental Status Exam Mental Status Exam Narrative: appropriately dressed and groomed. bandage on right volar forearm. no PMA/PMR. cooperative with interview. speech nml in rate, amount, loudness. decr prosody. nml latency. thoughts linear and logical without paranoia or delusions. affect constricted, appropriate to context, normo-intense. no SI/HI/AVH expressed. Diagnostics Vital Signs (24Hr): Vital Signs - 24 hr 05/24/21 08:03 05/24/21 14:05 05/24/21 18:00 Temperature 97.1 F Pulse Rate 76 76 81 Respiratory Rate 18 Blood Pressure 103/65 103/65 132/87 Pulse Oximetry 99 05/24/21 20:45 Temperature Pulse Rate 81 Respiratory Rate Blood Pressure 132/87 Pulse Oximetry Body Mass Index 23.3 Medications Medications Current Medications Generic Name Dose Route Start Last Admin Trade Name Freq PRN Reason Stop Dose Admin Acamprosate 666 mg 05/25/21 09:00 Acamprosate Calcium 333 Mg Tablet. PO TID PERLITA Acetaminophen 650 mg 05/19/21 21:14 05/25/21 06:13 Acetaminophen 325 Mg Tablet PO 650 mg Q6H PRN Administration Pain, Mild (Pain Scale 1-3) Al Hydroxide/Mg Hydroxide 30 ml 05/19/21 21:14 Magnesium Hydrox/Alum Hydrox 30 Ml Oral.Susp PO Q6H PRN Heartburn/Nausea Bupropion HCl 300 mg 05/23/21 09:00 05/24/21 08:03 Bupropion Hcl Xl 300 Mg Tab.Er.24h PO 300 mg DAILY PERLITA Administration Docusate Sodium 100 mg 05/19/21 21:14 Docusate Sodium 100 Mg Capsule PO DAILY PRN Constipation Folic Acid 1 mg 05/20/21 09:00 05/24/21 08:01 Folic Acid 1 Mg Tablet PO 1 mg DAILY PERLITA Administration Hydroxyzine HCl 25 mg 05/19/21 21:14 05/24/21 22:32 Hydroxyzine Hcl 25 Mg Tablet PO 25 mg BEDTIME PRN Administration Anxiety Ibuprofen 600 mg 05/22/21 13:00 05/24/21 20:46 Ibuprofen 600 Mg Tablet PO 600 mg QID PERLITA Administration Loperamide HCl 2 mg 05/19/21 21:14 Loperamide Hcl 2 Mg Capsule PO Q4H PRN Diarrhea Magnesium Hydroxide 30 ml 05/19/21 21:14 Milk Of Magnesia 30 Ml Oral.Susp PO DAILY PRN Constipation Magnesium Oxide 400 mg 05/20/21 08:30 05/24/21 17:33 Magnesium Oxide 400 Mg Tablet PO 400 mg BIDPC [facility] Administration Midodrine 5 mg 05/20/21 09:00 05/24/21 20:45 Midodrine Hcl 5 Mg Tablet PO 5 mg TID PERLITA Administration Omeprazole 20 mg 05/20/21 06:30 05/25/21 06:13 Omeprazole 20 Mg Capsule.Dr PO 20 mg DAILY@0630 [facility] Administration Ondansetron HCl 4 mg 05/19/21 21:14 Ondansetron Hcl 4 Mg/2 Ml Vial IVPUSH Q8H PRN Nausea and Vomiting Oxycodone HCl 5 mg 05/20/21 15:43 05/25/21 06:27 Oxycodone Hcl Immed Release 5 Mg Tablet PO 5 mg Q6H PRN Administration Pain, Severe (Pain Scale 7-10) Pravastatin Sodium 10 mg 05/20/21 09:00 05/24/21 08:03 Pravastatin Sodium 10 Mg Tablet PO 10 mg DAILY PERL[facility] Administration Sodium Bicarbonate 650 mg 05/19/21 21:14 05/24/21 20:47 Sodium Bicarbonate 650 Mg Tablet PO 650 mg BID PERLITA Administration Thiamine HCl 100 mg 05/20/21 09:00 05/24/21 08:01 Thiamine Hcl 100 Mg Tablet PO 100 mg DAILY [facility] Administration Trazodone HCl 50 mg 05/19/21 21:14 05/25/21 01:03 Trazodone Hcl 50 Mg Tablet PO 50 mg BEDTIME PRN Administration Insomnia Allergies Allergies Allergy/AdvReac Type Severity Reaction Status Date / Time No Known Allergies Allergy Verified 05/15/21 17:28 Assessment & Plan Assessment & Plan (1) Open wound: Status: Acute Code(s): T14.8XXA - Other injury of unspecified body region, initial encounter Assessment and Plan: This is from a recent laceration, self-inflicted. The wound was left open as it had been at least 3 days after injury before she presented. I had gently debrided the wound bluntly with a gauze. I covered the wound with a dry dressing and wrapped this with a Josiane. I would continue with the same daily wound care for now. The wound can be gently cleaned with normal saline. I would allow the wound to heal by secondary intention. I will see her again for wound check while she is here and the psych unit. The above was discussed with the nursing staff. Greater than 50% of the session was spent on counseling and/or coordination of care Reason for contiued inpatient stay Substantial Risk for: harm to self
[2021-05-24] MEDS: Thiamine HCL 100 MG TABLET PO (08:01)
[2021-05-24] MEDS: Sodium Bicarbonate 650 MG TABLET PO ×2 (08:01→20:47)
[2021-05-24] MEDS: Folic Acid 1 MG TABLET PO (08:01)
[2021-05-24] MEDS: Magnesium Oxide 400 MG TABLET PO ×2 (08:02→17:33)
[2021-05-24] MEDS: Acetaminophen 325 MG TABLET 650 MG PO ×3 (08:02→22:32)
[2021-05-24 08:03] VITALS: BP 103/65; PULSE 76
[2021-05-24] MEDS: Pravastatin Sodium 10 MG TABLET PO (08:03)
[2021-05-24] MEDS: Ibuprofen 600 MG TABLET PO ×4 (08:03→20:46)
[2021-05-24] MEDS: Midodrine HCl 5 MG TABLET PO ×3 (08:03→20:45)
[2021-05-24] MEDS: buPROPion HCl XL 300 MG TAB.ER.24H PO (08:03)
--- NOTE | 2021-05-24 10:09 | PC.NURSE ---
Pt displaying pitting 3+ bilateral pedal and knee edema, skin warm to touch. Pt reports no prior hx of edema. R wrist lac DSD changed, wound yellow, green discharge, edges red and edematous, warm to touch. C/o constant 10/10 pain, little relief with tylenol, motrin, and oxycodone. Rowan Blum NP notified, routine hospitalist consult ordered. Dr. Solomon notified of consult at 0953, reported that the wrist lac will be deferred to surgery, and someone will not be able to see pt for the edema until tomorrow. Rowan Blum. notified of this.
[2021-05-24 14:05] VITALS: BP 103/65; PULSE 76
[2021-05-24 18:00] VITALS: BP 132/87; PULSE 81; RESP 18; TEMP 36.2; O2SAT 99
[2021-05-24 20:45] VITALS: BP 132/87; PULSE 81
[2021-05-25] MEDS: traZODone HCL 50 MG TABLET PO ×2 (01:03→22:37)
[2021-05-25] MEDS: oxyCODONE HCl Immed Release 5 MG TABLET PO ×5 (01:12→20:53)
[2021-05-25 06:00] VITALS: BP 109/53; PULSE 77; RESP 20; TEMP 36.6; O2SAT 94
[2021-05-25] MEDS: Omeprazole 20 MG CAPSULE.DR PO (06:13)
[2021-05-25] MEDS: Acetaminophen 325 MG TABLET 650 MG PO ×2 (06:13→14:24)
[2021-05-25] MEDS: Pravastatin Sodium 10 MG TABLET PO (08:10)
[2021-05-25] MEDS: Ibuprofen 600 MG TABLET PO ×4 (08:10→20:53)
[2021-05-25] MEDS: Sodium Bicarbonate 650 MG TABLET PO ×2 (08:10→20:53)
[2021-05-25] MEDS: buPROPion HCl XL 300 MG TAB.ER.24H PO (08:10)
[2021-05-25] MEDS: Magnesium Oxide 400 MG TABLET PO ×2 (08:10→16:37)
[2021-05-25] MEDS: Thiamine HCL 100 MG TABLET PO (08:10)
[2021-05-25 08:11] VITALS: BP 109/53; PULSE 77
[2021-05-25] MEDS: Folic Acid 1 MG TABLET PO (08:11)
[2021-05-25] MEDS: Midodrine HCl 5 MG TABLET PO ×3 (08:11→20:53)
[2021-05-25] MEDS: Acamprosate Calcium 333 MG TABLET.DR 666 MG PO ×3 (10:57→20:52)
--- NOTE | 2021-05-25 12:49 | PM.PNGS ---
Subjective Subjective Date of Service: 05/25/21 Interval history: Denies new complaints Says she is determined to undergo treatment for behavior issues and for alcohol abuse Physical Exam Vital Signs: Vital Signs: Last Vital Signs Temp 97.9 F 05/25/21 06:00 Pulse 77 05/25/21 08:11 Resp 20 05/25/21 06:00 BP 109/53 L 05/25/21 08:11 Pulse Ox 94 05/25/21 06:00 Body Mass Index 23.3 Const: Other: Looks well, good mood General: comfortable and no acute distress Resp: Effort & Inspection: normal respiratory effort Extrem: Other: Right wrist laceration with some fibrinous X 2 days, mild erythema otherwise granulating well; surface area slowly decreasing in size Procedures Date of Service Date of Service: 05/25/21 Progress Note: A&P Assessment and plan (1) Laceration of right forearm: Status: Acute Assessment and Plan: She has an open wound I bluntly debrided this to remove fibrinous debris I applied fresh dressings and wrapped this with a short Josiane roll Continue the same wound care Allow healing by secondary intention Fall Risk Details Current Medications: Current Medications Generic Name Dose Route Start Last Admin Trade Name Freq PRN Reason Stop Dose Admin Acamprosate 666 mg 05/25/21 09:00 05/25/21 10:57 Acamprosate Calcium 333 Mg Tablet. PO 666 mg TID PERLITA Administration Acetaminophen 650 mg 05/19/21 21:14 05/25/21 06:13 Acetaminophen 325 Mg Tablet PO 650 mg Q6H PRN Administration Pain, Mild (Pain Scale 1-3) Al Hydroxide/Mg Hydroxide 30 ml 05/19/21 21:14 Magnesium Hydrox/Alum Hydrox 30 Ml Oral.Susp PO Q6H PRN Heartburn/Nausea Bupropion HCl 300 mg 05/23/21 09:00 05/25/21 08:10 Bupropion Hcl Xl 300 Mg Tab.Er.24h PO 300 mg DAILY [facility] Administration Docusate Sodium 100 mg 05/19/21 21:14 Docusate Sodium 100 Mg Capsule PO DAILY PRN Constipation Folic Acid 1 mg 05/20/21 09:00 05/25/21 08:11 Folic Acid 1 Mg Tablet PO 1 mg DAILY [facility] Administration Hydroxyzine HCl 25 mg 05/19/21 21:14 05/24/21 22:32 Hydroxyzine Hcl 25 Mg Tablet PO 25 mg BEDTIME PRN Administration Anxiety Ibuprofen 600 mg 05/22/21 13:00 05/25/21 08:10 Ibuprofen 600 Mg Tablet PO 600 mg QID PERLITA Administration Loperamide HCl 2 mg 05/19/21 21:14 Loperamide Hcl 2 Mg Capsule PO Q4H PRN Diarrhea Magnesium Hydroxide 30 ml 05/19/21 21:14 Milk Of Magnesia 30 Ml Oral.Susp PO DAILY PRN Constipation Magnesium Oxide 400 mg 05/20/21 08:30 05/25/21 08:10 Magnesium Oxide 400 Mg Tablet PO 400 mg BIDPC [facility] Administration Midodrine 5 mg 05/20/21 09:00 05/25/21 08:11 Midodrine Hcl 5 Mg Tablet PO 5 mg TID PERLITA Administration Omeprazole 20 mg 05/20/21 06:30 05/25/21 06:13 Omeprazole 20 Mg Capsule.Dr PO 20 mg DAILY@0630 [facility] Administration Ondansetron HCl 4 mg 05/19/21 21:14 Ondansetron Hcl 4 Mg/2 Ml Vial IVPUSH Q8H PRN Nausea and Vomiting Oxycodone HCl 5 mg 05/25/21 12:35 Oxycodone Hcl Immed Release 5 Mg Tablet PO Q4H PRN Pain, Severe (Pain Scale 7-10) Pravastatin Sodium 10 mg 05/20/21 09:00 05/25/21 08:10 Pravastatin Sodium 10 Mg Tablet PO 10 mg DAILY PER[facility] Administration Sodium Bicarbonate 650 mg 05/19/21 21:14 05/25/21 08:10 Sodium Bicarbonate 650 Mg Tablet PO 650 mg BID PERLITA Administration Thiamine HCl 100 mg 05/20/21 09:00 05/25/21 08:10 Thiamine Hcl 100 Mg Tablet PO 100 mg DAILY [facility] Administration Trazodone HCl 50 mg 05/19/21 21:14 05/25/21 01:03 Trazodone Hcl 50 Mg Tablet PO 50 mg BEDTIME PRN Administration Insomnia Time Spent With Patient Time: Total time spent is greater than 50% in coordination of care (as documented) at patient's floor/unit and/or counseling patient: Time with patient: 15 - 24 minutes Quality Stroke Does the patient have a stroke diagnosis?: No VTE Prior VTE?: No VTE Risk Level:: Medical - low VTE Device Contraindication: Treatment Not Indicated VTE Drug Contraindication: Treatment Not Indicated
--- NOTE | 2021-05-25 16:20 | P.PNPSI_ITS ---
Subjective Subjective Date of Service: 05/25/21 Reason For Visit: SI Interim History: c/o pain at incision site. surgeon saw her tuesday and re- dressed the wound, allowing it to breathe. surgeon to come see her again today. hospitalist also coming to see her about edema. otherwise her motivation and future orientation remain in place, just taking a real backseat to the pain. MD agrees to increase frequency of oxycodone to Q4H PRN rather than Q6H. also consulted hospitalist on the pain mgmt subject, hospitalist to see pt today to address. per staff, pt visible in the milieu and attending groups. dep 03/12. margaret anxiety up. pain 07/12. no SI/HI. Mental Status Exam Mental Status Exam Narrative: appropriately dressed and groomed. bandage on right volar forearm. no PMA/PMR. cooperative with interview. speech nml in rate, amount, loudness. decr prosody. nml latency. thoughts linear and logical without paranoia or delusions. affect constricted, appropriate to context, normo-intense. no SI/HI/AVH expressed. Diagnostics Vital Signs (24Hr): Vital Signs - 24 hr 05/24/21 18:00 05/24/21 20:45 05/25/21 06:00 Temperature 97.1 F 97.9 F Pulse Rate 81 81 77 Respiratory Rate 18 20 Blood Pressure 132/87 132/87 109/53 L Pulse Oximetry 99 94 05/25/21 08:11 Temperature Pulse Rate 77 Respiratory Rate Blood Pressure 109/53 L Pulse Oximetry Body Mass Index 23.3 Medications Medications Current Medications Generic Name Dose Route Start Last Admin Trade Name Freq PRN Reason Stop Dose Admin Acamprosate 666 mg 05/25/21 09:00 05/25/21 10:57 Acamprosate Calcium 333 Mg Tablet. PO 666 mg TID PERLITA Administration Acetaminophen 650 mg 05/19/21 21:14 05/25/21 14:24 Acetaminophen 325 Mg Tablet PO 650 mg Q6H PRN Administration Pain, Mild (Pain Scale 1-3) Al Hydroxide/Mg Hydroxide 30 ml 05/19/21 21:14 Magnesium Hydrox/Alum Hydrox 30 Ml Oral.Susp PO Q6H PRN Heartburn/Nausea Bupropion HCl 300 mg 05/23/21 09:00 05/25/21 08:10 Bupropion Hcl Xl 300 Mg Tab.Er.24h PO 300 mg DAILY PER[facility] Administration Docusate Sodium 100 mg 05/19/21 21:14 Docusate Sodium 100 Mg Capsule PO DAILY PRN Constipation Folic Acid 1 mg 05/20/21 09:00 05/25/21 08:11 Folic Acid 1 Mg Tablet PO 1 mg DAILY PERLITA Administration Hydroxyzine HCl 25 mg 05/19/21 21:14 05/24/21 22:32 Hydroxyzine Hcl 25 Mg Tablet PO 25 mg BEDTIME PRN Administration Anxiety Ibuprofen 600 mg 05/22/21 13:00 05/25/21 12:45 Ibuprofen 600 Mg Tablet PO 600 mg QID PERLITA Administration Loperamide HCl 2 mg 05/19/21 21:14 Loperamide Hcl 2 Mg Capsule PO Q4H PRN Diarrhea Magnesium Hydroxide 30 ml 05/19/21 21:14 Milk Of Magnesia 30 Ml Oral.Susp PO DAILY PRN Constipation Magnesium Oxide 400 mg 05/20/21 08:30 05/25/21 08:10 Magnesium Oxide 400 Mg Tablet PO 400 mg BIDPC [facility] Administration Midodrine 5 mg 05/20/21 09:00 05/25/21 08:11 Midodrine Hcl 5 Mg Tablet PO 5 mg TID PERLITA Administration Omeprazole 20 mg 05/20/21 06:30 05/25/21 06:13 Omeprazole 20 Mg Capsule.Dr PO 20 mg DAILY@0630 [facility] Administration Ondansetron HCl 4 mg 05/19/21 21:14 Ondansetron Hcl 4 Mg/2 Ml Vial IVPUSH Q8H PRN Nausea and Vomiting Oxycodone HCl 5 mg 05/25/21 12:35 05/25/21 12:45 Oxycodone Hcl Immed Release 5 Mg Tablet PO 5 mg Q4H PRN Administration Pain, Severe (Pain Scale 7-10) Pravastatin Sodium 10 mg 05/20/21 09:00 05/25/21 08:10 Pravastatin Sodium 10 Mg Tablet PO 10 mg DAILY PERLITA Administration Sodium Bicarbonate 650 mg 05/19/21 21:14 05/25/21 08:10 Sodium Bicarbonate 650 Mg Tablet PO 650 mg BID PERLITA Administration Thiamine HCl 100 mg 05/20/21 09:00 05/25/21 08:10 Thiamine Hcl 100 Mg Tablet PO 100 mg DAILY PERLITA Administration Trazodone HCl 50 mg 05/19/21 21:14 05/25/21 01:03 Trazodone Hcl 50 Mg Tablet PO 50 mg BEDTIME PRN Administration Insomnia Allergies Allergies Allergy/AdvReac Type Severity Reaction Status Date / Time No Known Allergies Allergy Verified 05/15/21 17:28 Assessment & Plan Assessment & Plan (1) Laceration of right forearm: Status: Acute Code(s): S51.811A - Laceration without foreign body of right forearm, initial encounter Assessment and Plan: being seen by surgery and hospitalist for mgmt of healing and pain (2) Major depressive disorder with current active episode: Status: Acute Code(s): F32.9 - Major depressive disorder, single episode, unspecified Assessment and Plan: continue current mgmt (3) Alcohol use disorder: Status: Acute Assessment and Plan: detoxed. planning for rehab. Greater than 50% of the session was spent on counseling and/or coordination of care Reason for contiued inpatient stay Substantial Risk for: rapid decompensation
--- NOTE | 2021-05-25 17:16 | PM.EVENT ---
Event Note Date of Service: 05/25/21 Event Note: Event Note: 37 year? old women admitted to [facility]. She had complaints of pain and swelling to both of her lower extremities since last week. She denied trauma or injury. No noted fever noted +2-3 bilateral pitting edema from knee to foot no oozing, erythema noted Rec: Bilat venous duplex us to r/o dvt Gabriel stockings to help alleviate swelling avoid foods high in sodium BNP, BMP
[2021-05-25 18:01] LABS: Alanine Aminotransferase 11 U/L (0-31); Albumin Level 3.5 g/dL (3.5-5.0); Alkaline Phosphatase 82 U/L (39-117); Anion Gap 12 (12-20); Aspartate Amino Transferase 16 U/L (5-31); Bilirubin Direct < 0.2 mg/dL (0.0-0.5); Bilirubin Total < 0.2 mg/dL (0.0-1.0); Blood Urea Nitrogen 5 mg/dL (9-16); Calcium 8.8 mg/dL (8.4-10.2); Carbon Dioxide 26 mmol/L (22-29); Chloride 108 mmol/L (96-108); Creatinine Clr Calc Pharmacy 85.1; Estimated Glomerular Filt Rate > 60; Glucose Random 97 mg/dL (60-115); Magnesium 2.2 mg/dL (1.6-2.6); Potassium 4.6 mmol/L (3.3-5.1); Sodium 141 mmol/L (135-145); Total Protein 5.4 g/dL (6.5-8.0)
[2021-05-25 18:02] LABS: B Type Natriuretic Peptide 195 pg/mL (<100)
[2021-05-25 20:46] VITALS: BP 138/79; PULSE 84; RESP 18; TEMP 36.6; O2SAT 100
[2021-05-25 20:53] VITALS: BP 138/79; PULSE 84
[2021-05-25] MEDS: hydrOXYzine HCL 25 MG TABLET PO (22:37)
[2021-05-26] MEDS: traZODone HCL 50 MG TABLET PO ×2 (00:35→21:54)
[2021-05-26] MEDS: Acetaminophen 325 MG TABLET 650 MG PO ×3 (00:35→12:33)
[2021-05-26] MEDS: oxyCODONE HCl Immed Release 5 MG TABLET PO ×3 (00:53→10:17)
[2021-05-26 06:00] VITALS: BP 101/66; PULSE 81; RESP 20; TEMP 36.6; O2SAT 100
[2021-05-26] MEDS: Omeprazole 20 MG CAPSULE.DR PO (06:14)
[2021-05-26] MEDS: Thiamine HCL 100 MG TABLET PO (08:00)
[2021-05-26] MEDS: Ibuprofen 600 MG TABLET PO ×4 (08:00→21:18)
[2021-05-26] MEDS: Folic Acid 1 MG TABLET PO (08:00)
[2021-05-26] MEDS: buPROPion HCl XL 300 MG TAB.ER.24H PO (08:00)
[2021-05-26 08:01] VITALS: BP 101/66; PULSE 81
[2021-05-26] MEDS: Sodium Bicarbonate 650 MG TABLET PO ×2 (08:01→21:54)
[2021-05-26] MEDS: Pravastatin Sodium 10 MG TABLET PO (08:01)
[2021-05-26] MEDS: Magnesium Oxide 400 MG TABLET PO ×2 (08:01→18:08)
[2021-05-26] MEDS: Midodrine HCl 5 MG TABLET PO ×3 (08:01→21:54)
[2021-05-26] MEDS: Acamprosate Calcium 333 MG TABLET.DR 666 MG PO ×3 (08:01→21:53)
[2021-05-26] MEDS: oxyCODONE HCl Immed Release 5 MG TABLET 10 MG PO ×2 (14:50→21:52)
--- NOTE | 2021-05-26 16:43 | P.PNPSI_ITS ---
Subjective Subjective Date of Service: 05/27/21 Reason For Visit: SI Interim History: pt reports pain continues to be ill-controlled. surgery to return tomorrow ro review incision site progress. per staff, pain mgmt inadequate. hospitalists ordered substantial w/u for her. Mental Status Exam Mental Status Exam Narrative: appropriately dressed and groomed. bandage on right volar forearm. no PMA/PMR. cooperative with interview. speech nml in rate, amount, loudness. decr prosody. nml latency. thoughts linear and logical without paranoia or delusions. affect constricted, appropriate to context, normo-intense. no SI/HI/AVH expressed. Diagnostics Vital Signs (24Hr): Vital Signs - 24 hr 05/26/21 18:00 05/26/21 21:54 05/27/21 08:30 Temperature 97.2 F 98.1 F Pulse Rate 78 88 81 Respiratory Rate 18 16 Blood Pressure 121/66 127/82 111/65 Pulse Oximetry 100 98 05/27/21 08:58 05/27/21 16:27 Temperature Pulse Rate 81 75 Respiratory Rate Blood Pressure 111/65 120/67 Pulse Oximetry Body Mass Index 23.3 Labs Results: 05/25/21 17:21 Labs: Laboratory Results - last 48 hr 05/25/21 05/25/21 17:21 17:21 Sodium 141 Potassium 4.6 Chloride 108 Carbon Dioxide 26 Anion Gap 12 BUN 5 L D Creatinine 0.61 Estim Creat Clear Calc 85.1 Estimated GFR > 60 Random Glucose 97 Calcium 8.8 D Magnesium 2.2 Total Bilirubin < 0.2 Direct Bilirubin < 0.2 AST 16 ALT 11 Alkaline Phosphatase 82 B-Natriuretic Peptide 195 H Total Protein 5.4 L Albumin 3.5 Imaging Radiology Impressions: ITS Impressions Venous Duplex 05/25/21 18:32 IMPRESSION: No DVT demonstrated in the bilateral lower extremities. Medications Medications Current Medications Generic Name Dose Route Start Last Admin Trade Name Freq PRN Reason Stop Dose Admin Acamprosate 666 mg 05/25/21 09:00 05/27/21 16:27 Acamprosate Calcium 333 Mg Tablet. PO 666 mg TID PERLITA Administration Acetaminophen 650 mg 05/19/21 21:14 05/27/21 12:48 Acetaminophen 325 Mg Tablet PO 650 mg Q6H PRN Administration Pain, Mild (Pain Scale 1-3) Al Hydroxide/Mg Hydroxide 30 ml 05/19/21 21:14 Magnesium Hydrox/Alum Hydrox 30 Ml Oral.Susp PO Q6H PRN Heartburn/Nausea Bupropion HCl 300 mg 05/23/21 09:00 05/27/21 08:58 Bupropion Hcl Xl 300 Mg Tab.Er.24h PO 300 mg DAILY [facility] Administration Docusate Sodium 100 mg 05/19/21 21:14 Docusate Sodium 100 Mg Capsule PO DAILY PRN Constipation Folic Acid 1 mg 05/20/21 09:00 05/27/21 08:58 Folic Acid 1 Mg Tablet PO 1 mg DAILY [facility] Administration Furosemide 20 mg 05/27/21 16:30 Furosemide 20 Mg Tablet PO DAILY [facility] Protocol Hydroxyzine HCl 25 mg 05/19/21 21:14 05/25/21 22:37 Hydroxyzine Hcl 25 Mg Tablet PO 25 mg BEDTIME PRN Administration Anxiety Ibuprofen 600 mg 05/22/21 13:00 05/27/21 13:55 Ibuprofen 600 Mg Tablet PO 600 mg QID [facility] Administration Loperamide HCl 2 mg 05/19/21 21:14 Loperamide Hcl 2 Mg Capsule PO Q4H PRN Diarrhea Magnesium Hydroxide 30 ml 05/19/21 21:14 Milk Of Magnesia 30 Ml Oral.Susp PO DAILY PRN Constipation Magnesium Oxide 400 mg 05/20/21 08:30 05/27/21 08:58 Magnesium Oxide 400 Mg Tablet PO 400 mg BIDPC [facility] Administration Midodrine 5 mg 05/20/21 09:00 05/27/21 16:27 Midodrine Hcl 5 Mg Tablet PO 5 mg TID [facility] Administration Omeprazole 20 mg 05/20/21 06:30 05/27/21 06:40 Omeprazole 20 Mg Capsule.Dr PO 20 mg DAILY@0630 [facility] Administration Ondansetron HCl 4 mg 05/19/21 21:14 Ondansetron Hcl 4 Mg/2 Ml Vial IVPUSH Q8H PRN Nausea and Vomiting Oxycodone HCl 10 mg 05/27/21 10:59 05/27/21 14:05 Oxycodone Hcl Immed Release 5 Mg Tablet PO 10 mg Q4H PRN Administration Pain, Severe (Pain Scale 7-10) Pravastatin Sodium 10 mg 05/20/21 09:00 05/27/21 08:58 Pravastatin Sodium 10 Mg Tablet PO 10 mg DAILY [facility] Administration Sodium Bicarbonate 650 mg 05/19/21 21:14 05/27/21 08:58 Sodium Bicarbonate 650 Mg Tablet PO 650 mg BID PERLITA Administration Thiamine HCl 100 mg 05/20/21 09:00 05/27/21 08:58 Thiamine Hcl 100 Mg Tablet PO 100 mg DAILY PER[facility] Administration Trazodone HCl 50 mg 05/19/21 21:14 05/27/21 01:12 Trazodone Hcl 50 Mg Tablet PO 50 mg BEDTIME PRN Administration Insomnia Allergies Allergies Allergy/AdvReac Type Severity Reaction Status Date / Time No Known Allergies Allergy Verified 05/15/21 17:28 Assessment & Plan Assessment & Plan (1) Laceration of right forearm: Status: Resolved Code(s): S51.811A - Laceration without foreign body of right forearm, initial encounter Assessment and Plan: being seen by surgery and hospitalist for mgmt of healing and pain. oxycodone 5 mg dose to be increased to 10 mg Q6H PRN as of 05/26. (2) Major depressive disorder with current active episode: Status: Acute Code(s): F32.9 - Major depressive disorder, single episode, unspecified Assessment and Plan: continue current mgmt (3) Alcohol use disorder: Status: Acute Assessment and Plan: detoxed. planning for rehab. Assessment and Plan: elevated BNP. will ask hospitalist to F/U lab results. Greater than 50% of the session was spent on counseling and/or coordination of care Reason for contiued inpatient stay Substantial Risk for: harm to self, inability to function and rapid decom pensation
[2021-05-26 18:00] VITALS: BP 121/66; PULSE 78; RESP 18; TEMP 36.2; O2SAT 100
[2021-05-26 21:54] VITALS: BP 127/82; PULSE 88
[2021-05-27] MEDS: Acetaminophen 325 MG TABLET 650 MG PO ×3 (01:12→12:48)
[2021-05-27] MEDS: traZODone HCL 50 MG TABLET PO ×2 (01:12→22:12)
[2021-05-27] MEDS: oxyCODONE HCl Immed Release 5 MG TABLET 10 MG PO ×5 (03:55→22:12)
[2021-05-27] MEDS: Omeprazole 20 MG CAPSULE.DR PO (06:40)
--- NOTE | 2021-05-27 07:06 | PC.NURSE ---
2 + edema noted bilateral legs. cried out in pain when assisted with kristin stockings.
[2021-05-27 08:30] VITALS: BP 111/65; PULSE 81; RESP 16; TEMP 36.7; O2SAT 98
[2021-05-27 08:58] VITALS: BP 111/65; PULSE 81
[2021-05-27] MEDS: Ibuprofen 600 MG TABLET PO ×4 (08:58→20:33)
[2021-05-27] MEDS: Folic Acid 1 MG TABLET PO (08:58)
[2021-05-27] MEDS: Pravastatin Sodium 10 MG TABLET PO (08:58)
[2021-05-27] MEDS: Acamprosate Calcium 333 MG TABLET.DR 666 MG PO ×3 (08:58→22:12)
[2021-05-27] MEDS: Magnesium Oxide 400 MG TABLET PO ×2 (08:58→17:04)
[2021-05-27] MEDS: Thiamine HCL 100 MG TABLET PO (08:58)
[2021-05-27] MEDS: Midodrine HCl 5 MG TABLET PO ×3 (08:58→22:13)
[2021-05-27] MEDS: buPROPion HCl XL 300 MG TAB.ER.24H PO (08:58)
[2021-05-27] MEDS: Sodium Bicarbonate 650 MG TABLET PO ×2 (08:58→22:13)
--- NOTE | 2021-05-27 09:41 | HO.PSYCHPN ---
Subjective Subjective Date of Service: 05/27/21 Reason For Visit: SI Interim History: pt c/o pedal edema's not improving with TEDs in the past 24H and feet hurting a lot. clearly in pain ambulating about the unit, putting pressure on feet. also c/o severe incisional pain. MD informs pt will seek hospitalist and surgical input on these problems. otherwise no complaints, states she had a good visit with mother, awaiting word on referral to rehab. per staff, attended 2 of three groups yesterday. anx 01/10. dep 02/09. no SI/HI. tearful in 1:1 mtg. feeling safe on unit. wound healing better. using TEDs, legs up. visted with mother. Mental Status Exam Mental Status Exam Narrative: appropriately dressed and groomed. bandage on right volar forearm. no PMA/PMR. cooperative with interview. speech nml in rate, amount, loudness. decr prosody. nml latency. thoughts linear and logical without paranoia or delusions. affect constricted, appropriate to context, normo-intense. no SI/HI/AVH expressed. Diagnostics Vital Signs (24Hr): Vital Signs - 24 hr 05/26/21 18:00 05/26/21 21:54 05/27/21 08:30 Temperature 97.2 F 98.1 F Pulse Rate 78 88 81 Respiratory Rate 18 16 Blood Pressure 121/66 127/82 111/65 Pulse Oximetry 100 98 05/27/21 08:58 Temperature Pulse Rate 81 Respiratory Rate Blood Pressure 111/65 Pulse Oximetry Body Mass Index 23.3 Labs Results: 05/25/21 17:21 Labs: Laboratory Results - last 48 hr 05/25/21 05/25/21 17:21 17:21 Sodium 141 Potassium 4.6 Chloride 108 Carbon Dioxide 26 Anion Gap 12 BUN 5 L D Creatinine 0.61 Estim Creat Clear Calc 85.1 Estimated GFR > 60 Random Glucose 97 Calcium 8.8 D Magnesium 2.2 Total Bilirubin < 0.2 Direct Bilirubin < 0.2 AST 16 ALT 11 Alkaline Phosphatase 82 B-Natriuretic Peptide 195 H Total Protein 5.4 L Albumin 3.5 Imaging Radiology Impressions: ITS Impressions Venous Duplex 05/25/21 18:32 IMPRESSION: No DVT demonstrated in the bilateral lower extremities. Medications Medications Current Medications Generic Name Dose Route Start Last Admin Trade Name Freq PRN Reason Stop Dose Admin Acamprosate 666 mg 05/25/21 09:00 05/27/21 08:58 Acamprosate Calcium 333 Mg Tablet. PO 666 mg TID [facility] Administration Acetaminophen 650 mg 05/19/21 21:14 05/27/21 06:40 Acetaminophen 325 Mg Tablet PO 650 mg Q6H PRN Administration Pain, Mild (Pain Scale 1-3) Al Hydroxide/Mg Hydroxide 30 ml 05/19/21 21:14 Magnesium Hydrox/Alum Hydrox 30 Ml Oral.Susp PO Q6H PRN Heartburn/Nausea Bupropion HCl 300 mg 05/23/21 09:00 05/27/21 08:58 Bupropion Hcl Xl 300 Mg Tab.Er.24h PO 300 mg DAILY [facility] Administration Docusate Sodium 100 mg 05/19/21 21:14 Docusate Sodium 100 Mg Capsule PO DAILY PRN Constipation Folic Acid 1 mg 05/20/21 09:00 05/27/21 08:58 Folic Acid 1 Mg Tablet PO 1 mg DAILY [facility] Administration Hydroxyzine HCl 25 mg 05/19/21 21:14 05/25/21 22:37 Hydroxyzine Hcl 25 Mg Tablet PO 25 mg BEDTIME PRN Administration Anxiety Ibuprofen 600 mg 05/22/21 13:00 05/27/21 08:58 Ibuprofen 600 Mg Tablet PO 600 mg QID [facility] Administration Loperamide HCl 2 mg 05/19/21 21:14 Loperamide Hcl 2 Mg Capsule PO Q4H PRN Diarrhea Magnesium Hydroxide 30 ml 05/19/21 21:14 Milk Of Magnesia 30 Ml Oral.Susp PO DAILY PRN Constipation Magnesium Oxide 400 mg 05/20/21 08:30 05/27/21 08:58 Magnesium Oxide 400 Mg Tablet PO 400 mg BIDPC [facility] Administration Midodrine 5 mg 05/20/21 09:00 05/27/21 08:58 Midodrine Hcl 5 Mg Tablet PO 5 mg TID [facility] Administration Omeprazole 20 mg 05/20/21 06:30 05/27/21 06:40 Omeprazole 20 Mg Capsule. PO 20 mg DAILY@0630 [facility] Administration Ondansetron HCl 4 mg 05/19/21 21:14 Ondansetron Hcl 4 Mg/2 Ml Vial IVPUSH Q8H PRN Nausea and Vomiting Oxycodone HCl 10 mg 05/26/21 14:37 05/27/21 03:55 Oxycodone Hcl Immed Release 5 Mg Tablet PO 10 mg Q6H PRN Administration Pain, Severe (Pain Scale 7-10) Pravastatin Sodium 10 mg 05/20/21 09:00 05/27/21 08:58 Pravastatin Sodium 10 Mg Tablet PO 10 mg DAILY [facility] Administration Sodium Bicarbonate 650 mg 05/19/21 21:14 05/27/21 08:58 Sodium Bicarbonate 650 Mg Tablet PO 650 mg BID [facility] Administration Thiamine HCl 100 mg 05/20/21 09:00 05/27/21 08:58 Thiamine Hcl 100 Mg Tablet PO 100 mg DAILY [facility] Administration Trazodone HCl 50 mg 05/19/21 21:14 05/27/21 01:12 Trazodone Hcl 50 Mg Tablet PO 50 mg BEDTIME PRN Administration Insomnia Allergies Allergies Allergy/AdvReac Type Severity Reaction Status Date / Time No Known Allergies Allergy Verified 05/15/21 17:28 Assessment & Plan Assessment & Plan (1) Laceration of right forearm: Status: Resolved Code(s): S51.811A - Laceration without foreign body of right forearm, initial encounter Assessment and Plan: being seen by surgery and hospitalist for mgmt of healing and pain. neither discipline will weigh in on pain mgmt. oxycodone 10 mg interval to be increased to Q4H PRN as of 05/27. (2) Major depressive disorder with current active episode: Status: Acute Code(s): F32.9 - Major depressive disorder, single episode, unspecified Assessment and Plan: continue current mgmt (3) Alcohol use disorder: Status: Acute Assessment and Plan: detoxed. planning for rehab. Greater than 50% of the session was spent on counseling and/or coordination of care Reason for contiued inpatient stay Substantial Risk for: harm to self
[2021-05-27 16:27] VITALS: BP 120/67; PULSE 75
[2021-05-27] MEDS: Furosemide 20 MG TABLET PO (17:04)
[2021-05-27 22:13] VITALS: BP 117/69; PULSE 70
[2021-05-27] MEDS: hydrOXYzine HCL 25 MG TABLET PO (22:14)
[2021-05-27 22:16] VITALS: BP 117/69; PULSE 70; TEMP 36.4; O2SAT 98
[2021-05-28] MEDS: oxyCODONE HCl Immed Release 5 MG TABLET 10 MG PO ×5 (02:03→20:42)
[2021-05-28] MEDS: traZODone HCL 50 MG TABLET PO ×2 (02:04→22:27)
[2021-05-28 06:00] VITALS: BP 99/56; PULSE 80; RESP 16; TEMP 36.6; O2SAT 100
[2021-05-28] MEDS: Omeprazole 20 MG CAPSULE.DR PO (06:20)
--- NOTE | 2021-05-28 07:30 | CA_ITS ---
Transthoracic Echocardiogram Patient (Last, First, Middle): Gege Hodges, Gender: Female Date of : 1975 Age: 46 Procedure Date: 05/28/2021 Procedure Type: Transthoracic Echocardiogram Location: OP Height: 154.94 cm Weight: 55.79 kg BSA: 1.54 m2 Heart Rate: bpm BP: 117 / 69 mmHg Bdc Manager: JAY Referring MD: Andrew Flanagan MD Wire Annealer: Severo Boss MD Symptoms: edema, elev BNP Conclusions: - 1. Normal LV systolic function with diastolic filling pattern appears to be normal 2. Mild aortic regurgitation 3. Normal RV systolic pressure 4. Trivial pericardial effusion near the LV Findings Left Ventricle Normal left ventricular size, thickness, and systolic function. The visually estimated ejection fraction is between 60-65%. Spectral Doppler is indicative of a normal filling pattern. Right Ventricle Normal right ventricular cavity size and systolic function. Atria The left atrium is normal in size. There is no evidence of interatrial shunt. The right atrium is normal in size. Aortic Valve There is mild calcification of the aortic valve. There is no aortic valve stenosis. There is mild aortic valve regurgitation. Mitral Valve There is mild anterior mitral leaflet thickening. There is mild mitral annular calcification. There is trace mitral valve regurgitation. There is no mitral valve stenosis. Pulmonic Valve The pulmonic valve is likely normal. There is trace to mild pulmonic valve regurgitation. Tricuspid Valve Normal tricuspid valve structure. There is mild tricuspid valve regurgitation. The right ventricular systolic pressure is normal. The right ventricular systolic pressure is 25 mmHg. Normal right atrial pressure. There is no evidence of pulmonary hypertension. Great Vessels All visible segments of the aorta are normal in size. The pulmonary artery was not well visualized. Venous The inferior vena cava is normal in size and collapses greater than 50% with inspiration. Pericardium/Pleural There is a trivial loculated pericardial effusion overlying the left ventricle. Prior Study Comparison No prior study available for comparison. Measurements 2D Linear Measurements IVSd: 0.76 0.6-0.9/0.6-1.0 cm LVIDd: 4.75 3.9-5.3/4.2-5.9 cm LVIDd Index: 3.08 2.4-3.2/2.2-3.1 cm/m2 LVIDs: 3.25 2.0-3.6 cm LVPWd: 0.97 0.7-1.1 cm Ao Root: 2.40 2.1-3.5 cm LA Diam: 3.40 2.7-3.8/3.0-4.0 cm LAIDs Index: 2.21 1.5-2.3 cm/m2 LV Mass: 171.65 67-162/88-224 g LV Mass Index: 111.46 43-95/49-115 g/m2 LVOT Diam: 1.90 3.0+(-)1.3 cm 2D Systolic Function EF 4C: 62.80 >55% Mitral Valve MV Pk E: 0.87 MV PK A: 0.54 MV Decel Time: 118.00 E/A: 1.60 PHT: 35.00 MVA PHT: 6.29 Decel Long: 7.41 Aortic Valve AoV Pk Jose G: 1.56 AoV Pk Grad: 10.00 AI Pk Jose G: 4.44 AI Long: 3.13 LVOT LVOT Pk Jose G: 1.10 LVOT Mn Jose G: 0.79 LVOT VTI: 0.24 LVOT Pk Grad: 5.00 LVOT Mn Grad: 3.00 LVOT Diam: 1.90 LVOT Area: 2.84 Diastolic Function MV Pk E: 0.87 MV Pk A: 0.54 E/A: 1.60 Right Ventricle TAPSE (mm): 2.11 Tricuspid Valve TR Pk Jose G: 2.36 TR Pk Grad: 22.00 RA Press: 3.00 RVSP: 25.00 Great Vessels Aorta Ao Root-2D: 2.40 2.0-3.7 cm Ao Asc: 3.30 2.1-3.4 cm Updated in Other Vendor System with Status of Final Severo Boss MD electronically signed on 05/29/2021 9:21:27 AM with status of Final
--- NOTE | 2021-05-28 08:21 | PM.PNGS ---
Subjective Subjective Date of Service: 05/28/21 Interval history: Denies new complaints Some pain on the laceration site Says she is happy with her therapy Physical Exam Vital Signs: Vital Signs: Last Vital Signs Temp 98 F 05/28/21 06:00 Pulse 80 05/28/21 06:00 Resp 16 05/28/21 06:00 BP 99/56 L 05/28/21 06:00 Pulse Ox 100 05/28/21 06:00 Body Mass Index 23.3 Const: General: comfortable and no acute distress Resp: Effort & Inspection: normal respiratory effort Extrem: Other: Wound on the right wrist healing well, surface area has contracted significantly, good granulation, no pus or evidence of infection Procedures Date of Service Date of Service: 05/28/21 Progress Note: A&P Assessment and plan (1) Open wound: Status: Acute Assessment and Plan: Improving well No infection Dressings changed Allow to heal by secondary intention Continue daily dressing changes with dry gauze Fall Risk Details Current Medications: Current Medications Generic Name Dose Route Start Last Admin Trade Name Freq PRN Reason Stop Dose Admin Acamprosate 666 mg 05/25/21 09:00 05/27/21 22:12 Acamprosate Calcium 333 Mg Tablet. PO 666 mg TID [facility] Administration Acetaminophen 650 mg 05/19/21 21:14 05/27/21 12:48 Acetaminophen 325 Mg Tablet PO 650 mg Q6H PRN Administration Pain, Mild (Pain Scale 1-3) Al Hydroxide/Mg Hydroxide 30 ml 05/19/21 21:14 Magnesium Hydrox/Alum Hydrox 30 Ml Oral.Susp PO Q6H PRN Heartburn/Nausea Bupropion HCl 300 mg 05/23/21 09:00 05/27/21 08:58 Bupropion Hcl Xl 300 Mg Tab.Er.24h PO 300 mg DAILY [facility] Administration Docusate Sodium 100 mg 05/19/21 21:14 Docusate Sodium 100 Mg Capsule PO DAILY PRN Constipation Folic Acid 1 mg 05/20/21 09:00 05/27/21 08:58 Folic Acid 1 Mg Tablet PO 1 mg DAILY [facility] Administration Furosemide 20 mg 05/27/21 16:30 05/27/21 17:04 Furosemide 20 Mg Tablet PO 20 mg DAILY [facility] Administration Protocol Hydroxyzine HCl 25 mg 05/19/21 21:14 05/27/21 22:14 Hydroxyzine Hcl 25 Mg Tablet PO 25 mg BEDTIME PRN Administration Anxiety Ibuprofen 600 mg 05/22/21 13:00 05/27/21 20:33 Ibuprofen 600 Mg Tablet PO 600 mg QID [facility] Administration Loperamide HCl 2 mg 05/19/21 21:14 Loperamide Hcl 2 Mg Capsule PO Q4H PRN Diarrhea Magnesium Hydroxide 30 ml 05/19/21 21:14 Milk Of Magnesia 30 Ml Oral.Susp PO DAILY PRN Constipation Magnesium Oxide 400 mg 05/20/21 08:30 05/27/21 17:04 Magnesium Oxide 400 Mg Tablet PO 400 mg BIDPC [facility] Administration Midodrine 5 mg 05/20/21 09:00 05/27/21 22:13 Midodrine Hcl 5 Mg Tablet PO 5 mg TID [facility] Administration Omeprazole 20 mg 05/20/21 06:30 05/28/21 06:20 Omeprazole 20 Mg Capsule.Dr PO 20 mg DAILY@0630 [facility] Administration Ondansetron HCl 4 mg 05/19/21 21:14 Ondansetron Hcl 4 Mg/2 Ml Vial IVPUSH Q8H PRN Nausea and Vomiting Oxycodone HCl 10 mg 05/27/21 10:59 05/28/21 06:20 Oxycodone Hcl Immed Release 5 Mg Tablet PO 10 mg Q4H PRN Administration Pain, Severe (Pain Scale 7-10) Pravastatin Sodium 10 mg 05/20/21 09:00 05/27/21 08:58 Pravastatin Sodium 10 Mg Tablet PO 10 mg DAILY [facility] Administration Sodium Bicarbonate 650 mg 05/19/21 21:14 05/27/21 22:13 Sodium Bicarbonate 650 Mg Tablet PO 650 mg BID [facility] Administration Thiamine HCl 100 mg 05/20/21 09:00 05/27/21 08:58 Thiamine Hcl 100 Mg Tablet PO 100 mg DAILY [facility] Administration Trazodone HCl 50 mg 05/19/21 21:14 05/28/21 02:04 Trazodone Hcl 50 Mg Tablet PO 50 mg BEDTIME PRN Administration Insomnia Time Spent With Patient Time: Total time spent is greater than 50% in coordination of care (as documented) at patient's floor/unit and/or counseling patient: Time with patient: 15 - 24 minutes Quality Stroke Does the patient have a stroke diagnosis?: No VTE Prior VTE?: No VTE Risk Level:: Medical - low VTE Device Contraindication: Treatment Not Indicated VTE Drug Contraindication: Treatment Not Indicated
[2021-05-28] MEDS: Ibuprofen 600 MG TABLET PO ×4 (08:24→20:25)
[2021-05-28 08:25] VITALS: BP 99/56; PULSE 80
[2021-05-28] MEDS: buPROPion HCl XL 300 MG TAB.ER.24H PO (08:25)
[2021-05-28] MEDS: Furosemide 20 MG TABLET PO (08:25)
[2021-05-28] MEDS: Midodrine HCl 5 MG TABLET PO ×3 (08:25→20:25)
[2021-05-28] MEDS: Acamprosate Calcium 333 MG TABLET.DR 666 MG PO ×3 (08:25→20:24)
[2021-05-28] MEDS: Magnesium Oxide 400 MG TABLET PO ×2 (08:25→17:39)
[2021-05-28] MEDS: Pravastatin Sodium 10 MG TABLET PO (08:26)
[2021-05-28] MEDS: Thiamine HCL 100 MG TABLET PO (08:26)
[2021-05-28] MEDS: Sodium Bicarbonate 650 MG TABLET PO ×2 (08:26→20:24)
[2021-05-28] MEDS: Folic Acid 1 MG TABLET PO (08:26)
--- NOTE | 2021-05-28 13:44 | HO.PSYCHPN ---
Subjective Subjective Date of Service: 05/28/21 Reason For Visit: SI Interim History: pt reports her pain is unchanged. she states the surgeon saw her this morning and told her it is healing well now. she states she has started lasix but has observed no change in the swelling of her lower extremities. believes she will have cardiac echo today. stated her CXR was WNL. asks about gabapentin for pain, asked to be patient while we decrease her edema and see how the healing goes for her arm. no other complaints or requests. per staff, taking lots of pain meds. pleasant, hopeful. leg pain, edema. started lasix. echo pending. Mental Status Exam Mental Status Exam Narrative: appropriately dressed and groomed. bandage on right volar forearm. no PMA/PMR. cooperative with interview. speech nml in rate, amount, loudness. decr prosody. nml latency. thoughts linear and logical without paranoia or delusions. affect constricted, appropriate to context, normo-intense. no SI/HI/AVH expressed. Diagnostics Vital Signs (24Hr): Vital Signs - 24 hr 05/27/21 16:27 05/27/21 22:13 05/27/21 22:16 Temperature 97.5 F Pulse Rate 75 70 70 Respiratory Rate Blood Pressure 120/67 117/69 117/69 Pulse Oximetry 98 05/28/21 06:00 05/28/21 08:25 Temperature 98 F Pulse Rate 80 80 Respiratory Rate 16 Blood Pressure 99/56 L 99/56 L Pulse Oximetry 100 Body Mass Index 23.3 Labs Results: 05/25/21 17:21 Imaging Radiology Impressions: ITS Impressions Venous Duplex 05/25/21 18:32 IMPRESSION: No DVT demonstrated in the bilateral lower extremities. Chest X-Ray 05/27/21 16:58 IMPRESSION: Unremarkable examination. Medications Medications Current Medications Generic Name Dose Route Start Last Admin Trade Name Freq PRN Reason Stop Dose Admin Acamprosate 666 mg 05/25/21 09:00 05/28/21 08:25 Acamprosate Calcium 333 Mg Tablet. PO 666 mg TID [facility] Administration Acetaminophen 650 mg 05/19/21 21:14 05/27/21 12:48 Acetaminophen 325 Mg Tablet PO 650 mg Q6H PRN Administration Pain, Mild (Pain Scale 1-3) Al Hydroxide/Mg Hydroxide 30 ml 05/19/21 21:14 Magnesium Hydrox/Alum Hydrox 30 Ml Oral.Susp PO Q6H PRN Heartburn/Nausea Bupropion HCl 300 mg 05/23/21 09:00 05/28/21 08:25 Bupropion Hcl Xl 300 Mg Tab.Er.24h PO 300 mg DAILY [facility] Administration Docusate Sodium 100 mg 05/19/21 21:14 Docusate Sodium 100 Mg Capsule PO DAILY PRN Constipation Folic Acid 1 mg 05/20/21 09:00 05/28/21 08:26 Folic Acid 1 Mg Tablet PO 1 mg DAILY [facility] Administration Furosemide 20 mg 05/27/21 16:30 05/28/21 08:25 Furosemide 20 Mg Tablet PO 20 mg DAILY [facility] Administration Protocol Hydroxyzine HCl 25 mg 05/19/21 21:14 05/27/21 22:14 Hydroxyzine Hcl 25 Mg Tablet PO 25 mg BEDTIME PRN Administration Anxiety Ibuprofen 600 mg 05/22/21 13:00 05/28/21 13:10 Ibuprofen 600 Mg Tablet PO 600 mg QID [facility] Administration Loperamide HCl 2 mg 05/19/21 21:14 Loperamide Hcl 2 Mg Capsule PO Q4H PRN Diarrhea Magnesium Hydroxide 30 ml 05/19/21 21:14 Milk Of Magnesia 30 Ml Oral.Susp PO DAILY PRN Constipation Magnesium Oxide 400 mg 05/20/21 08:30 05/28/21 08:25 Magnesium Oxide 400 Mg Tablet PO 400 mg BIDPC [facility] Administration Midodrine 5 mg 05/20/21 09:00 05/28/21 08:25 Midodrine Hcl 5 Mg Tablet PO 5 mg TID [facility] Administration Omeprazole 20 mg 05/20/21 06:30 05/28/21 06:20 Omeprazole 20 Mg Capsule.Dr PO 20 mg DAILY@0630 [facility] Administration Ondansetron HCl 4 mg 05/19/21 21:14 Ondansetron Hcl 4 Mg/2 Ml Vial IVPUSH Q8H PRN Nausea and Vomiting Oxycodone HCl 10 mg 05/27/21 10:59 05/28/21 10:56 Oxycodone Hcl Immed Release 5 Mg Tablet PO 10 mg Q4H PRN Administration Pain, Severe (Pain Scale 7-10) Pravastatin Sodium 10 mg 05/20/21 09:00 05/28/21 08:26 Pravastatin Sodium 10 Mg Tablet PO 10 mg DAILY [facility] Administration Sodium Bicarbonate 650 mg 05/19/21 21:14 05/28/21 08:26 Sodium Bicarbonate 650 Mg Tablet PO 650 mg BID [facility] Administration Thiamine HCl 100 mg 05/20/21 09:00 05/28/21 08:26 Thiamine Hcl 100 Mg Tablet PO 100 mg DAILY [facility] Administration Trazodone HCl 50 mg 05/19/21 21:14 05/28/21 02:04 Trazodone Hcl 50 Mg Tablet PO 50 mg BEDTIME PRN Administration Insomnia Allergies Allergies Allergy/AdvReac Type Severity Reaction Status Date / Time No Known Allergies Allergy Verified 05/15/21 17:28 Assessment & Plan Assessment & Plan (1) Major depressive disorder with current active episode: Status: Acute Code(s): F32.9 - Major depressive disorder, single episode, unspecified Assessment and Plan: continue current mgmt. mood much improved. (2) Alcohol use disorder: Status: Acute Assessment and Plan: detox completed. awaiting bed at rehab. (3) Open wound: Status: Acute Code(s): T14.8XXA - Other injury of unspecified body region, initial encounter Assessment and Plan: Improving well No infection Dressings changed Allow to heal by secondary intention Continue daily dressing changes with dry gauze oxycodone 10 mg interval to be increased to Q4H PRN as of 05/27. Greater than 50% of the session was spent on counseling and/or coordination of care Reason for contiued inpatient stay Substantial Risk for: harm to self and rapid decompensation
[2021-05-28 15:53] VITALS: BP 118/60; PULSE 74
[2021-05-28] MEDS: Acetaminophen 325 MG TABLET 650 MG PO (17:24)
[2021-05-28 18:00] VITALS: BP 109/57; PULSE 79; RESP 18; TEMP 36.3; O2SAT 100
[2021-05-28 20:25] VITALS: BP 109/57; PULSE 79
[2021-05-28] MEDS: hydrOXYzine HCL 25 MG TABLET PO (22:27)
[2021-05-29] MEDS: traZODone HCL 50 MG TABLET PO (00:53)
[2021-05-29] MEDS: oxyCODONE HCl Immed Release 5 MG TABLET 10 MG PO ×6 (00:55→21:43)
[2021-05-29] MEDS: Acetaminophen 325 MG TABLET 650 MG PO ×3 (00:55→12:15)
[2021-05-29 06:00] VITALS: BP 108/55; PULSE 78; RESP 18; TEMP 36.4; O2SAT 97
[2021-05-29] MEDS: Omeprazole 20 MG CAPSULE.DR PO (06:32)
[2021-05-29] MEDS: Ibuprofen 600 MG TABLET PO ×4 (08:05→21:44)
[2021-05-29] MEDS: Midodrine HCl 5 MG TABLET PO ×3 (08:06→21:43)
[2021-05-29] MEDS: Magnesium Oxide 400 MG TABLET PO ×2 (08:06→17:31)
[2021-05-29] MEDS: Folic Acid 1 MG TABLET PO (08:06)
[2021-05-29] MEDS: Furosemide 20 MG TABLET PO (08:06)
[2021-05-29] MEDS: Sodium Bicarbonate 650 MG TABLET PO ×2 (08:06→21:43)
[2021-05-29] MEDS: Pravastatin Sodium 10 MG TABLET PO (08:06)
[2021-05-29] MEDS: Acamprosate Calcium 333 MG TABLET.DR 666 MG PO ×3 (08:06→21:43)
[2021-05-29] MEDS: Thiamine HCL 100 MG TABLET PO (08:06)
[2021-05-29] MEDS: buPROPion HCl XL 300 MG TAB.ER.24H PO (08:06)
--- NOTE | 2021-05-29 14:33 | P.PNPSI_ITS ---
Subjective Subjective Date of Service: 05/29/21 Reason For Visit: SI Interim History: still c/o sore legs and laceration site. little change in edema. reassured to give it through the weekend. otherwise stable, awaiting bed at [facility] [place] [facility]. results of TTE discussed, no need for alarm. agreeable to increase traz to 100 mg QHS with 50 mg available PRN. per staff, resltess. no issues. passages referral pending. Mental Status Exam Mental Status Exam Narrative: appropriately dressed and groomed. bandage on right volar forearm. no PMA/PMR. cooperative with interview. speech nml in rate, amount, loudness. decr prosody. nml latency. thoughts linear and logical without paranoia or delusions. affect constricted, appropriate to context, normo-intense. no SI/HI/AVH expressed. Diagnostics Vital Signs (24Hr): Vital Signs - 24 hr 05/28/21 15:53 05/28/21 18:00 05/28/21 20:25 Temperature 97.4 F Pulse Rate 74 79 79 Respiratory Rate 18 Blood Pressure 118/60 109/57 L 109/57 L Pulse Oximetry 100 05/29/21 06:00 Temperature 97.6 F Pulse Rate 78 Respiratory Rate 18 Blood Pressure 108/55 L Pulse Oximetry 97 Body Mass Index 23.3 Labs Results: 05/25/21 17:21 Imaging Radiology Impressions: ITS Impressions Venous Duplex 05/25/21 18:32 IMPRESSION: No DVT demonstrated in the bilateral lower extremities. Chest X-Ray 05/27/21 16:58 IMPRESSION: Unremarkable examination. Medications Medications Current Medications Generic Name Dose Route Start Last Admin Trade Name Freq PRN Reason Stop Dose Admin Acamprosate 666 mg 05/25/21 09:00 05/29/21 08:06 Acamprosate Calcium 333 Mg Tablet. PO 666 mg TID [facility] Administration Acetaminophen 650 mg 05/19/21 21:14 05/29/21 12:15 Acetaminophen 325 Mg Tablet PO 650 mg Q6H PRN Administration Pain, Mild (Pain Scale 1-3) Al Hydroxide/Mg Hydroxide 30 ml 05/19/21 21:14 Magnesium Hydrox/Alum Hydrox 30 Ml Oral.Susp PO Q6H PRN Heartburn/Nausea Bupropion HCl 300 mg 05/23/21 09:00 05/29/21 08:06 Bupropion Hcl Xl 300 Mg Tab.Er.24h PO 300 mg DAILY [facility] Administration Docusate Sodium 100 mg 05/19/21 21:14 Docusate Sodium 100 Mg Capsule PO DAILY PRN Constipation Folic Acid 1 mg 05/20/21 09:00 05/29/21 08:06 Folic Acid 1 Mg Tablet PO 1 mg DAILY [facility] Administration Furosemide 20 mg 05/27/21 16:30 05/29/21 08:06 Furosemide 20 Mg Tablet PO 20 mg DAILY [facility] Administration Protocol Hydroxyzine HCl 25 mg 05/19/21 21:14 05/28/21 22:27 Hydroxyzine Hcl 25 Mg Tablet PO 25 mg BEDTIME PRN Administration Anxiety Ibuprofen 600 mg 05/22/21 13:00 05/29/21 12:15 Ibuprofen 600 Mg Tablet PO 600 mg QID [facility] Administration Loperamide HCl 2 mg 05/19/21 21:14 Loperamide Hcl 2 Mg Capsule PO Q4H PRN Diarrhea Magnesium Hydroxide 30 ml 05/19/21 21:14 Milk Of Magnesia 30 Ml Oral.Susp PO DAILY PRN Constipation Magnesium Oxide 400 mg 05/20/21 08:30 05/29/21 08:06 Magnesium Oxide 400 Mg Tablet PO 400 mg BIDPC [facility] Administration Midodrine 5 mg 05/20/21 09:00 05/29/21 08:06 Midodrine Hcl 5 Mg Tablet PO 5 mg TID [facility] Administration Omeprazole 20 mg 05/20/21 06:30 05/29/21 06:32 Omeprazole 20 Mg Capsule. PO 20 mg DAILY@0630 [facility] Administration Ondansetron HCl 4 mg 05/19/21 21:14 Ondansetron Hcl 4 Mg/2 Ml Vial IVPUSH Q8H PRN Nausea and Vomiting Oxycodone HCl 10 mg 05/27/21 10:59 05/29/21 13:22 Oxycodone Hcl Immed Release 5 Mg Tablet PO 10 mg Q4H PRN Administration Pain, Severe (Pain Scale 7-10) Pravastatin Sodium 10 mg 05/20/21 09:00 05/29/21 08:06 Pravastatin Sodium 10 Mg Tablet PO 10 mg DAILY [facility] Administration Sodium Bicarbonate 650 mg 05/19/21 21:14 05/29/21 08:06 Sodium Bicarbonate 650 Mg Tablet PO 650 mg BID [facility] Administration Thiamine HCl 100 mg 05/20/21 09:00 05/29/21 08:06 Thiamine Hcl 100 Mg Tablet PO 100 mg DAILY [facility] Administration Trazodone HCl 50 mg 05/19/21 21:14 05/29/21 00:53 Trazodone Hcl 50 Mg Tablet PO 50 mg BEDTIME PRN Administration Insomnia Trazodone HCl 100 mg 05/29/21 21:00 Trazodone Hcl 100 Mg Tablet PO BEDTIME [facility] Allergies Allergies Allergy/AdvReac Type Severity Reaction Status Date / Time No Known Allergies Allergy Verified 05/15/21 17:28 Assessment & Plan Assessment & Plan (1) Major depressive disorder with current active episode: Status: Acute Code(s): F32.9 - Major depressive disorder, single episode, unspecified Assessment and Plan: continue current mgmt. mood much improved. (2) Alcohol use disorder: Status: Acute Assessment and Plan: detox completed. awaiting bed at rehab. (3) Open wound: Status: Acute Code(s): T14.8XXA - Other injury of unspecified body region, initial encounter Assessment and Plan: Improving well No infection Dressings changed Allow to heal by secondary intention Continue daily dressing changes with dry gauze oxycodone 10 mg interval increased to Q4H PRN as of 05/27. Greater than 50% of the session was spent on counseling and/or coordination of care Reason for contiued inpatient stay Substantial Risk for: rapid decompensation
[2021-05-29 20:29] VITALS: BP 119/68; PULSE 84; RESP 18; TEMP 36.5; O2SAT 95
[2021-05-29 21:43] VITALS: BP 126/78; PULSE 75
[2021-05-29] MEDS: traZODone HCL 100 MG TABLET PO (22:01)
[2021-05-30] MEDS: traZODone HCL 50 MG TABLET PO (01:29)
[2021-05-30] MEDS: Acetaminophen 325 MG TABLET 650 MG PO ×3 (01:29→14:53)
[2021-05-30] MEDS: oxyCODONE HCl Immed Release 5 MG TABLET 10 MG PO ×6 (01:43→23:15)
[2021-05-30] MEDS: Omeprazole 20 MG CAPSULE.DR PO (06:35)
[2021-05-30 07:20] VITALS: BP 101/54; PULSE 77; RESP 16; TEMP 36.5; O2SAT 99
[2021-05-30 08:13] VITALS: BP 101/54; PULSE 77
[2021-05-30] MEDS: Acamprosate Calcium 333 MG TABLET.DR 666 MG PO ×3 (08:13→23:13)
[2021-05-30] MEDS: Midodrine HCl 5 MG TABLET PO ×3 (08:13→23:16)
[2021-05-30] MEDS: Sodium Bicarbonate 650 MG TABLET PO ×2 (08:13→23:14)
[2021-05-30] MEDS: Magnesium Oxide 400 MG TABLET PO ×2 (08:13→17:36)
[2021-05-30] MEDS: Ibuprofen 600 MG TABLET PO ×4 (08:14→21:14)
[2021-05-30] MEDS: buPROPion HCl XL 300 MG TAB.ER.24H PO (08:14)
[2021-05-30] MEDS: Folic Acid 1 MG TABLET PO (08:14)
[2021-05-30] MEDS: Pravastatin Sodium 10 MG TABLET PO (08:14)
[2021-05-30] MEDS: Thiamine HCL 100 MG TABLET PO (08:15)
[2021-05-30] MEDS: Furosemide 20 MG TABLET PO (09:39)
[2021-05-30 14:49] VITALS: BP 112/59; PULSE 81
--- NOTE | 2021-05-30 15:42 | HO.PSYCHPN ---
Subjective Subjective Date of Service: 05/31/21 Reason For Visit: SI Subjective Notes: Conditional Voluntary Guardianship: No Medical Problems Affecting Mental Status: Yes Interim History: pt states glad to be alive long hx of alcoholism complains of edema and pain difficulty with sleep remains on midodrine Medication Compliance: Yes Review of Systems edema on mitodrine lasix unclear etiology s/p endometrial ca Mental Status Exam Mental Status Exam Narrative: appropriately dressed and groomed. bandage on right volar forearm. no PMA/PMR. cooperative with interview. speech nml in rate, amount, loudness. decr prosody. nml latency. thoughts linear and logical without paranoia or delusions. affect constricted, appropriate to context, normo-intense. no SI/HI/AVH expressed. Diagnostics Vital Signs (24Hr): Vital Signs - 24 hr 05/29/21 20:29 05/29/21 21:43 05/30/21 07:20 Temperature 97.7 F 97.7 F Pulse Rate 84 75 77 Respiratory Rate 18 16 Blood Pressure 119/68 126/78 101/54 L Pulse Oximetry 95 99 05/30/21 08:13 05/30/21 14:49 Temperature Pulse Rate 77 81 Respiratory Rate Blood Pressure 101/54 L 112/59 L Pulse Oximetry Body Mass Index 23.3 Labs Results: 05/31/21 07:15 05/25/21 17:21 Imaging Radiology Impressions: ITS Impressions Venous Duplex 05/25/21 18:32 IMPRESSION: No DVT demonstrated in the bilateral lower extremities. Chest X-Ray 05/27/21 16:58 IMPRESSION: Unremarkable examination. Medications Medications Current Medications Generic Name Dose Route Start Last Admin Trade Name Tinq PRN Reason Stop Dose Admin Acamprosate 666 mg 05/25/21 09:00 05/30/21 14:49 Acamprosate Calcium 333 Mg Tablet. PO 666 mg TID PERLITA Administration Acetaminophen 650 mg 05/19/21 21:14 05/30/21 14:53 Acetaminophen 325 Mg Tablet PO 650 mg Q6H PRN Administration Pain, Mild (Pain Scale 1-3) Al Hydroxide/Mg Hydroxide 30 ml 05/19/21 21:14 Magnesium Hydrox/Alum Hydrox 30 Ml Oral.Susp PO Q6H PRN Heartburn/Nausea Bupropion HCl 300 mg 05/23/21 09:00 05/30/21 08:14 Bupropion Hcl Xl 300 Mg Tab.Er.24h PO 300 mg DAILY PERLITA Administration Docusate Sodium 100 mg 05/19/21 21:14 Docusate Sodium 100 Mg Capsule PO DAILY PRN Constipation Folic Acid 1 mg 05/20/21 09:00 05/30/21 08:14 Folic Acid 1 Mg Tablet PO 1 mg DAILY PERLITA Administration Furosemide 20 mg 05/27/21 16:30 05/30/21 09:39 Furosemide 20 Mg Tablet PO 20 mg DAILY PERLITA Administration Protocol Hydroxyzine HCl 25 mg 05/19/21 21:14 05/28/21 22:27 Hydroxyzine Hcl 25 Mg Tablet PO 25 mg BEDTIME PRN Administration Anxiety Ibuprofen 600 mg 05/22/21 13:00 05/30/21 14:07 Ibuprofen 600 Mg Tablet PO 600 mg QID PERLITA Administration Loperamide HCl 2 mg 05/19/21 21:14 Loperamide Hcl 2 Mg Capsule PO Q4H PRN Diarrhea Magnesium Hydroxide 30 ml 05/19/21 21:14 Milk Of Magnesia 30 Ml Oral.Susp PO DAILY PRN Constipation Magnesium Oxide 400 mg 05/20/21 08:30 05/30/21 08:13 Magnesium Oxide 400 Mg Tablet PO 400 mg BIDPC PERLITA Administration Midodrine 5 mg 05/20/21 09:00 05/30/21 14:49 Midodrine Hcl 5 Mg Tablet PO 5 mg TID PERLITA Administration Omeprazole 20 mg 05/20/21 06:30 05/30/21 06:35 Omeprazole 20 Mg Capsule.Dr PO 20 mg DAILY@0630 PERLITA Administration Ondansetron HCl 4 mg 05/19/21 21:14 Ondansetron Hcl 4 Mg/2 Ml Vial IVPUSH Q8H PRN Nausea and Vomiting Oxycodone HCl 10 mg 05/27/21 10:59 05/30/21 14:49 Oxycodone Hcl Immed Release 5 Mg Tablet PO 10 mg Q4H PRN Administration Pain, Severe (Pain Scale 7-10) Pravastatin Sodium 10 mg 05/20/21 09:00 05/30/21 08:14 Pravastatin Sodium 10 Mg Tablet PO 10 mg DAILY PERLITA Administration Sodium Bicarbonate 650 mg 05/19/21 21:14 05/30/21 08:13 Sodium Bicarbonate 650 Mg Tablet PO 650 mg BID [facility] Administration Thiamine HCl 100 mg 05/20/21 09:00 05/30/21 08:15 Thiamine Hcl 100 Mg Tablet PO 100 mg DAILY PERLITA Administration Trazodone HCl 50 mg 05/19/21 21:14 05/30/21 01:29 Trazodone Hcl 50 Mg Tablet PO 50 mg BEDTIME PRN Administration Insomnia Trazodone HCl 100 mg 05/29/21 21:00 05/29/21 22:01 Trazodone Hcl 100 Mg Tablet PO 100 mg BEDTIME PERLITA Administration Allergies Allergies Allergy/AdvReac Type Severity Reaction Status Date / Time No Known Allergies Allergy Verified 05/15/21 17:28 Assessment & Plan Assessment & Plan (1) Major depressive disorder with current active episode: Status: Acute Code(s): F32.9 - Major depressive disorder, single episode, unspecified Assessment and Plan: continue current mgmt. mood much improved. edenies (2) Alcohol use disorder: Status: Acute Assessment and Plan: wanting sobriety (3) Open wound: Status: Acute Code(s): T14.8XXA - Other injury of unspecified body region, initial encounter Assessment and Plan: Remains depressed anxious complains of severe pain and edema remains on midodrine. Agreeable to switching trazodone to mirtazapine hopefully this will help Greater than 50% of the session was spent on counseling and/or coordination of care Reason for contiued inpatient stay Substantial Risk for: harm to self
[2021-05-30 17:59] VITALS: BP 112/59; PULSE 81; RESP 16; TEMP 36.6; O2SAT 98
[2021-05-30 21:30] VITALS: BP 121/67; PULSE 78; RESP 16; TEMP 36.8; O2SAT 99
[2021-05-30] MEDS: Mirtazapine 7.5 MG TABLET PO (23:14)
[2021-05-30] MEDS: traZODone HCL 100 MG TABLET PO (23:15)
[2021-05-30 23:16] VITALS: BP 119/71; PULSE 76
[2021-05-31] MEDS: hydrOXYzine HCL 25 MG TABLET PO (01:40)
[2021-05-31] MEDS: traZODone HCL 50 MG TABLET PO (01:40)
[2021-05-31] MEDS: Acetaminophen 325 MG TABLET 650 MG PO ×3 (01:41→15:49)
[2021-05-31] MEDS: oxyCODONE HCl Immed Release 5 MG TABLET 10 MG PO ×5 (04:27→21:11)
[2021-05-31] MEDS: Omeprazole 20 MG CAPSULE.DR PO (05:30)
[2021-05-31 07:31] LABS: MANUAL DIFF FLAG NO
[2021-05-31 07:38] LABS: Basophils Absolute Auto 0.1 X10*3/uL (0.0-0.2); Basophils Percent Auto 1.3 % (0-2); Eosinophils Absolute Auto 0.2 X10*3/uL (0.0-0.4); Eosinophils Percent Auto 2.8 % (0-4); Hematocrit 27.2 % (37-47); Hemoglobin 8.5 g/dl (12.0-16.0); Imm Gran Abs Auto 0.02 X10*3/uL (0.00-0.03); Imm Gran Pct Auto 0.3 % (0.0-0.4); Lymphocytes Absolute Auto 2.6 X10*3/uL (1.2-4.9); Lymphocytes Percent Auto 34.6 % (20-40); Mean Corpuscular HGB Conc 31.3 g/dl (31.0-35.0); Mean Corpuscular Hemoglobin 32.4 pg (27.0-33.0); Mean Corpuscular Volume 103.8 fL (80-98); Mean Platelet Volume 9.2 fL (9.4-12.3); Monocytes Absolute Auto 0.5 X10*3/uL (0.1-1.2); Monocytes Percent Auto 6.8 % (2-11); Neutrophils Absolute Auto 4.1 X10*3/uL (2.0-8.3); Neutrophils Percent Auto 54.2 % (45-73); Platelet Count 344 X10*3/uL (160-400); Red Blood Count 2.62 X10*6/uL (4.20-5.50); Red Cell Distribution Width 13.9 % (11.0-16.0); White Blood Count 7.5 X10*3/uL (4.8-10.8)
[2021-05-31 07:40] VITALS: BP 103/51; PULSE 95; RESP 16; TEMP 36.7; O2SAT 97
[2021-05-31 08:03] LABS: B Type Natriuretic Peptide 150 pg/mL (<100)
[2021-05-31] MEDS: Sodium Bicarbonate 650 MG TABLET PO ×2 (08:08→21:10)
[2021-05-31] MEDS: Acamprosate Calcium 333 MG TABLET.DR 666 MG PO ×3 (08:08→21:11)
[2021-05-31 08:09] VITALS: BP 103/51; PULSE 95
[2021-05-31] MEDS: Midodrine HCl 5 MG TABLET PO ×3 (08:09→21:11)
[2021-05-31] MEDS: buPROPion HCl XL 300 MG TAB.ER.24H PO (08:10)
[2021-05-31] MEDS: Furosemide 20 MG TABLET PO (08:10)
[2021-05-31] MEDS: Folic Acid 1 MG TABLET PO (08:10)
[2021-05-31] MEDS: Magnesium Oxide 400 MG TABLET PO ×2 (08:10→17:05)
[2021-05-31] MEDS: Pravastatin Sodium 10 MG TABLET PO (08:10)
[2021-05-31] MEDS: Thiamine HCL 100 MG TABLET PO (08:11)
[2021-05-31] MEDS: Ibuprofen 600 MG TABLET PO ×4 (08:11→21:10)
[2021-05-31 15:45] VITALS: BP 102/64; PULSE 82; RESP 16; TEMP 36.7; O2SAT 100
[2021-05-31 15:48] VITALS: BP 102/64; PULSE 82
[2021-05-31] MEDS: traZODone HCL 100 MG TABLET PO (21:10)
[2021-05-31 21:11] VITALS: BP 119/69; PULSE 86
[2021-05-31] MEDS: Mirtazapine 7.5 MG TABLET PO (21:11)
--- NOTE | 2021-05-31 23:59 | P.PNPSI_ITS ---
Subjective Subjective Date of Service: 05/31/21 Reason For Visit: SI Subjective Notes: Conditional Voluntary Interim History: pT ANXIOUS DYSPHORIC C/O ONGOING PAIN EDEMA ON NARCOTICS Medication Compliance: Yes Attending Groups: Yes Mental Status Exam Mental Status Exam Patient Appearance: Well Grooomed Patient Orientation: Person, Place, Time and Situation Level of Consciousness: Awake Patient Behavior: Appropriate Affect Description: Constricted, Depressed, Anxious and Apprehensive Ability to Follow Directions: Good Memory Description: Intact Hallucinations: None Delusions: Not Present Thought Process: Intact Thought Content: positive for Obsessional Thoughts, negative for Suicidal Ideation or negative for Homicidal Ideation Depressive Symptoms: Increased Anxiety, Hopelessness and Loss of Energy Judgement: Fair Diagnostics Vital Signs (24Hr): Vital Signs - 24 hr 05/31/21 07:40 05/31/21 08:09 05/31/21 15:45 Temperature 98.1 F 98.0 F Pulse Rate 95 95 82 Respiratory Rate 16 16 Blood Pressure 103/51 L 103/51 L 102/64 Pulse Oximetry 97 100 05/31/21 15:48 05/31/21 21:11 Temperature Pulse Rate 82 86 Respiratory Rate Blood Pressure 102/64 119/69 Pulse Oximetry Body Mass Index 23.3 Labs Results: 05/31/21 07:15 05/25/21 17:21 Labs: Laboratory Results - last 48 hr 05/31/21 05/31/21 07:15 07:15 WBC 7.5 RBC 2.62 L Hgb 8.5 L Hct 27.2 L MCV 103.8 H MCH 32.4 MCHC 31.3 RDW 13.9 Plt Count 344 D MPV 9.2 L Immature Gran % (Auto) 0.3 Neut % (Auto) 54.2 Lymph % (Auto) 34.6 Randall % (Auto) 6.8 Eos % (Auto) 2.8 Baso % (Auto) 1.3 Lymph # (Auto) 2.6 Randall # (Auto) 0.5 Eos # (Auto) 0.2 Baso # (Auto) 0.1 Abs Immat Gran (auto) 0.02 Absolute Neuts (auto) 4.1 Absolute Nucleated RBC 0.000 Nucleated RBC % (auto) 0.0 B-Natriuretic Peptide 150 H Imaging Radiology Impressions: ITS Impressions Venous Duplex 05/25/21 18:32 IMPRESSION: No DVT demonstrated in the bilateral lower extremities. Chest X-Ray 05/27/21 16:58 IMPRESSION: Unremarkable examination. Medications Medications Current Medications Generic Name Dose Route Start Last Admin Trade Name Tinq PRN Reason Stop Dose Admin Acamprosate 666 mg 05/25/21 09:00 05/31/21 21:11 Acamprosate Calcium 333 Mg Tablet.Dr PO 666 mg TID PERLITA Administration Acetaminophen 650 mg 05/19/21 21:14 05/31/21 15:49 Acetaminophen 325 Mg Tablet PO 650 mg Q6H PRN Administration Pain, Mild (Pain Scale 1-3) Al Hydroxide/Mg Hydroxide 30 ml 05/19/21 21:14 Magnesium Hydrox/Alum Hydrox 30 Ml Oral.Susp PO Q6H PRN Heartburn/Nausea Bupropion HCl 300 mg 05/23/21 09:00 05/31/21 08:10 Bupropion Hcl Xl 300 Mg Tab.Er.24h PO 300 mg DAILY PERLITA Administration Docusate Sodium 100 mg 05/19/21 21:14 Docusate Sodium 100 Mg Capsule PO DAILY PRN Constipation Folic Acid 1 mg 05/20/21 09:00 05/31/21 08:10 Folic Acid 1 Mg Tablet PO 1 mg DAILY PERLITA Administration Furosemide 20 mg 05/27/21 16:30 05/31/21 08:10 Furosemide 20 Mg Tablet PO 20 mg DAILY PERLITA Administration Protocol Hydroxyzine HCl 25 mg 05/19/21 21:14 05/31/21 01:40 Hydroxyzine Hcl 25 Mg Tablet PO 25 mg BEDTIME PRN Administration Anxiety Ibuprofen 600 mg 05/22/21 13:00 05/31/21 21:10 Ibuprofen 600 Mg Tablet PO 600 mg QID PERLITA Administration Loperamide HCl 2 mg 05/19/21 21:14 Loperamide Hcl 2 Mg Capsule PO Q4H PRN Diarrhea Magnesium Hydroxide 30 ml 05/19/21 21:14 Milk Of Magnesia 30 Ml Oral.Susp PO DAILY PRN Constipation Magnesium Oxide 400 mg 05/20/21 08:30 05/31/21 17:05 Magnesium Oxide 400 Mg Tablet PO 400 mg BIDPC PERLITA Administration Midodrine 5 mg 05/20/21 09:00 05/31/21 21:11 Midodrine Hcl 5 Mg Tablet PO 5 mg TID PERLITA Administration Mirtazapine 7.5 mg 05/30/21 21:00 05/31/21 21:11 Mirtazapine 7.5 Mg Tablet PO 7.5 mg BEDTIME PERLITA Administration Omeprazole 20 mg 05/20/21 06:30 05/31/21 05:30 Omeprazole 20 Mg Capsule. PO 20 mg DAILY@0630 PERLITA Administration Ondansetron HCl 4 mg 05/19/21 21:14 Ondansetron Hcl 4 Mg/2 Ml Vial IVPUSH Q8H PRN Nausea and Vomiting Oxycodone HCl 10 mg 05/27/21 10:59 05/31/21 21:11 Oxycodone Hcl Immed Release 5 Mg Tablet PO 10 mg Q4H PRN Administration Pain, Severe (Pain Scale 7-10) Pravastatin Sodium 10 mg 05/20/21 09:00 05/31/21 08:10 Pravastatin Sodium 10 Mg Tablet PO 10 mg DAILY PERLITA Administration Sodium Bicarbonate 650 mg 05/19/21 21:14 05/31/21 21:10 Sodium Bicarbonate 650 Mg Tablet PO 650 mg BID PERLITA Administration Thiamine HCl 100 mg 05/20/21 09:00 05/31/21 08:11 Thiamine Hcl 100 Mg Tablet PO 100 mg DAILY PERLITA Administration Trazodone HCl 50 mg 05/19/21 21:14 05/31/21 01:40 Trazodone Hcl 50 Mg Tablet PO 50 mg BEDTIME PRN Administration Insomnia Trazodone HCl 100 mg 05/29/21 21:00 05/31/21 21:10 Trazodone Hcl 100 Mg Tablet PO 100 mg BEDTIME PERLITA Administration Allergies Allergies Allergy/AdvReac Type Severity Reaction Status Date / Time No Known Allergies Allergy Verified 05/15/21 17:28 Assessment & Plan Assessment & Plan (1) Major depressive disorder with current active episode: Status: Acute Code(s): F32.9 - Major depressive disorder, single episode, unspecified Assessment and Plan: continue current mgmt. mood much improved. edenies SI Cont plan of care (2) Alcohol use disorder: Status: Acute Assessment and Plan: wanting sobriety (3) Open wound: Status: Acute Code(s): T14.8XXA - Other injury of unspecified body region, initial encounter Assessment and Plan: Remains depressed anxious complains of severe pain and edema remains on midodrine. Agreeable to switching trazodone to mirtazapine hopefully this will help Greater than 50% of the session was spent on counseling and/or coordination of care Reason for contiued inpatient stay Substantial Risk for: harm to self, rapid decompensation and med/psych decompen sation
[2021-06-01] MEDS: traZODone HCL 50 MG TABLET PO (00:11)
[2021-06-01] MEDS: Acetaminophen 325 MG TABLET 650 MG PO ×2 (03:52→10:32)
[2021-06-01] MEDS: oxyCODONE HCl Immed Release 5 MG TABLET 10 MG PO ×3 (03:52→12:42)
[2021-06-01 06:00] VITALS: BP 102/54; PULSE 91; RESP 20; TEMP 36.8; O2SAT 98
[2021-06-01] MEDS: Omeprazole 20 MG CAPSULE.DR PO (06:51)
[2021-06-01] MEDS: Pravastatin Sodium 10 MG TABLET PO (07:56)
[2021-06-01] MEDS: Magnesium Oxide 400 MG TABLET PO (07:56)
[2021-06-01] MEDS: buPROPion HCl XL 300 MG TAB.ER.24H PO (07:56)
[2021-06-01] MEDS: Ibuprofen 600 MG TABLET PO (07:56)
[2021-06-01] MEDS: Furosemide 20 MG TABLET PO (07:56)
[2021-06-01] MEDS: Folic Acid 1 MG TABLET PO (07:56)
[2021-06-01] MEDS: Thiamine HCL 100 MG TABLET PO (07:57)
[2021-06-01] MEDS: Midodrine HCl 5 MG TABLET PO (07:57)
[2021-06-01] MEDS: Acamprosate Calcium 333 MG TABLET.DR 666 MG PO (07:57)
[2021-06-01] MEDS: Sodium Bicarbonate 650 MG TABLET PO (07:58)
--- NOTE | 2021-06-01 12:22 | P.DS_ITS ---
DS: Providers Provider Date of Service: 06/01/21 Date of admission: 05/19/21 21:02 Primary care physician: Unknown Physician Consults: 05/22/21 11:55 Consult to General Surgery Routine Consulting Provider: Andrey Clements Reason for consultation: assess wound, worsening Has provider been notified: No 05/24/21 09:39 Consult to Hospitalist Routine Consulting Provider: Hospitalist Reason For Exam: B/L pedal edema; pain mgmt for incision site 06/01/21 08:20 Consult to Hospitalist Routine Consulting Provider: Hospitalist Reason For Exam: ongoing mitodrine narcotics edema ? etiology tx DS: Diagnosis Discharge Diagnosis (1) Major depressive disorder with current active episode: Status: Acute (2) Alcohol use disorder: Status: Acute (3) Open wound: Status: Acute DS: Medications Discharge Medications Home Medications: Previous Rx's Medication Instructions Recorded Campral 666 mg PO TID 30 Days #180 cap 06/01/21 acamprosate 333 mg tablet,delayed 666 mg PO TID 30 Days #180 tab 06/01/21 release bupropion HCl 300 mg 24 hr tablet, 300 mg PO DAILY 30 Days #30 tab 06/01/21 extended release folic acid 1 mg tablet 1 mg PO DAILY 30 Days #30 tab 06/01/21 furosemide 40 mg tablet 40 mg PO DAILY 30 Days #30 tab 06/01/21 hydroxyzine HCl 25 mg tablet 25 mg PO BEDTIME PRN 30 Days #30 06/01/21 tab hydroxyzine HCl 25 mg tablet 25 mg PO BEDTIME PRN 30 Days #30 06/01/21 tab ibuprofen 600 mg tablet 600 mg PO QID 30 Days #120 tab 06/01/21 magnesium oxide 400 mg (241.3 mg 400 mg PO BIDPC 30 Days #60 tab 06/01/21 magnesium) tablet midodrine 5 mg tablet 5 mg PO TID 30 Days #90 tab 06/01/21 mirtazapine 15 mg tablet 15 mg PO BEDTIME 30 Days #30 tab 06/01/21 oxycodone 10 mg tablet 10 mg PO Q4H PRN 15 Days #90 tab 06/01/21 pantoprazole 40 mg tablet,delayed 40 mg PO DAILY 30 Days #30 tab 06/01/21 release pravastatin 10 mg tablet 10 mg PO DAILY 30 Days #30 tab 06/01/21 sodium bicarbonate 650 mg tablet 650 mg PO BID 30 Days #60 tab 06/01/21 thiamine mononitrate (vit B1) 100 100 mg PO DAILY 30 Days #30 tab 06/01/21 mg tablet trazodone 100 mg tablet 100 mg PO BEDTIME 30 Days #30 tab 06/01/21 trazodone 50 mg tablet 50 mg PO BEDTIME PRN 30 Days #30 06/01/21 tab trazodone 50 mg tablet 50 mg PO BEDTIME PRN 30 Days #30 06/01/21 tab Mental Status Exam Mental Status Exam Patient Appearance: Well Grooomed Patient Orientation: Person, Place, Time and Situation Level of Consciousness: Awake Patient Behavior: Appropriate Mood Description: Depressed Affect Description: Constricted, Depressed, Anxious and Apprehensive Ability to Follow Directions: Good Memory Description: Intact Hallucinations: None Delusions: Not Present Thought Process: Intact Thought Content: negative for Suicidal Ideation or negative for Homicidal Ideation Depressive Symptoms: Increased Anxiety, Hopelessness and Loss of Energy Judgement: Fair Data Data Completed and Pending Completed studies during hospitalization [Text1]: 05/25/21 05/25/21 05/31/21 17:21 17:21 07:15 WBC 7.5 RBC 2.62 L Hgb 8.5 L Hct 27.2 L MCV 103.8 H MCH 32.4 MCHC 31.3 RDW 13.9 Plt Count 344 D MPV 9.2 L Immature Gran % (Auto) 0.3 Neut % (Auto) 54.2 Lymph % (Auto) 34.6 [place] % (Auto) 6.8 Eos % (Auto) 2.8 Baso % (Auto) 1.3 Lymph # (Auto) 2.6 [place] # (Auto) 0.5 Eos # (Auto) 0.2 Baso # (Auto) 0.1 Abs Immat Gran (auto) 0.02 Absolute Neuts (auto) 4.1 Absolute Nucleated RBC 0.000 Nucleated RBC % (auto) 0.0 Sodium 141 Potassium 4.6 Chloride 108 Carbon Dioxide 26 Anion Gap 12 BUN 5 L D Creatinine 0.61 Estim Creat Clear Calc 85.1 Estimated GFR > 60 Random Glucose 97 Calcium 8.8 D Magnesium 2.2 Total Bilirubin < 0.2 Direct Bilirubin < 0.2 AST 16 ALT 11 Alkaline Phosphatase 82 B-Natriuretic Peptide 195 H Total Protein 5.4 L Albumin 3.5 05/31/21 07:15 WBC RBC Hgb Hct MCV MCH MCHC RDW Plt Count MPV Immature Gran % (Auto) Neut % (Auto) Lymph % (Auto) [place] % (Auto) Eos % (Auto) Baso % (Auto) Lymph # (Auto) [place] # (Auto) Eos # (Auto) Baso # (Auto) Abs Immat Gran (auto) Absolute Neuts (auto) Absolute Nucleated RBC Nucleated RBC % (auto) Sodium Potassium Chloride Carbon Dioxide Anion Gap BUN Creatinine Estim Creat Clear Calc Estimated GFR Random Glucose Calcium Magnesium Total Bilirubin Direct Bilirubin AST ALT Alkaline Phosphatase B-Natriuretic Peptide 150 H Total Protein Albumin Imaging Diagnostic Imaging Impressions Venous Duplex 05/25/21 18:32 IMPRESSION: No DVT demonstrated in the bilateral lower extremities. Chest X-Ray 05/27/21 16:58 IMPRESSION: Unremarkable examination. DS: Summary Hospital Course Hospital Course: per Fan LEON 05/20 H&P: recently homeless after sirisha left her due to her drinking (14 year relationship). recently lost her job due to calling out sick too many times due to drinking. daughter recently diagnosed with glaucoma, which she has found has affected her mood and alcohol consumption. had been staying in a hotel for the 30 days [employer], ended up cutting her wrist in hotel room.? a safety and welfare check had been requested by hotel staff and police found her in her room with wound and she was then brought to the ED. on interview with pt explains she has been depressed ever since her daughter was about 13 years old (she is 26 yo now).? she believes she has been drinking so much because of her depression.? she feels she has thrown herself into her work in order to avoid feeling her depression and has just been on the go for years and years.? she denies any symptoms of depression until she found out her daughter has glaucoma, per her report, and her drinking escalated.? she has been drinking 3-4 times per week, 3 or so drinks each time, for most of the past 20 years.? in the past month she has sharply escalated to what sounds like 750 mL of vodka in a day.? she reports she was sober at the time of her cutting.? she states she just felt like giving up, like there was nothing worth living for.? upon admission she felt the same, but since she has been in the hospital her perspective has changed.? she states she does not want to or kill herself and she just wants to get better.? she denies any HI/AVH.? she denies [place], sweats, tremors, n/v/d, panic.? she denies all neurovegetative Sx of depression until she heard the news about her daughter's health and started drinking more (calling into question her narrative of chronic depression and her drinking's being driven by it).? R/B of wellbutrin discussed,? including Sz, agitation/insomnia.? pt reports previous Rx for the medication for smoking cessation; she tolerated it without difficulty then.? agrees to start at wellbutrin XL 150 mg daily.? also interested in campral.? does not want antabuse or naltrexone.? plan made to start campral trial once it is evident she is tolerating wellbutrin again. Past Psychiatric History: pt denies any formal psychiatric history. she does report feeling she developed a depression when her daughter was about 13 yo and her daughter developed mental health issues and started to have psychiatric hospitalizations.? she believes she has been depressed more or less since, although she has never had any counseling or medication.? no h/o SA.? no SI prior to the index event, by her report. Medical Evaluation Reviewed: Yes [facility] Medical History? Alcohol abuse GERD (gastroesophageal reflux disease) Hyperlipidemia Hypertension Family History: daughter - diagnosed with bipolar disorder and ADHD.? currently doing well, on medication.? daughter has h/o psychiatric hosps. pt's father and various non-first degree relatives with alcohol use disorder. Social History: lived in [place], [place] until 10 yo, then moved to [place].? has 2 younger brothers and grew up with both parents in the home.? one daughter who is 26 yo and recently moved to [place]. Substance History: pt reports h/o drinking 3-4 nights weekly about 3 drinks per night for most of the past 20 years.? she had a detox about 23 yrs ago at [facility] and then was sober 2.5 years.? since she learned her daughter has glaucoma she began drinking more (daughter also recently moved to [place]).? then she lost her housing, fiancee, and job; she radically increased her drinking over the past month such that she is unable to reliably indicate how much she was drinking, but she states that some days she consumed a bottle of vodka. cigarettes - yes cannabis - yes (utox POS) per Fan LEON 05/21 Progress Note: pt reports she continues to improve in terms of her mood, just wants to get better and move on with her life.? interested in rehab for AUD Tx.? mother brought her some clothes and will be visiting today.? feeling lonely and sad.? plans to call her daughter today as well.? did not sleep well last night but declines to increase trazodone dosing for the time being.? agreeable to increase wellbutrin on tuesday and then start campral on tuesday.? no other complaints or requests, states she is enjoying art group and looking forward to attending more psychotherapy groups.? learning about coping skills.? per staff, anxious and depression 03/12.? angry with her self for what she has done.? showering, saw wound care nurse last night.? states wound not closed.? attending groups, pleasant.? interacting with peers. per Fan LEON 05/22 Progress Note: pt c/o severe pain at her incision site not relieved by oxycodone.? MD and pt agree to schedule ibuprofen 600 mg QID and T/C hospitalist consult if pain does not improve with ibuprofen.? pt reports that otherwise she is feeling better, had a good talk with her daughter this morning and her mother last night.? interested in rehab.? no other complaints or requests.? per staff, pt has been active, out of her room, attending groups.? c/o 05/12 anxiety and 04/11 depression.? wound open but no signs of infection.? late rin the day RN reported she asked wound nurse to come look at the wound and wound nurse recommended a surgical consult. per Fan LEON 05/25 Progress Note: c/o pain at incision site.? surgeon saw her tuesday and re-dressed the wound, allowing it to breathe.? surgeon to come see her again today.? hospitalist also coming to see her about edema.? otherwise her motivation and future orientation remain in place, just taking a real backseat to the pain.? agrees to increase frequency of oxycodone to Q4H PRN rather than Q6H.? also consulted hospitalist on the pain mgmt subject, hospitalist to see pt today to address.? per staff, pt visible in the milieu and attending groups.? dep 03/12.? margaret anxiety up.? pain 07/12.? no SI/HI. per Fan LEON 05/27 Progress Note: pt c/o pedal edema's not improving with TEDs in the past 24H and feet hurting a lot.? clearly in pain ambulating about the unit, putting pressure on feet.? also c/o severe incisional pain.? MD informs pt will seek hospitalist and surgical input on these problems.? otherwise no complaints, states she had a good visit with mother, awaiting word on referral to rehab.? per staff, attended 2 of three groups yesterday.? anx 01/10.? dep 02/09.? no SI/HI.? tearful in 1:1 mtg.? feeling safe on unit.? wound healing better.? using TEDs, legs up.? visted with mother. per Fan LEON 05/28 Progress Note: pt reports her pain is unchanged.? she states the surgeon saw her this morning and told her it is healing well now.? she states she has started lasix but has observed no change in the swelling of her lower extremities.? believes she will have cardiac echo today.? stated her CXR was WNL.? asks about gabapentin for pain, asked to be patient while we decrease her edema and see how the healing goes for her arm.? no other complaints or requests.? per staff, taking lots of pain meds.? pleasant, hopeful.? leg pain, edema.? started lasix.? echo pending. per Fan LEON 05/29 Progress Note: still c/o sore legs and laceration site.? little change in edema.? reassured to give it through the weekend.? otherwise stable, awaiting bed at [facility].? results of TTE discussed, no need for alarm.? agreeable to increase traz to 100 mg QHS with 50 mg available PRN.? per staff, restless.? no issues.? passages referral pending. 06/01: c/o swollen, painful legs. depressed re the pain from wound debridement this morning. was instructed on wound cleaning. hesitant to discharge today, but with encouragement from staff and agrees to go to [facility], which has accepted her for today. aftercare for medical conditions can be managed from there, and pt so instructed. per staff, pt reporting anxiety 01/10, dep 02/09. c/o insomnia. fixated on LE pain. attending groups. forgetful sometimes, v isible, pleasant. Time Spent with Patient Time attestation: Total time spent providing and/or coordinating discharge services: Discharge Plan Discharge Patient Disposition: Home, Self-Care Discharge Diagnosis: Major Depressive Disorder Referrals: Therapy & Psychiatry [Other] (Referral submitted, appointments will be provided to you once at [facility]) PCP [Other] - 3-5 Days (You will need to go in-person to the office to choose a provider and schedule an appointment) Physician,Unknown [Primary Care Provider] - 1 Week Discharge Medications: New furosemide 40 mg Tablet 40 mg PO DAILY 30 Days Qty: 30 RF: 0 midodrine 5 mg Tablet 5 mg PO TID 30 Days Qty: 90 RF: 0 pravastatin 10 mg Tablet 10 mg PO DAILY 30 Days Qty: 30 RF: 0 trazodone 100 mg Tablet 100 mg PO BEDTIME 30 Days Qty: 30 RF: 0 mirtazapine 15 mg Tablet 15 mg PO BEDTIME 30 Days Qty: 30 RF: 0 ibuprofen 600 mg Tablet 600 mg PO QID 30 Days Qty: 120 RF: 0 bupropion HCl 300 mg Tablet Extended Release 24 Hr 300 mg PO DAILY 30 Days Qty: 30 RF: 0 acamprosate 333 mg tablet,delayed release (DR/EC) 666 mg PO TID 30 Days Qty: 180 RF: 0 hydroxyzine HCl 25 mg tablet 25 mg PO BEDTIME PRN (Reason: insomnia) 30 Days Qty: 30 RF: 0 trazodone 50 mg tablet 50 mg PO BEDTIME PRN (Reason: sleep) 30 Days Qty: 30 RF: 0 oxycodone 10 mg tablet 10 mg PO Q4H PRN (Reason: severe pain) 15 Days Qty: 90 RF: 0 trazodone 50 mg Tablet 50 mg PO BEDTIME PRN (Reason: Insomnia) 30 Days Qty: 30 RF: 0 hydroxyzine HCl 25 mg Tablet 25 mg PO BEDTIME PRN (Reason: Anxiety) 30 Days Qty: 30 RF: 0 Campral 666 mg PO TID 30 Days Qty: 180 RF: 0 Continued magnesium oxide 400 mg (241.3 mg magnesium) Tablet 400 mg PO BIDPC 30 Days Qty: 60 RF: 0 sodium bicarbonate 650 mg Tablet 650 mg PO BID 30 Days Qty: 60 RF: 0 pantoprazole 40 mg Tablet,Delayed Release (Dr/Ec) 40 mg PO DAILY 30 Days Qty: 30 RF: 0 folic acid 1 mg Tablet 1 mg PO DAILY 30 Days Qty: 30 RF: 0 thiamine mononitrate (vit B1) 100 mg Tablet 100 mg PO DAILY 30 Days Qty: 30 RF: 0 Discontinued pravastatin 10 mg Tablet 10 mg PO DAILY RF: 0 midodrine 5 mg Tablet 5 mg PO TID 7 Days Qty: 21 RF: 0 Discharge Orders: Discharge Order (Routine); Ordered 06/01/21 Ordered By: Cliff Chavira Diet: advance to usual diet Activity on Discharge: As tolerated Stand Alone Forms: Patient Portal Discharge page Care Plan Goals: remain safe in community treatment Health Concerns: healing of laceration resolution of pedal edema resolution of pain associated with pedal edema and laceration Plan of Treatment: engage in Passages program after discharge. engage in treatment with PCP re laceration, pain, and edema complaints. engage in outpatient therapy and medications management for mental health and substance abuse concerns. Assessment: not at imminent risk of harm to self or others Discharge Date/Time: 06/01/21 12:47
== END 2021-06-01 12:47 | disposition home or self-care (01) | DRG 754 ==
PROVIDERS: Nurse Practitioner Acute Care; Psychiatry & Neurology Psychiatry; Admitting Provider Social Worker; Visit Provider Psychiatry & Neurology Psychiatry
DX: F32.9 Major depressive disorder, single episode, unspecified (principal); R45.851 Suicidal ideations; E78.5 Hyperlipidemia, unspecified; F10.10 Alcohol abuse, uncomplicated; K21.9 Gastro-esophageal reflux disease without esophagitis; S61.511A Laceration without foreign body of right wrist, initial encounter; X78.9XXA Intentional self-harm by unspecified sharp object, initial encounter; F17.210 Nicotine dependence, cigarettes, uncomplicated; Z91.5 Personal history of self-harm; Z71.6 Tobacco abuse counseling; Z59.0 Homelessness; Z79.1 Long term (current) use of non-steroidal anti-inflammatories (NSAID); Z79.899 Other long term (current) drug therapy
CPT/HCPCS: 36415; 71045; 80048; 80061; 80076; 82607; 82746; 83036; 83735; 83880; 84443; 85025; 93306; 93970

== ENCOUNTER 2021-09-17 08:16 | Outpatient (REF) | payer OTHER, SELFPAY ==
[2021-09-17 08:57] LABS: COVID-19 Test Negative (Negative); IDNOW Serial# 16C4AD1C
== END 2021-09-17 08:17 | disposition home or self-care (01) ==
LOC: HO.LAB 08:16
PROVIDERS: PCP Physician Assistant Medical; Visit Provider Internal Medicine
DX: Z20.822 Contact with and (suspected) exposure to COVID-19 (principal)
CPT/HCPCS: 36415; 87635; C9803